=== PATIENT | female | born 1945 | race Caucasian/White ===

== ENCOUNTER 2023-04-04 12:06 | Emergency (ER) | payer MEDICARE, SELFPAY ==
[2023-04-04 12:08] VITALS: BP 160/78
[2023-04-04 13:03] VITALS: BMI 27.2
--- NOTE | 2023-04-04 13:36 | ED.GENMED ---
History of Present Illness
General
Chief Complaint: Musculo-Skeletal Complaint
Time Seen by Provider: 04/04/23 13:06
Travel History
Have you had any contact with someone who has COVID-19?: No
Do you have any symptoms of coronavirus? Fever > 100 degrees, chills, cough, shortness of breath, sore throat, loss of taste or smell, muscle aches, or headache?: No
History of Present Illness
History of Present Illness:
77-year-old female with history of A-fib on Eliquis presents to the emergency department for evaluation of left-sided low back developing earlier today while moving heavy things in her barn. Pain radiates from the upper gluteal region to the
anterior left thigh. Pain is worse when attempting to stand up. Denies any loss of bladder or bowel function. Took 2 Tylenol before coming in without relief. Denies any falls or direct trauma
Past History
Past History
ED Past Medical History: Arrthythmia (Atrial flutter with ablation), CAD, Hypercholesterolemia, [place], Valvular disease and Other (Herniated disc, Diverticulitis, PE)
ED Past Surgical History: Cardiac (Aortic valve replaced,) and Cholecystectomy
Social History
Tobacco: Former smoker
Alcohol: Occasional
Drug: None
Personal: ( in Assisted living due to intracranial bleed after fall)
Living: alone
Employment: Employed
Family History
Family History: Other (Noncontributory)
Review of Systems
Review of Systems
Allergies reviewed?: Yes
All Other Systems: ROS reviewed and negative except as documented in HPI and ROS
Phy Exam
Physical Exam
Physical Exam:
GEN: Well appearing, NAD, WDWN
HEENT: Oral mucosa moist, no scleral icterus
Cardiac: Regular rate
Lung: No respiratory distress, no tachypnea
MSK: No gross deformity or injuries. No midline lumbar spine tenderness. There is reproducible tenderness to the left gluteal region. Significant pain with erect posture. Bilateral lower extremity strength is 5 out of 5 in all [place]
Skin: Good color, no pallor or jaundice, no rashes
Neuro: AO x3, moves all extremities freely
Psych: Calm, cooperative
Course
Orders/Labs/Results
Orders:
Orders
04/04/23 13:35
Lidocaine [Lidocaine 4% Patch] 1 patch TOPICAL NOW STA
Prednisone [Deltasone] 40 mg PO NOW STA
Tizanidine [Zanaflex] 2 mg PO NOW STA
Vital Signs
Initial and Last Documented VS:
Initial Vital Signs
Temp Pulse Resp BP Pulse Ox
97.8 F 66 18 160/78 99
04/04/23 12:08 04/04/23 12:08 04/04/23 12:08 04/04/23 12:08 04/04/23 12:08
Last Documented Vital Signs
Temp Pulse Resp BP Pulse Ox
97.8 F 66 18 160/78 99
04/04/23 12:08 04/04/23 12:08 04/04/23 12:08 04/04/23 12:08 04/04/23 12:08
MDM/Problems Addressed
MDM/Problems Addressed:
Symptoms consistent with lumbar radiculopathy potentially from disc herniation versus muscle spasm. Discussed supportive care and return parameters. Cannot treat with NSAIDs due to her use of anticoagulants. No traumatic injuries to suggest need
for imaging. No red flag symptoms concerning for cauda equina
*Critical Care Note
Total Time (30-74mins, 75-104mins- exclusive of procedures): Not Applicable
ED Attending Note
-
Portions of this chart may have been created with voice recognition software.� Occasional wrong word or��sound alike� substitutions may have occurred due to the inherent limitations of voice recognition software.
Discharge Plan
Departure
Patient Disposition: Home (Routine Discharge)
Date of Disposition: 04/04/23
Time of Disposition: 14:45
Patient with high blood pressure during this ER visit?: No
Discharge Problem:
Acute left lumbar radiculopathy
Instructions: Radiculopathy (DC)
Prescriptions:
New
methylprednisolone [Medrol (Kameron)] 4 mg tablets,dose pack
See Rx Instructions .ROUTE .COMPLEX Qty: 21 0RF
Rx Instructions:
orally per package directions
methocarbamol 750 mg tablet
750 - 1,500 mg PO TID PRN (Reason: pain) Qty: 20 0RF
No Action
nadolol [Corgard] 20 MG tablet
10 mg PO DAILY
Eliquis 5 MG tablet
5 mg PO BID Qty: 60 3RF
[facility]
1 tab PO DAILY
Referrals:
Saba Arndt MD [Family Provider] -
Interventions
Interventions:
*Risk Screen - Suicide Last Done: 04/04/23 12:11
*General Assessment Last Done: 04/04/23 12:11
*Neglect/Abuse Screening Last Done: 04/04/23 12:11
ED- Fall Risk Assessment Last Done: 04/04/23 13:03
*ED COVID-19 Vaccine History Last Done: 04/04/23 13:03
*Nursing Disposition Last Done: 04/04/23 14:48
ED-Musculoskeletal Assessment Last Done: 04/04/23 13:03
Discharge Date and Time
Discharge Date/Time: 04/04/23 14:49
[2023-04-04] MEDS: LIDOCAINE 4% PATCH 1 PATCH TOPICAL (13:42)
[2023-04-04] MEDS: DELTASONE 40 MG PO (13:45)
[2023-04-04] MEDS: ZANAFLEX 2 MG PO (13:45)
== END 2023-04-04 14:49 | disposition home or self-care (01) ==
LOC: EMR 12:06
PROVIDERS: EMERGENCY PHYSICIAN Emergency Medicine; FAMILY PHYSICIAN Internal Medicine
DX: M54.16 Radiculopathy, lumbar region (principal); I48.91 Unspecified atrial fibrillation; Z87.891 Personal history of nicotine dependence
CPT/HCPCS: 99283

== ENCOUNTER → 2023-04-28 10:46 | Outpatient (REF) | payer MEDICARE, SELFPAY | LOC: DHCBS HW 10:46 | PROVIDERS: ATTENDING PHYSICIAN Internal Medicine Cardiovascular Disease; FAMILY PHYSICIAN Internal Medicine | DX: I35.0 Nonrheumatic aortic (valve) stenosis (principal) | CPT/HCPCS: 93306 ==

== ENCOUNTER → 2023-12-26 09:30 | Outpatient (REF) | payer MEDICARE, SELFPAY | LOC: PAVMRI 09:30 | PROVIDERS: ATTENDING PHYSICIAN Hospitalist | DX: K76.89 Other specified diseases of liver (principal) | CPT/HCPCS: 74183; A9575 ==

== ENCOUNTER 2024-02-27 23:48 | Inpatient (IN) | payer MEDICARE, SELFPAY ==
[2024-02-27 19:32] VITALS: BP 134/55
[2024-02-27 22:23] VITALS: BMI 25.8
--- NOTE | 2024-02-27 23:00 | ED.GENMED ---
History of Present Illness
General
Chief Complaint: Abnormal Lab Value
Source: patient
Exam Limitations: none
Time Seen by Provider: 02/27/24 22:50
History of Present Illness
History of Present Illness:
See MDM
Past History
Past History
ED Past Medical History: Arrthythmia (Atrial flutter with ablation), CAD, Hypercholesterolemia, [place], Valvular disease and Other (Herniated disc, Diverticulitis, PE)
ED Past Surgical History: Cardiac (Aortic valve replaced,) and Cholecystectomy
Social History
Tobacco: Former smoker
Alcohol: Occasional
Drug: None
Personal: ( in Assisted living due to intracranial bleed after fall)
Living: alone
Employment: Employed
Family History
Family History: Other (Noncontributory)
Phy Exam
Physical Exam
Physical Exam:
See MDM
Course
Vital Signs
Initial and Last Documented VS:
Initial Vital Signs
Temp Pulse Resp BP Pulse Ox
98 F 55 18 134/55 96
02/27/24 19:32 02/27/24 19:32 02/27/24 19:32 02/27/24 19:32 02/27/24 19:32
Last Documented Vital Signs
Temp Pulse Resp BP Pulse Ox
98 F 55 18 134/55 96
02/27/24 19:32 02/27/24 19:32 02/27/24 19:32 02/27/24 19:32 02/27/24 19:32
MDM/Problems Addressed
Differential Diagnosis Includes:
HPI and MDM Narrative:
78-year-old female presenting with several days of bright red rectal bleeding. Patient had blood work and CT performed earlier today and was told to go to the emergency department. Patient is aware that she has a history of diverticulosis. She
states that she had blood with bowel movements but stopped eating to see if this would resolve the problem. Patient now was passing bright red blood with clots.
On exam, she is well-appearing nontoxic. Her abdomen is soft and nontender. Given the rectal bleeding with clots, discussed likely internal hemorrhoid versus diverticulosis bleed. Will admit overnight for hemoglobin trending
Physical exam
General: Well appearing and non-toxic
HEENT: protecting airway
Neck: appears supple
CV: No evidence of cyanosis. Regular rate and rhythm
Resp: No accessory muscle use
Abd: Non-distended and nontender
Extremities: No deformities
Neuro: alert
Psych: Normal affect
Skin: Intact
Problems Addressed including Acute and Chronic Conditions affecting care:
1. Lower GI bleeding
Acuity: acute
Prognosis: stable
Details: Given bright red blood with clots some internal process such as internal hemorrhoid versus diverticulosis. Outpatient CT confirms diverticulosis without other significant abnormality. Will admit overnight for hemoglobin trending
Differential Diagnosis (but not limited to):
Testing considered:
Drug therapy (if applicable): OTC meds, please see d/c instruction regarding Rx drugs
Amount and/or Complexity of Data Reviewed
Clinical info obtained from: Patient
External data reviewed: N/A
Labs I independently reviewed (but not limited to): hgb stable
Radiology: the CT scan was personally and independently reviewed. In addition, official CT report reviewed.
Pulse Ox: not hypoxic
EKG independently reviewed: N/A
Justice Court Judge: N/A
Critical Care: N/A
Risk of Complication:
Social Determinants of health: Good social support
Discussed with other providers: Hospitalist
Escalation of Care includes Admit/Obs: Given the rectal bleeding while on Eliquis, will admit for hemoglobin trending
Occasional wrong word or 'sound a like' substitutions may have occurred due to the inherent limitations of voice recognition software. Read the chart carefully and recognize, using context, where substitutions have occurred.
*Critical Care Note
Total Time (30-74mins, 75-104mins- exclusive of procedures): Not Applicable
ED Attending Note
-
Portions of this chart may have been created with voice recognition software.� Occasional wrong word or��sound alike� substitutions may have occurred due to the inherent limitations of voice recognition software.
Discharge Plan
Departure
Patient Disposition: Admit
Date of Disposition: 02/27/24
Time of Disposition: 23:12
Admit to: Med/Surg
Presentation/result/management discussed w/ accepting MD/DO: Hospitalist
Discharge Problem:
Acute lower GI bleeding
Prescriptions:
No Action
nadolol [Corgard] 20 MG tablet
10 mg PO DAILY
Eliquis 5 MG tablet
5 mg PO BID Qty: 60 3RF
[facility]
1 tab PO DAILY
methylprednisolone [Medrol (Kameron)] 4 mg tablets,dose pack
See Rx Instructions .ROUTE .COMPLEX Qty: 21 0RF
Rx Instructions:
orally per package directions
methocarbamol 750 mg tablet
750 - 1,500 mg PO TID PRN (Reason: pain) Qty: 20 0RF
Interventions
Interventions:
*Risk Screen - Suicide Last Done: 02/27/24 22:23
*General Assessment Last Done: 02/27/24 22:23
*Neglect/Abuse Screening Last Done: 02/27/24 22:23
ED- Fall Risk Assessment Last Done: 02/27/24 22:23
*ED COVID-19 Vaccine History Last Done: 02/27/24 22:23
Discharge Date and Time
Print Language: ROMANIAN
--- NOTE | 2024-02-27 23:11 | HPS.HSE ---
Family Physician
-
Family Physician:
Chief Complaint
-
Rectal bleeding
History of Present Illness
78-year-old with past medical history for A-fib, coronary artery disease, hyperlipidemia, [place], PE, rectal bleed presented to us with rectal bleeding for past 3 days. Patient complained of lower abdominal pain. Patient stated it was bloody diarrhea
associated with some clots. Denied nausea vomiting. Patient denied any headache, dizziness, syncope. Patient denied any chest pain or short of breath. Patient denied dysuria hematuria. Denied NSAID use
Her last colonoscopy was 6 years ago. She is scheduled for colonoscopy for March 20
Hemoglobin is stable at 14.4 admitting for further management.
Medical History
Past Medical History
Past Medical History: Reports Other
Additional Past Medical History:
Diverticulosis
Chronic A-fib
Hyperlipidemia
Pulmonary nodule
Pancreatic cyst
PE
Chronic heart failure
Guillain-Valenzuela�
Restrictive lung disease
LYMEDisease
Past Surgical History: Reports Other
Additional Past Surgical History:
Tonsillectomy
Cholecystectomy
Left wrist ORIF
Coronary artery bypass graft
Cardiac ablation
Aortic valve replaced replacement
Social History
Tobacco: Former Smoker
Alcohol: Occasional
Drug: None
Family History
Family History: Not pertinent
Allergies / Home Medications
Allergies reflects when Allergies were last updated in [facility].
Home Medications with original date entered in [facility]
Allergy/Medication List:
Allergies
Allergy/AdvReac Type Severity Reaction Status Date / Time
amiodarone [Amiodarone] Allergy Anaphylaxis Verified 04/04/23 12:11
hydrocodone bitartrate Allergy Vomiting Verified 04/04/23 12:11
[From Vicodin]
oxycodone HCl [From Percocet] Allergy Vomiting Verified 04/04/23 12:11
simvastatin [From Zocor] Allergy Hives Verified 04/04/23 12:11
Home Medications
apixaban 5 mg tablet (Eliquis) 5 mg PO BID #60 tabs 04/25/17
acetaminophen 500 mg tablet (Tylenol Extra Strength) 500 mg PO Q6HPRN PRN mild pain/fever 02/27/24
empagliflozin 10 mg tablet (Jardiance) 10 mg PO DAILY 02/27/24
ezetimibe 10 mg tablet 10 mg PO HS 02/27/24
nadolol 20 mg tablet 10 mg PO DAILY 02/27/24
Review of Systems
-
Constitutional: Reports No Symptoms
EENT: Reports No Symptoms
Respiratory: Reports No Symptoms
Cardiac: Reports No Symptoms
Abdomen/GI: Reports Abdominal Pain, Diarrhea and Bloody Stools
: Reports No Symptoms
Musculoskeletal: Reports No Symptoms
Skin: Reports No Symptoms
Neurological: Reports No Symptoms
Endocrine: Reports No Symptoms
Hematologic/Lymphatic: Reports No Symptoms
Psych: Reports No Symptoms
Physical Exam
Vital Signs
Vital Signs
Temp Pulse Resp BP Pulse Ox
98 F 55 18 134/55 96
02/27/24 19:32 02/27/24 19:32 02/27/24 19:32 02/27/24 19:32 02/27/24 19:32
Physical Exam
General: Well Developed, Well Nourished and No Apparent Distress
HEENT: NormoCephalic, Moist mucous membranes and Atraumatic
Respiratory: Clear
Cardiac: S1/S2 and Regular Rhythm; No Murmur or Rub
GI: Soft, Non Tender, Non Distended and Normal Bowel Sounds; No Organomegaly
Rectal: Deferred by Provider
Musculoskeletal: No Clubbing, No Cyanosis and No Edema
Skin: No Rash
Neuro: AO x 3 and Nonfocal/grossly intact
Psych: Calm
Data Reviewed
-
CT Scan: Report Reviewed by me
Lab Data: Labs Reviewed by me
Impression/Plan
-
# Rectal bleeding on anticoagulant
-Hemoglobin stable at 14.4
-CT abdomen pelvis with impression of Descending colon and sigmoid diverticulosis limited without oral contrast opacification, without gross accompanying inflammatory changes. No intestinal obstruction or free air.Numerous hepatic low-attenuation
lesions only the largest of which can be confirmed as cysts.Small fat only containing umbilical hernia.Symmetric renal excretion.Prior cholecystectomy.
-Trend hemoglobin
-Clear liquid diet for now
-IV PPI
-GI consult
# Hyperkalemia
-K5.5
-Trend BMP
# History of A-fib
-Will obtain EKG
-Hold Eliquis
-NADOLOL continued
# History of CHF
-patient not in acute exacerbation
-Jardiance continued
-She is not on diuretics
# Hyperlipidemia
-Zetia continued
# DVT prophylaxis
-SCDs
# CODE STATUS
-Full code
--- NOTE | 2024-02-27 23:28 | W.PN.UPDATE ---
Update Note
Progress Note Update
This note serves as an addendum to the H&P by theater set production designer MARIA
[place] LISSET
HPI
78F HX Atrial flutter with ablation on chr eliquis, AoVR, MD, CAD, Hypercholesterolemia seen at ER
- Acute rectal bleed for last 3 days
- Had s/p OP CT AP with IV & oral contrast POS Descending colon and sigmoid diverticulosis
- Current Hgb 14 and stable
- Hemodynamically stable
- last dose of Eliquis oat 8am 02/27/24
PHX as above
Vital Signs
Temp Pulse Resp BP Pulse Ox
98 F 55 18 134/55 96
02/27/24 19:32 02/27/24 19:32 02/27/24 19:32 02/27/24 19:32 02/27/24 19:32
PE
Gen: not toxic , NAD
HEENT: anicteric
Neck: supple
Lungs: CTA
Cor: RRR S1 S2
Abdomen: soft non tender
RADIO PERFORMER: AAO3 NFND
MS: no edema
Psych: approbative
Laboratory Tests
11/22/22 02/27/24
11:10 12:43
Hgb 14.2 14.4
Potassium 5.5 H
eGFR > 60.00
CT Abd/pel W Iv And Oral Cont
- Descending colon and sigmoid diverticulosis limited without oral contrast opacification, without gross accompanying inflammatory changes. No intestinal obstruction or free air.
- Numerous hepatic low-attenuation lesions only the largest of which can be confirmed as cysts.
- Small fat only containing umbilical hernia.
- Symmetric renal excretion.
- Prior cholecystectomy.
ASSESSMENT & PLAN
Acute painful rectal bleed vs. hematochezia suspect Diverticulosis sv colitis
HX trial flutter with ablation eliquis: last dose was today 8am 02/27/24
Current Hgb 14s and stable
Hemodynamically stable
- NEG CT for any inflammatory changes
- clear
- observe Hgb
- IV PPI daily
- T & S , Blood consented
- if become active GI bleed , suggest CTA AP
- GI consult
Hyperkalemia due to GI reabsortiop ofg K gtomhemilezed bliid in the gut
- f/u K in AM
Chr conditions
HX AoVR
HX MD, CAD
Hypercholesterolemia
- Pending Rx reconciliation
DVT Px: SCD
Full code
IP TLM
[2024-02-27 23:30] VITALS: BP 133/89
[2024-02-28] VITALS (17 sets, daily range): BP systolic 103–133; BP diastolic 46–68; PULSE 54–81; BMI 25.9
--- NOTE | 2024-02-28 02:55 | PTCARENOTE ---
Received pt from ER into 2258 for rectal bleeding x 3 days. Pt is AAOx3 independent in the room. SR on the monitor VSS. Clear liquid diet.Call trinh within reach.
[2024-02-28 03:43] LABS: % Basophils 0.6 % (0-2); % Eosinophils 1.7 % (0-6); % Immature Granulocytes 0.2 % (0-0.5); % Lymphocytes 26.8 % (20.5-51.1); % Monocytes 10.1 % (1.7-9.3); % Neutrophils 60.6 % (42.2-75.2); Absolute Eosinophils 0.1 10^3/uL (0-0.7); Absolute Lymphocytes 1.4 10^3/uL (1.2-3.4); Absolute Monocytes 0.5 10^3/uL (0.1-0.6); Absolute Neutrophils 3.2 10^3/uL (1.4-6.5); Hematocrit 35.5 % (37.0-47.0); Hemoglobin 12.2 g/dL (12.0-16.0); Mean Corp Hgb Conc. 34.4 g/dL (33.0-37.0); Mean Corpuscular Hgb 32.7 pg (27.0-31.0); Mean Corpuscular Volume 95.2 fL (81.0-99.0); Mean Platelet Volume 11.5 fL (7.4-10.4); Nucleated Red Blood Cells % 0 %; Platelet Count 180 10^3/uL (130-400); Red Blood Cell Count 3.73 10^6/uL (4.20-5.40); Red Cell Dist. Width 12.3 % (11.5-14.5); White Blood Cell Count 5.2 10^3/uL (4.8-10.8)
[2024-02-28 04:04] LABS: Blood Urea Nitrogen 18 mg/dl (7-17); Calcium 8.8 mg/dl (8.4-10.2); Carbon Dioxide 25 mmol/L (22-30); Chloride 102 mmol/L (98-107); Estimated Creatinine Clearance 56 ml/min; Glucose 71 mg/dl (70-99); Potassium 4.3 mmol/L (3.5-5.1); Sodium 134 mmol/L (135-145); eGFR > 60.00
[2024-02-28] MEDS: NSS (PRESERVATIVE FREE) 10 ML IV (07:54)
[2024-02-28] MEDS: PROTONIX IV 40 MG IV (07:54)
[2024-02-28] MEDS: FARXIGA 10 MG PO (07:54)
--- NOTE | 2024-02-28 07:56 | CON.GI ---
Addendum entered and electronically signed by Tanesha Connor MD 02/28/24 15:51:
I saw and examined the patient.
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
Comment: 78-year-old female with history of atrial flutter on Eliquis, history of diverticulitis in the past, CAD presented with lower abdominal discomfort and also rectal bleeding on and off in the last week. Reports bright blood in the toilet
bowl with normal looking stool, this morning had multiple loose stool but blood only on the toilet tissue. Rectal exam was heme-negative brown stool.CT scan of the abdomen pelvis with IV and oral contrast showing diverticulosis without any evidence
of diverticulitis and numerous liver cysts noted, oral contrast did not completely opacify the bowel. Last colonoscopy in [address] Young, diverticulosis noted.
History of diverticulitis, last 1 4 years ago. She was scheduled to have colonoscopy with Dr. De Oliveira in the fall but canceled multiple times due to COVID and prep intolerance. Currently has it scheduled for 03/20.
-Lower abdominal cramping, loose stool and also bloody bowel movements
No evidence of diverticulitis on CAT scan
Cannot rule out infectious diarrhea, will check stool for culture, C. difficile, WBC, norovirus.
Okay for full liquid diet.
Bloody bowel movements could be related to hemorrhoids given there was no significant drop in hemoglobin and heme-negative stool.
Agree with Anusol suppository.
If no further bleeding, okay to resume anticoagulation and keep up with the colonoscopy appointment 03/20. Suggested that patient should try either Plenvu or Suflave but slow down if she gets nauseous as she did report intolerance to Sutabs and
MiraLAX in the past.
If bleeding continues, will do Colonoscopy inpatient
-History of pancreatic cysts on MRI in December 2023, repeat in 1 year.
Will follow
Original Note:
Consultation
-
Date/Time Consultation Requested: 02/28/24114
Date/Time Consultation Performed: 02/28/24 0930
Requesting Provider: HENRIK Stout
Performing Provider: HENRIK Peters, Tanesha Connor MD
Reason for Consultation: rectal bleeding
Medical History
Chief Complaint / HPI
Chief Complaint: rectal bleeding.
History of Present Illness:
Pt is a 78yo with hx A flutter with prior ablation on Eliquis, pancreatic tail lesion, CAD, hypercholesterolemia, HI, valvular disease with prior AVR, herniated disc, diverticulitis, PE, prior jennifer with onset rectal bleeding with bloody stool with
clots. CT completed on admission with IV and oral with diverticulosis with milted oral contrast opacification,, hepatic lesions largest noted cyst, fat containing hernia and prior jennifer. Last colonoscopy [address] Young with noted diverticulosis
exam otherwise normal. Pt has been scheduled several time this fall for colonoscopy with lyme then covid and difficulty with prep now due to complete 03/[address] De Oliveira.
In review with patient she began with rectal bleeding with some lower abdominal pain about 4-5 days ago. She admits to some loose stool and red blood in entire bowel with clots and formed stool. hbg 12.2 on admission with no further stool,
blood or pain since admission. She is on chronic Eliquis that she took 02/26. She denies odynophagia, GERD, nausea, vomiting, constipation or black stools. She did vomiting blood with attempted prep in past but no recurrence.
Pt also noted with 1.5 cm pancreatic tail cystic lesion with slight increased on MRI in December with recommended 1 year follow up.
Past Medical History
Past Medical History: Arrhythmias (aflutter with prior ablation), CAD, Hypercholesterolemia, HI, Valvular Disease and Other (herniated disc, diverticulitis, PE, pancreatic tail cyst )
Past Surgical History: Cardiac (AVR ) and Cholecystectomy
Social History
Tobacco: Former Smoker (in teen years only )
Alcohol: Daily (1 glass wine daily )
Drug: None
Living: Alone
Employment: Retired
Family History
Family History: Other (sister wtih colon CA in 80's)
Allergies / Home Medications
Allergy/AdvReac Type Severity Reaction Status Date / Time
amiodarone [Amiodarone] Allergy Anaphylaxis Verified 04/04/23 12:11
hydrocodone bitartrate Allergy Vomiting Verified 04/04/23 12:11
[From Vicodin]
oxycodone HCl [From Percocet] Allergy Vomiting Verified 04/04/23 12:11
simvastatin [From Zocor] Allergy Hives Verified 04/04/23 12:11
�Medication �Instructions �Recorded
apixaban 5 mg tablet (Eliquis) 5 mg PO BID #60 tabs 04/25/17
acetaminophen 500 mg tablet 500 mg PO Q6HPRN PRN mild 02/27/24
(Tylenol Extra Strength) pain/fever
empagliflozin 10 mg tablet 10 mg PO DAILY 02/27/24
(Jardiance)
ezetimibe 10 mg tablet 10 mg PO HS 02/27/24
nadolol 20 mg tablet 10 mg PO DAILY 02/27/24
Review of Systems
-
History Source: Patient
Constitutional: Reports Other (lightheadedness )
EENT: Reports No Symptoms
Respiratory: Reports No Symptoms
Cardiac: Reports No Symptoms
Abdomen/GI: Reports Abdominal Pain and Bloody Stools
: Reports No Symptoms
Musculoskeletal: Reports No Symptoms
Skin: Reports No Symptoms
Neurological: Reports Weakness
Endocrine: Reports No Symptoms
Hematologic/Lymphatic: Reports Bleeding
Vital Signs
Temp Pulse Resp BP Pulse Ox
98.6 F 62 20 105/63 97
02/28/24 01:22 02/28/24 07:00 02/28/24 01:22 02/28/24 05:13 02/28/24 01:22
Physical Exam
Exam
General: Well Developed, Well Nourished and No Apparent Distress
HEENT: Normocephalic and Anicteric
Respiratory: Clear
Cardiac: Regular Rhythm and Murmur
GI: Soft, Non Tender and Non Distended
Rectal: Brown, Hem Negative and Hemorrhoids
Musculoskeletal: No Clubbing and No Cyanosis
Skin: Warm and Dry
Neuro: Awake, Alert and AO x 3
Psych: Calm
Results
WBC 5.2 10^3/uL (4.8-10.8) 02/28/24 03:17
Hgb 12.2 g/dL (12.0-16.0) 02/28/24 03:17
Hct 35.5 % (37.0-47.0) L 02/28/24 03:17
MCV 95.2 fL (81.0-99.0) 02/28/24 03:17
Plt Count 180 10^3/uL (130-400) 02/28/24 03:17
Absolute Neuts (auto) 3.2 10^3/uL (1.4-6.5) 02/28/24 03:17
Sodium 134 mmol/L (135-145) L 02/28/24 03:17
Potassium 4.3 mmol/L (3.5-5.1) 02/28/24 03:17
Chloride 102 mmol/L (98-107) 02/28/24 03:17
Carbon Dioxide 25 mmol/L (22-30) 02/28/24 03:17
BUN 18 mg/dl (7-17) H 02/28/24 03:17
Creatinine 0.7 mg/dL (0.6-1.0) 02/28/24 03:17
Calcium 8.8 mg/dl (8.4-10.2) 02/28/24 03:17
Diagnostic Image Results:
02/27/24 CT A/p with IV and oral
Descending colon and sigmoid diverticulosis limited without oral contrast opacification, without gross accompanying inflammatory changes. No intestinal obstruction or free air.
Numerous hepatic low-attenuation lesions only the largest of which can be confirmed as cysts.
Small fat only containing umbilical hernia.
Symmetric renal excretion.
Prior cholecystectomy.
12/26/23 MR abdomen
Redemonstration of a pancreatic tail cystic lesion without suspicious features measuring up to 1.5 cm, slightly increased from prior exams. Recommend follow-up MRI/MRCP abdomen without and with gadolinium contrast in one year per ACR criteria.
Redemonstration of benign appearing hepatic cysts.
Prior GI Procedures:
EGD: ? in past
Colonoscopy: [address] Young with noted diverticulosis exam otherwise normal.
Assessment / Plan
-
Pt is a 78yo with hx A flutter with prior ablation on Eliquis, pancreatic tail lesion, CAD, hypercholesterolemia, HI, valvular disease with prior AVR, herniated disc, diverticulitis, PE, prior jennifer with onset rectal bleeding with bloody stool with
clots. CT completed on admission with IV and oral with diverticulosis with milted oral contrast opacification,, hepatic lesions largest noted cyst, fat containing hernia and prior jennifer. Last colonoscopy [address] Young with noted diverticulosis
exam otherwise normal. Pt has been scheduled several time this fall for colonoscopy with lyme then covid and difficulty with prep now due to complete 03/[address] De Oliveira. Pt also noted with 1.5 cm pancreatic tail cystic lesion with slight increased
on MRI in December with recommended 1 year follow up.
-rectal bleeding
-lower abdominal pain
-hemorrhoids noted on exam
-family hx colon CA
-hx aflutter/ablation on Eliquis
other med problems:
-pancreatic tail lesion followed by MRI
-CAD
-hypercholesterolemia
-CAD
-prior HI
valuvular disease with prior AVR
-diverticulitis
-hx PE
-prior jennifer
PLAN:
etiology of bleeding related colitis with some lower abdominal pain but Ct with limited oral contrast in colon not seen, hemorrhoids as noted on exam, diverticular bleed but slow bleed over 4-5 day, vs underlying colon lesion vs other
cont clear diet
reviewed with patient options of colonoscopy during admission as currently pain free and abdominal pain resolved vs proceed with OP testing scheduled 03/[address] De Oliveira
she is considering options and will review with Dr. Connor
cont Eliquis hold
add Anusol with some slight irritation of hemorrhoid on exam
trend hbg and stool records-- hbg remains normal at 12.2
I sent message to scheduling if proceeding OP -- pt need to review OP prep as some vomiting with prior prep
OP follow up with MRI for pancreatic cyst noted on MRI 12/2023
will follow
-
-
Thank you for consultation and allowing me to participate in the patient's care. Please call the management consulting GI physician during the after hours with any questions or concerns.
[2024-02-28] MEDS: CORGARD PO (07:57)
--- NOTE | 2024-02-28 09:24 | CM ---
Reviewed chart. Met with Giana to review discharge plans. She states prior to admission she resides alone in a two stor y home with six steps to enter. She states she has a full flight of steps to get to bedroom. She states she has a full bathroom
on each floor. She states prior to admission she was independent with ambulation and adls. She states she does not have any DME in the home. She states she has a prescription plan. Medical work-up in progress. The discharge plan is to return
home when medically stable.
--- NOTE | 2024-02-28 11:04 | PTCARENOTE ---
Rec'd pt at handoff. Tele- SB. Pt has no complaints at this time. Assessment completed as documented. Call gayathri w/in reach.
--- NOTE | 2024-02-28 13:05 | W.PN.HOSP.TC ---
Today's Communication/Plan
-
Await GI input
Assessment / Plan
Assessment / Plan
Gen-AAOx3, NAD
HEENT-NC, AT, anicteric, clear oral mm
Neck-supple
CV-reg, no M, +S1/S2
Lungs-clear B/L
Abd-soft, NT, ND
Ext-no edema
Musculoskeletal-no cyanosis, clubbing
Skin-warm and dry
Neuro-grossly non-focal
Psych-calm, cooperative
Acute lower GI bleed -hemodynamically stable. Differential diagnosis includes hemorrhoids versus diverticular versus other. Awaiting GI input. Clear liquid diet. Hemoglobin 12.2 this morning, will monitor.
Hyponatremia -sodium 134. Monitor for now.
Atrial flutter -Eliquis on hold for GI bleed. History of ablation in the past.
History of AVR
CAD -history of [place].
Hyperlipidemia
Diverticulosis
Pancreatic tail cyst
History of pulmonary embolism
Full code
Anticipated Discharge: 24 - 48 hours
Subjective/Interval History
-
Date of Service: February 28, 2024
Patient seen and examined. Still with blood on toilet paper when she wipes this morning. Mild lower abdominal discomfort.
Objective Data
-
Labs:
Laboratory Results
02/28/24 02/28/24
01:15 03:17
WBC Cancelled 5.2
Hgb Cancelled 12.2
Hct Cancelled 35.5 L
Plt Count Cancelled 180
Sodium 134 L
Potassium 4.3
Chloride 102
Carbon Dioxide 25
BUN 18 H
Creatinine 0.7
Glucose 71
Calcium 8.8
Vital Signs:
Vital Signs
Temp Pulse Resp BP Pulse Ox
98.2 F 62 18 105/63 98
02/28/24 11:08 02/28/24 07:00 02/28/24 11:08 02/28/24 05:13 02/28/24 11:08
Review of Systems
-
History Source: Patient
All other systems: Reviewed and negative
--- NOTE | 2024-02-28 20:29 | PTCARENOTE ---
Pt. received at change of shift. Pt. seen and assessed in room. Pt. AOx3. Tele reading sinus zahira/NSR. No complaints of pain at this time. Ambulating in hallway with ease. This RN explained plan of care, pt. verbalizes understanding to RN. Call
trinh within reach. Continuing to monitor at this time.
[2024-02-28] MEDS: ZETIA 10 MG PO (22:30)
[2024-02-29] VITALS (7 sets, daily range): BP systolic 110–131; BP diastolic 53–70; BMI 25.8
[2024-02-29 05:23] LABS: Hematocrit 37.2 % (37.0-47.0); Hemoglobin 12.9 g/dL (12.0-16.0); Mean Corp Hgb Conc. 34.7 g/dL (33.0-37.0); Mean Corpuscular Hgb 32.3 pg (27.0-31.0); Mean Platelet Volume 11.3 fL (7.4-10.4); Platelet Count 181 10^3/uL (130-400); Red Cell Dist. Width 12.4 % (11.5-14.5)
[2024-02-29] MEDS: NSS (PRESERVATIVE FREE) 10 ML IV (08:28)
[2024-02-29] MEDS: FARXIGA 10 MG PO (08:28)
[2024-02-29] MEDS: PROTONIX IV 40 MG IV (08:28)
[2024-02-29] MEDS: CORGARD 10 MG PO (08:28)
--- NOTE | 2024-02-29 09:53 | W.PN.UPDATE ---
Update Note
Progress Note Update
Comment: 78-year-old female with history of atrial flutter on Eliquis, history of diverticulitis in the past, CAD presented with lower abdominal discomfort and also rectal bleeding on and off in the last week admitted with BRBPR. Imaging showed
diverticulosis without diverticulitis. Rectal exam was heme-negative brown stool.
No episodes of bleeding overnight with stable Hgb. Okay to discharge today from a GI perspective, has colonoscopy scheduled with Dr. De Oliveira on 03/20. Suspect hemorrhoidal bleeding, recommending Anusol suppositories on discharge in addition to bowel
regimen. Okay to resume AC.
Needs repeat MRI 12/2024 for pancreatic cysts seen on MRI.
Discussed with Dr. Joseph
GI will sign off please call with questions.
--- NOTE | 2024-02-29 09:55 | W.PN.HOSP.TC ---
Today's Communication/Plan
-
Discharge
Assessment / Plan
Assessment / Plan
Gen-AAOx3, NAD
HEENT-NC, AT, anicteric, clear oral mm
Neck-supple
CV-reg, no M, +S1/S2
Lungs-clear B/L
Abd-soft, NT, ND
Ext-no edema
Musculoskeletal-no cyanosis, clubbing
Skin-warm and dry
Neuro-grossly non-focal
Psych-calm, cooperative
Acute lower GI bleed -hemodynamically stable. Differential diagnosis includes hemorrhoids versus diverticular versus other. Bleeding resolved. Hemoglobin stable. Discussed with GI service, okay to discharge today. Resume Eliquis. Scheduled for
colonoscopy on March 20.
Hyponatremia -sodium 134. Monitor for now.
Atrial flutter -resume Eliquis on discharge.
History of AVR
CAD -history of [place].
Hyperlipidemia
Diverticulosis
Pancreatic tail cyst
History of pulmonary embolism
Full code
Dispo -medically stable for discharge home today. Outpatient follow-up.
32-minute spent in discharge process.
Anticipated Discharge: Today
Subjective/Interval History
-
Date of Service: February 29, 2024
Patient seen and examined. No complaints. Denies further bleeding.
Objective Data
-
Labs:
Laboratory Results
02/29/24
05:04
WBC 5.0
Hgb 12.9
Hct 37.2
Plt Count 181
Vital Signs:
Vital Signs
Temp Pulse Resp BP Pulse Ox
97.6 F 73 18 131/65 96
02/29/24 06:48 02/29/24 08:45 02/29/24 06:48 02/29/24 06:48 02/29/24 06:48
I&O
02/28/24 02/29/24 03/01/24
06:59 06:59 06:59
Intake Total 580 / 580 400 / 400
Balance 580 / 580 400 / 400
Review of Systems
-
History Source: Patient
All other systems: Reviewed and negative
--- NOTE | 2024-02-29 09:58 | W.DS.TRANS ---
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
-
Discharge Instructions:
Sleep Apnea Risk Low
Discharge Diagnosis/Procedures Lower GI bleed
Diet Regular
Activity As tolerated
Driving Restrictions As prior to admission
Bathing Restrictions None
Instructions:
Stand-Alone Forms:
Changes to Home Medications: No
Discharge Medications:
DC Medications w/original date entered in [facility]
apixaban 5 mg tablet (Eliquis) 5 mg PO BID #60 tabs 04/25/17
acetaminophen 500 mg tablet (Tylenol Extra Strength) 500 mg PO Q6HPRN PRN mild pain/fever 02/27/24
empagliflozin 10 mg tablet (Jardiance) 10 mg PO DAILY 02/27/24
ezetimibe 10 mg tablet 10 mg PO HS 02/27/24
nadolol 20 mg tablet 10 mg PO DAILY 02/27/24
hydrocortisone acetate 25 mg rectal suppository 25 mg VA HS #12 ea 02/29/24
Home Medication Changes
Pending Results: No
== END 2024-02-29 11:00 | disposition home or self-care (01) | DRG 378 ==
LOC: IVU 23:48
PROVIDERS: Nurse Practitioner Adult Health; Registered Nurse; ADMITTING PHYSICIAN Internal Medicine; ATTENDING PHYSICIAN Hospitalist; CONSULT PHYSICIAN Internal Medicine Gastroenterology; EMERGENCY PHYSICIAN Student in an Organized Health Care Education/Training Program; FAMILY PHYSICIAN Internal Medicine
DX: K57.91 Diverticulosis of intestine, part unspecified, without perforation or abscess with bleeding (principal); E87.1 Hypo-osmolality and hyponatremia; I48.92 Unspecified atrial flutter; I48.20 Chronic atrial fibrillation, unspecified; I25.10 Atherosclerotic heart disease of native coronary artery without angina pectoris; E78.00 Pure hypercholesterolemia, unspecified; Z86.711 Personal history of pulmonary embolism; Z90.49 Acquired absence of other specified parts of digestive tract; Z95.1 Presence of aortocoronary bypass graft; Z87.891 Personal history of nicotine dependence; Z88.5 Allergy status to narcotic agent; Z79.01 Long term (current) use of anticoagulants; I50.9 Heart failure, unspecified; E87.5 Hyperkalemia; K64.9 Unspecified hemorrhoids; Z95.2 Presence of prosthetic heart valve; Z80.0 Family history of malignant neoplasm of digestive organs; Z79.84 Long term (current) use of oral hypoglycemic drugs; I25.2 Old myocardial infarction; K42.9 Umbilical hernia without obstruction or gangrene
CPT/HCPCS: 36415; 74177; 80048; 80053; 85025; 85027; 99284; Q9967

== ENCOUNTER → 2024-03-06 14:04 | Outpatient (REF) | payer MEDICARE, SELFPAY | LOC: WDC 14:04 | PROVIDERS: ATTENDING PHYSICIAN Hospitalist | DX: Z12.31 Encounter for screening mammogram for malignant neoplasm of breast (principal) | CPT/HCPCS: 77063; 77067 ==

== ENCOUNTER → 2024-04-03 11:45 | Outpatient (REF) | payer MEDICARE, SELFPAY | LOC: RAD 11:45 | PROVIDERS: ATTENDING PHYSICIAN Internal Medicine | DX: J06.9 Acute upper respiratory infection, unspecified (principal) | CPT/HCPCS: 71046 ==

== ENCOUNTER → 2024-04-10 10:16 | Outpatient (REF) | payer MEDICARE, SELFPAY | LOC: RCS 10:16 | PROVIDERS: ATTENDING PHYSICIAN Internal Medicine Cardiovascular Disease; FAMILY PHYSICIAN Internal Medicine | DX: I35.0 Nonrheumatic aortic (valve) stenosis (principal); I48.0 Paroxysmal atrial fibrillation | CPT/HCPCS: 93306 ==

== ENCOUNTER 2024-05-01 06:21 | Day surgery (SDC) | payer MEDICARE, SELFPAY | END 2024-05-01 09:26 | disposition home or self-care (01) | LOC: GI 06:21 | PROVIDERS: ATTENDING PHYSICIAN Internal Medicine | DX: K64.9 Unspecified hemorrhoids (principal); Z80.0 Family history of malignant neoplasm of digestive organs | CPT/HCPCS: G0105; 93005 ==

== ENCOUNTER 2024-05-14 19:51 | Day surgery (SDC) | payer MEDICARE, SELFPAY ==
[2024-05-14 12:41] VITALS: BP 136/62
[2024-05-14 13:02] LABS: % Eosinophils 1.1 % (0-6); % Immature Granulocytes 0.3 % (0-0.5); % Lymphocytes 22.3 % (20.5-51.1); % Monocytes 9.4 % (1.7-9.3); % Neutrophils 65.9 % (42.2-75.2); Absolute Basophils 0.1 10^3/uL (0-0.2); Absolute Eosinophils 0.1 10^3/uL (0-0.7); Absolute Lymphocytes 1.6 10^3/uL (1.2-3.4); Absolute Monocytes 0.7 10^3/uL (0.1-0.6); Absolute Neutrophils 4.8 10^3/uL (1.4-6.5); Hemoglobin 13.2 g/dL (12.0-16.0); Mean Corpuscular Volume 97.1 fL (81.0-99.0); Mean Platelet Volume 10.8 fL (7.4-10.4); Nucleated Red Blood Cells % 0 %; Platelet Count 243 10^3/uL (130-400); Red Blood Cell Count 4.12 10^6/uL (4.20-5.40); Red Cell Dist. Width 12.6 % (11.5-14.5); White Blood Cell Count 7.3 10^3/uL (4.8-10.8)
[2024-05-14 13:17] LABS: ALT (SGPT) 21 U/L (0-35); AST (SGOT) 27 U/L (14-36); Albumin 4.3 g/dl (3.5-5.0); Alkaline Phosphatase 75 U/L (38-126); Blood Urea Nitrogen 21 mg/dl (7-17); Calcium 10.5 mg/dl (8.4-10.2); Carbon Dioxide 32 mmol/L (22-30); Chloride 101 mmol/L (98-107); Glucose 98 mg/dl (70-99); Potassium 4.6 mmol/L (3.5-5.1); Sodium 139 mmol/L (135-145); Total Bilirubin 1.3 mg/dl (0.2-1.3); eGFR > 60.00
[2024-05-14 13:29] LABS: Troponin I < 0.012 ng/ml
[2024-05-14 15:00] VITALS: BP 98/80
[2024-05-14 15:02] VITALS: BMI 27.8
[2024-05-14 16:00] VITALS: BP 121/83
--- NOTE | 2024-05-14 16:05 | ED.GENMED ---
History of Present Illness
<HENRIK Child - Last Filed: 05/15/24 07:40>
General
Chief Complaint: Chest Pain
Source: patient
Exam Limitations: none
Time Seen by Provider: 05/14/24 14:49
Nursing documentation reviewed up to this point in time: agreed with
History of Present Illness
History of Present Illness:
Patient is a 78-year-old female history of aortic valve replacement (15 years ago), CABG A-fib on Eliquis status post ablation, CHF she presents for chest pain patient reports this is day 3 where she has had chest pain with exertion. She has
noticed a growth gradual worsening of shortness of breath with exercise. She did call Dr. Maxwell office who recommended coming to the ED.
She denies any recent illness fever chills .
She denies any injury.
Past History
<HENRIK Child - Last Filed: 05/15/24 07:40>
Past History
ED Past Medical History: Arrthythmia (Atrial flutter with ablation), CAD, Hypercholesterolemia, [place], Valvular disease and Other (Herniated disc, Diverticulitis, PE)
ED Past Surgical History: Cardiac (Aortic valve replaced,) and Cholecystectomy
Social History
Tobacco: Former smoker
Alcohol: Occasional
Drug: None
Personal: ( in Assisted living due to intracranial bleed after fall)
Living: alone
Employment: Employed
Family History
Family History: Other (Noncontributory)
Review of Systems
<HENRIK Child - Last Filed: 05/15/24 07:40>
Review of Systems
Allergies reviewed?: Yes
All Other Systems: ROS reviewed and negative except as documented in HPI and ROS
Respiratory: Reports trouble breathing
Cardiac: Reports chest pain
ABD/GI: Reports no symptoms
: Reports no symptoms
Musculoskeletal: Reports no symptoms
Skin: Reports no symptoms
Neurological: Reports no symptoms
Psychiatric: Reports no symptoms
Phy Exam
<HENRIK Child - Last Filed: 05/15/24 07:40>
General Physical Exam
General Presentation: no apparent distress
General age: appears stated age
General Skin: warm and dry
General Habitus: normal
General Mental: alert
General Hydration: appears well hydrated
Cardiovascular Exam
Cardiovascular Exam: regular rate/rhythm, no murmur and normal peripheral pulses
Pulmonary Exam
Pulmonary Exam: lungs clear and no respiratory distress
Neurological Exam
Neurological Exam: alert and oriented x3
Musculoskeletal Exam
Musculoskeletal Exam: full ROM
Skin Exam
Skin Exam: normal color and warm/dry
Psychiatric Exam
Psychiatric Exam: normal mood/affect
Scores
<HENRIK Child - Last Filed: 05/15/24 07:40>
Heart Score for Chest Pain Patients
Heart Score for Chest Pain Patients: 3
Heart Score Risk: 2.5% MACE over next 6 weeks
<Pam Ching DO - Last Filed: 05/14/24 17:24>
Heart Score for Chest Pain Patients
STEMI patient?: No
History: Slightly or Non-Suspicious
ECG: Normal
Age: >/= 65 years
Risk Factors: 1 or 2 Risk Factors
Troponin: </= Normal Limit
Heart Score for Chest Pain Patients: 3
Heart Score Risk: 2.5% MACE over next 6 weeks
Course
<HENRIK Child - Last Filed: 05/15/24 07:40>
Orders/Labs/Results
Orders:
Orders
05/14/24 12:39
Electrocardiogram (*1) Urgent
Reason for Study: Chest Pain
EKG- Treatment ONCE
05/14/24 12:51
Complete Blood Count/With Diff Urgent
Comprehensive Metabolic Panel Urgent
Troponin I Urgent
05/14/24 Dinner
Cholesterol Lowering
At Your Request: Full Participation
05/14/24 15:43
Chest [CR Chest - 2 Views ] Urgent
Comment:
Reason For Exam: cp
05/14/24 16:30
Electrocardiogram (*1) Stat
Reason for Study: Other
Other Reason for Exam: chest pain
EKG- Treatment ONCE
05/14/24 16:36
NT-proBNP Urgent
Comment: ADD ON
Troponin I Urgent
05/14/24 17:00
Add On- LAB Urgent
Comments:: add on to ED labs
Tests Added?: probnp
05/14/24 17:35
Aspirin Chewable [Low Strength Aspirin] 324 mg PO NOW STA
Pantoprazole [Protonix] 40 mg PO NOW STA
05/14/24 17:50
Admit/Transfer Patient As Directed
Co-Sign Provider:
Level of Care: Observation services
Assign to:: IVU
Physician / Group: zita diez
Diagnosis: acs
05/14/24 18:17
PRN Pain Medication Management As Directed
May give lesser potent ordered pain med per pt: Yes
preference::
Protocol:: Medication orders for pain may be administered in a
manner that supports deferring to patient preference
when the pt is:
- Requesting an ordered lesser potent pain medication.
Least to most potent pain medications are defined
as: acetaminophen < NSAID < tramadol < opioids
(morphine, oxycodone, hydromorphone).
- Requesting a lesser dose of the same medication IF
ORDERED.
- Requesting a less intrusive route of administration
if both routes are prescribed by the provider (PO <
IV).
05/14/24 20:30
Acetaminophen [Tylenol] 500 mg PO Q6HPRN PRN
05/14/24 20:30
Sequential Compression Device [Pneumatic Compression Sleeves] As Directed
Type: Knee high
DX Deep Vein Thrombosis Video Routine
05/14/24 22:00
Ezetimibe [Zetia] 10 mg PO HS
05/15/24 03:46
Troponin I IN AM
05/15/24 06:00
Echo Follow up Study W Dop IN AM
Reason for Study: look at , AI and EF
Cardiology Consult: Obed Aragon
Electrocardiogram (*1) IN AM
Reason for Study: Chest Pain
Cardiology Consult: Obed Aragon
05/15/24 08:00
Aspirin Chewable [Low Strength Aspirin] 81 mg PO DAILY
Dapagliflozin [Farxiga] 10 mg PO DAILY
Nadolol [Corgard] 10 mg PO DAILY
05/15/24 Lunch
NPO
Allow oral meds: Yes
Allow clear liquids: No
NPO with Ice Chips: No
Abnormal Lab Results
05/14/24
12:51
RBC 4.12 L 10^6/uL
(4.20-5.40)
MCH 32.0 H pg
(27.0-31.0)
MPV 10.8 H fL
(7.4-10.4)
Absolute Monos (auto) 0.7 H 10^3/uL
(0.1-0.6)
Monocytes % 9.4 H %
(1.7-9.3)
Carbon Dioxide 32 H mmol/L
(22-30)
BUN 21 H mg/dl
(7-17)
Calcium 10.5 H mg/dl
(8.4-10.2)
03/10/25 12:51
05/14/24 12:51
Vital Signs
Initial and Last Documented VS:
Initial Vital Signs
Temp Pulse Resp BP Pulse Ox
98.7 F 72 16 136/62 97
05/14/24 12:41 05/14/24 12:41 05/14/24 12:41 05/14/24 12:41 05/14/24 12:41
Last Documented Vital Signs
Temp Pulse Resp BP Pulse Ox
97.7 F 54 20 115/68 98
05/15/24 03:42 05/15/24 06:15 05/15/24 03:42 05/15/24 03:41 05/15/24 03:42
Sprinkler Fitter Apprentice consulted with Physician
Sprinkler Fitter Apprentice consulted with physician?: Yes
Name of Physician Consulted: myles
<Pam Ching, DO - Last Filed: 05/14/24 17:24>
Orders/Labs/Results
Orders:
Orders
05/14/24 12:39
Electrocardiogram (*1) Urgent
Reason for Study: Chest Pain
EKG- Treatment ONCE
05/14/24 12:51
Complete Blood Count/With Diff Urgent
Comprehensive Metabolic Panel Urgent
Troponin I Urgent
05/14/24 Dinner
Cholesterol Lowering
At Your Request: Full Participation
05/14/24 15:43
Chest [CR Chest - 2 Views ] Urgent
Comment:
Reason For Exam: cp
05/14/24 16:30
Electrocardiogram (*1) Stat
Reason for Study: Other
Other Reason for Exam: chest pain
EKG- Treatment ONCE
05/14/24 16:36
NT-proBNP Urgent
Comment: ADD ON
Troponin I Urgent
05/14/24 17:00
Add On- LAB Urgent
Comments:: add on to ED labs
Tests Added?: probnp
05/14/24 17:35
Aspirin Chewable [Low Strength Aspirin] 324 mg PO NOW STA
Pantoprazole [Protonix] 40 mg PO NOW STA
05/14/24 17:50
Admit/Transfer Patient As Directed
Co-Sign Provider:
Level of Care: Observation services
Assign to:: IVU
Physician / Group: zita diez
Diagnosis: acs
05/14/24 18:17
PRN Pain Medication Management As Directed
May give lesser potent ordered pain med per pt: Yes
preference::
Protocol:: Medication orders for pain may be administered in a
manner that supports deferring to patient preference
when the pt is:
- Requesting an ordered lesser potent pain medication.
Least to most potent pain medications are defined
as: acetaminophen < NSAID < tramadol < opioids
(morphine, oxycodone, hydromorphone).
- Requesting a lesser dose of the same medication IF
ORDERED.
- Requesting a less intrusive route of administration
if both routes are prescribed by the provider (PO <
IV).
05/14/24 20:30
Acetaminophen [Tylenol] 500 mg PO Q6HPRN PRN
05/14/24 20:30
Sequential Compression Device [Pneumatic Compression Sleeves] As Directed
Type: Knee high
DX Deep Vein Thrombosis Video Routine
05/14/24 22:00
Ezetimibe [Zetia] 10 mg PO HS
05/15/24 03:46
Troponin I IN AM
05/15/24 06:00
Echo Follow up Study W Dop IN AM
Reason for Study: look at , AI and EF
Cardiology Consult: Obed Aragon
Electrocardiogram (*1) IN AM
Reason for Study: Chest Pain
Cardiology Consult: Obed Aragon
05/15/24 08:00
Aspirin Chewable [Low Strength Aspirin] 81 mg PO DAILY
Dapagliflozin [Farxiga] 10 mg PO DAILY
Nadolol [Corgard] 10 mg PO DAILY
05/15/24 Lunch
NPO
Allow oral meds: Yes
Allow clear liquids: No
NPO with Ice Chips: No
Abnormal Lab Results
05/14/24
12:51
RBC 4.12 L 10^6/uL
(4.20-5.40)
MCH 32.0 H pg
(27.0-31.0)
MPV 10.8 H fL
(7.4-10.4)
Absolute Monos (auto) 0.7 H 10^3/uL
(0.1-0.6)
Monocytes % 9.4 H %
(1.7-9.3)
Carbon Dioxide 32 H mmol/L
(22-30)
BUN 21 H mg/dl
(7-17)
Calcium 10.5 H mg/dl
(8.4-10.2)
05/14/24 12:51
05/14/24 12:51
Vital Signs
Initial and Last Documented VS:
Initial Vital Signs
Temp Pulse Resp BP Pulse Ox
98.7 F 72 16 136/62 97
05/14/24 12:41 05/14/24 12:41 05/14/24 12:41 05/14/24 12:41 05/14/24 12:41
Last Documented Vital Signs
Temp Pulse Resp BP Pulse Ox
97.7 F 54 20 115/68 98
05/15/24 03:42 05/15/24 06:15 05/15/24 03:42 05/15/24 03:41 05/15/24 03:42
<HENRIK Child - Last Filed: 05/15/24 07:40>
MDM/Problems Addressed
Differential Diagnosis Includes:
Not limited to unstable angina, CHF
MDM/Problems Addressed:
Patient is a 78-year-old female who presented with exertional chest pain and some gradually worsening shortness of breath with exertion over the past 3 days. She is followed by Dr. Maxwell and has aortic valve replacement that is 15 years old.
She is on Eliquis for A-fib. She presents awake alert in no acute distress. however had episode mild chest dsicomfort with walking to and from x-ray that has subsided with rest. She has been feeling dyspnea on exertion for the past several
days which has worsened. She was sent in by cardiology.
She is in no acute distress her first troponin is negative however with exertional chest pain we will repeat second troponin.
With patient's concerning symptoms and history case reviewed with cardiology who will evaluate patient.
Echo reviewed from April 2024 does show moderate aortic regurgitation with stage II diastolic dysfunction suggestive of abnormal relaxation and increased filling pressures, normal left ventricular size wall thickness and systolic function no
regional wall abnormalities.
Chronic conditions affecting care:
Previous bovine aortic valve replacement, A-fib, CHF, CABG
<HENRIK Child - Last Filed: 05/15/24 07:40>
*Radiology
Radiology exam reviewed: radiology read reviewed
*Pulse Oximetry
Patient hypoxic: no
*EKG
Interpreted by ED Provider?: Yes
Interpretation: normal
Heart Rate: 61
Rate: normal
Rhythm: sinus
Ischemia: no ischemia
*Critical Care Note
Total Time (30-74mins, 75-104mins- exclusive of procedures): Not Applicable
<HENRIK Child - Last Filed: 05/15/24 07:40>
Patient Management
Discussion with other providers: Merry Go Round Operator (cardiology DR Greco )
ED Attending Note
<HENRIK Child - Last Filed: 05/15/24 07:40>
-
Portions of this chart may have been created with voice recognition software.� Occasional wrong word or��sound alike� substitutions may have occurred due to the inherent limitations of voice recognition software.
<Pam Ching DO - Last Filed: 05/14/24 17:24>
ED Attending Note
Patient seen and examined by attending physician: Yes
I performed the substantive portion of visit, reviewed & personally made and approve the management plan that is documented in note by myself or MARIA.: Yes
I performed a history and physical exam of patient and discussed management with resident, I reviewed resident's note and agree with documented findings and plan of care.: Yes
ED Attending Note:
78-year-old female with history of A-fib on Eliquis, diabetes, valve replacement presenting for exertional chest pain. Patient reports symptoms for the past 3 days. She called cardiology prior to arrival and was advised to come to the hospital.
Denies fever or cough. Does note some dyspnea with exertion as well. Vital signs on arrival are normal.
On exam patient resting comfortably, no acute distress or discomfort. Unremarkable cardiac and pulmonary exam. However, symptoms concerning for unstable angina. CHF is also consideration, dyspnea on exertion EKG obtained on arrival, sinus rhythm
without acute evidence of ischemia. Patient initially seen and evaluated by nurse practitioner. Labs unremarkable with negative troponin. Chest x-ray without pulmonary edema. Discussion with cardiology, plan for second troponin and cardiac
consultation. EKG repeated, no dynamic changes.
17:20 -patient seen by cardiology, recommending admission for cardiac catheterization and concern for CHF. Will discuss with hospitalist
Discharge Plan
Departure
Patient Disposition: Admit
Date of Disposition: 05/14/24
Time of Disposition: 17:34
Presentation/result/management discussed w/ accepting MD/DO: Hospitalist
Patient with high blood pressure during this ER visit?: No
Condition: Fair
Covid-19: Not Applicable
Discharge Problem:
Unstable angina, Exertional dyspnea
Interventions
Interventions:
*Risk Screen - Suicide Last Done: 05/14/24 12:41
*General Assessment Last Done: 05/14/24 12:41
*Neglect/Abuse Screening Last Done: 05/14/24 12:41
*ED- Fall Risk Assessment Last Done: 05/14/24 15:02
*ED COVID-19 Vaccine History Last Done: 05/14/24 15:02
*Nursing Disposition Last Done: 05/14/24 20:10
ED- Cardiac Assessment Last Done: 05/14/24 15:02
Discharge Date and Time
Discharge Date/Time: 05/14/24 20:10
--- NOTE | 2024-05-14 16:47 | CON.CAR ---
Addendum entered and electronically signed by Obed Aragon MD 05/14/24 17:51:
Attending addendum: Patient seen and examined. PA note reviewed and findings independently confirmed by me. Briefly, this is a 78 y/o female with a remote history of AVR at the [facility] for treatment of bicuspid aortic valve stenosis in 2007.
Her post operative course was complicated by RCA occlusion and need for RCA bypass with SVG and temporary RVAD support. She is chronically followed by Dr. Abril Maxwell and she has known structural deterioration of her bioprosthetic aortic
valve with moderate aortic insufficiency and a mean aortic valve gradient of 31 mmHg.
She presents to for evaluation of substernal chest discomfort over the past 3-days. Symptoms are more noticeable with exertion but are also present to some degree at rest. Troponin x 2 less than 0.012 ng/ml.
ECG with nonspecific ST-T changes
PE:
Gen: Awake, alert, oriented. NAD
HEENT: NC/AT, sclera are anicteric. Glasses are worn. Normal nose.
LUNGS: Clear in posterior lung field
CV: RRR with 2/6 crescendo-decrescendo USB / diastolic murmur.
EXT: No edema
NEURO: Gross non-focal
SKIN: No rash
RECOMMENDATION
-Discussed with Dr. Maxwell, Ms Knowles is approaching the point where she may need TAVR consideration Barrett.
-Will likely proceed with left heart catheterization tomorrow afternoon if left radial is usable for vascular access. If not may consider femoral or delay an additional 24-hour
-Check repeat Troponin
-Hold Eliquis
-No heparin for now
-Aspirin 324 mg x 1 then 81 mg daily
-Would repeat limited echocardiogram to assess EF and valve function
Original Note:
Consultation
Consultation Request
Date/Time Consultation Requested: 05/14/2024
Date/Time Consultation Performed: 05/14/2024
Requesting Provider: HENRIK Lofton
Performing Provider: Daniella Collado PA-C for Dr. Grupo Greco
Reason for Consultation: Chest pain, palpitations, shortness of breath
Medical History
-
History of Present Illness:
Patient came to ER today with symptoms of chest pressure for the last 3 days and is being admitted with [place] and cardiology has been consulted. Patient called the cardiology office this morning to report chest pressure over the last 3 days
initially noticed with any type of activity and then progressing to episodes of chest pressure at rest. Chest pressure is described as substernal and will last for hours at a time and then resolve spontaneously without specific intervention and
then recur with any type of activity. It is unlike any discomfort she has had before. Patient has a history of CABG with SVG to RCA but this was an intraoperative complication at the time of her surgical AVR at [place] back in 2007. At that time
patient had RV failure and required temporary RVAD support. By the most recent echo as noted above the patient now has moderate aortic regurgitation. Patient was seen in the past by EP at [facility] and had PVI with them and also started following
with a CT surgeon there, Dr. Gale, for the possibility of eventual redo surgical AVR. Patient denies any orthopnea. Patient denies palpitations.
PMH:
CAD s/p CABG with SVG to RCA
Intraoperative complication requiring temporary RVAD assistance at time of AVR 2007
s/p tissue AVR at [facility] 2007
chronic HFpEF
Paroxysmal atrial fibrillation
s/p PVI at [facility]
Paroxysmal atrial flutter
s/p atrial flutter ablation 04/23/2017
h/o long QT syndrome seen on exercise only during previous stress test, intolerant to AAD, diagnosed elsewhere in the past
h/o PE
Pulmonary nodule
History of Lyme disease
History of Guillain-Valenzuela�
IBS
Past Medical History
Past Medical History: Other (See HPI)
Past Surgical History: Cardiac (Aortic valve replacement and CABG x 1 SVG to RCA 2007, PVI ablation), Gynecological (D and E), Orthopedic (Left wrist surgery with plates and screws) and Tonsilectomy
Social History
Tobacco: Former Smoker
Alcohol: Occasional
Drug: None
Personal:
Living: With Family
Family History
Family History: Cancer (Father had liver cancer mother had breast cancer, sister colon cancer)
Allergies / Home Medications
Allergy/AdvReac Type Severity Reaction Status Date / Time
amiodarone [Amiodarone] Allergy Anaphylaxis Verified 05/14/24 12:43
hydrocodone bitartrate Allergy Vomiting Verified 05/14/24 12:43
[From Vicodin]
oxycodone HCl [From Percocet] Allergy Vomiting Verified 05/14/24 12:43
simvastatin [From Zocor] Allergy Hives Verified 05/14/24 12:43
�Medication �Instructions �Recorded �Confirmed �Type
apixaban 5 mg tablet (Eliquis) 5 mg PO BID #60 tabs 04/25/17 02/27/24 Rx
acetaminophen 500 mg tablet 500 mg PO Q6HPRN PRN mild 02/27/24 02/27/24 History
(Tylenol Extra Strength) pain/fever
empagliflozin 10 mg tablet 10 mg PO DAILY 02/27/24 02/27/24 History
(Jardiance)
ezetimibe 10 mg tablet 10 mg PO HS 02/27/24 02/27/24 History
nadolol 20 mg tablet 10 mg PO DAILY 02/27/24 02/27/24 History
hydrocortisone acetate 25 mg 25 mg IA HS #12 ea 02/29/24 Rx
rectal suppository
Review of Systems
-
History Source: Patient
All other systems: Negative unless noted
Physical Exam
Vital Signs
Temp Pulse Resp BP Pulse Ox
98.7 F 65 31 121/83 98
05/14/24 12:41 05/14/24 16:00 05/14/24 16:00 05/14/24 16:00 05/14/24 16:00
GEN: NAD. AAOx3
HEENT: EOMI, MMM
LUNGS: RA. CTA B/L
CV: SR on tele. Reg, S1/S2, 3/6 BSM
ABD: soft, BS+, NT, ND
EXT: +1 right greater than left LE edema. B/L support stockings in place
NEURO: Gross non-focal
SKIN: No rash
Lab Results
05/14/24 12:51
05/14/24 12:51
Troponin I < 0.012 ng/ml 05/14/24 12:51
Impression / Plan
-
PCP: Dr. Arndt
Card: Dr. Abril Maxwell
CT surgeon: Dr. Gale at [facility]
Impression:
Admitted with [facility] 05/14/24
Chest pressure
CAD s/p CABG with SVG to RCA
Intraoperative complication requiring temporary RVAD assistance at time of AVR 2007
s/p tissue AVR at [facility] 2007
chronic HFpEF
Paroxysmal atrial fibrillation
s/p PVI at [facility]
Paroxysmal atrial flutter
s/p atrial flutter ablation 04/23/2017
h/o long QT syndrome seen on exercise only during previous stress test, intolerant to AAD, diagnosed elsewhere in the past
h/o PE
Pulmonary nodule
History of Lyme disease
History of Guillain-Valenzuela�
IBS
Echo 04/10/2024: EF 72%, stage II diastolic dysfunction, mild MR, #23 bovine bioprosthetic AVR peak/mean 50/31 mmHg, moderate aortic regurgitation pressure half-time 455 ms, mild to moderate TR with PAP 51 mmHg, no pericardial effusion
Plan:
-Patient came to ER today with symptoms of chest pressure for the last 3 days and is being admitted with [facility] and cardiology has been consulted. Patient called the cardiology office this morning to report chest pressure over the last 3 days
initially noticed with any type of activity and then progressing to episodes of chest pressure at rest. Chest pressure is described as substernal and will last for hours at a time and then resolve spontaneously without specific intervention and
then recur with any type of activity. It is unlike any discomfort she has had before. Patient has a history of CABG with SVG to RCA but this was an intraoperative complication at the time of her surgical AVR at [facility] in 2007. At that time
patient had RV failure and required temporary RVAD support. By the most recent echo as noted above the patient now has moderate aortic regurgitation. Patient was seen in the past by EP at [facility] and had PVI with them and also started following
with a CT surgeon there, Dr. Gale, for the possibility of eventual redo surgical AVR. Patient denies any orthopnea. Patient denies palpitations.
-ECG reviewed by me is SR without acute ST changes. Telemetry reviewed by me is SR
-Patient with symptoms of USA and is agreeable to admission for cardiac catheterization. NPO after breakfast tomorrow. Can have a light breakfast in AM
-Hold Eliquis
-Trend troponin, initial troponin is undetectable
-Last echo from 04/10/24 showed moderate aortic regurgitation of her previously placed bovine
-Recheck echo f/u study in AM to look at , AI and EF
-Follow on tele for recurrence of atrial arrhythmia, but no reports of symptomatic palpitations
-
[2024-05-14 17:15] LABS: Troponin I < 0.012 ng/ml
[2024-05-14 17:32] LABS: NT-proBNP 1130 pg/ml
--- NOTE | 2024-05-14 17:38 | HPS.HSE ---
Family Physician
-
Family Physician: Saba Arndt
Chief Complaint
-
Chest pain x 3 days
History of Present Illness
78-year-old female complaining of chest pressure over the last 3 days with activity but then started to have while at rest. She does report it did radiate to her left arm she called his cardiology office this a.m. who advised him to come to ER for
evaluation. 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 She had most recent echo showing moderate aortic
regurgitation. He has been following with an EP doctor at [place] had PVI with them and has plans for eventual redo of surgical AVR by Dr. Gale CT surgeon at [place]. He was seen by cardiology in the ER today with concern for CHF and plan to do
cardiac cath in a.m. he has past medical history of CABG�SVG to RCA with complication requiring RVAD support [facility] 2007, paroxysmal A-fib,/flutter former smoker, PE, known pulmonary nodule, Lyme disease, Phil Valenzuela�, IBS, GI bleed,
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
Medical History
Past Medical History
Past Medical History: Reports Other
Additional Past Medical History:
CAD/CABG SVG to RCA
AVR replacement 2007
Chronic A-fib status post PVI ablation 2016 2017
Hyperlipidemia
Pulmonary nodule
Pancreatic cyst
PE
Chronic heart failure
Guillain-Valenzuela�
Restrictive lung disease
LYMEDisease
Diverticulosis
Past Surgical History: Reports Other
Additional Past Surgical History:
Tonsillectomy
Cholecystectomy
Left wrist ORIF
CABG with SVG to RCA but this was an intraoperative complication at the time of her surgical AVR at [facility] back in 2007. At that time patient had RV failure and required temporary RVAD support
[facility]ortic valve [facility]p atrial flutter ablation 04/23/2017 HX long QT syndrome seen on exercise only during previous stress test, intolerant to AAD, diagnosed elsewhere in the past per cardiology notes
Social History
Tobacco: Former Smoker
Alcohol: Occasional
Drug: None
Personal: Single
Living: Alone
Employment: Retired
Family History
Family History: Other (Mother breast CA, father age 80s from sepsis, son bicuspid aortic valve, daughter multiple myeloma age 44)
Allergies / Home Medications
Allergies reflects when Allergies were last updated in [email or web address].
Home Medications with original date entered in [email or web address]
Allergy/Medication List:
Allergies
Allergy/AdvReac Type Severity Reaction Status Date / Time
amiodarone [Amiodarone] Allergy Anaphylaxis Verified 05/14/24 12:43
hydrocodone bitartrate Allergy Vomiting Verified 05/14/24 12:43
[From Vicodin]
oxycodone HCl [From Percocet] Allergy Vomiting Verified 05/14/24 12:43
simvastatin [From Zocor] Allergy Hives Verified 05/14/24 12:43
Home Medications
apixaban 5 mg tablet (Eliquis) 5 mg PO BID #60 tabs 04/25/17
acetaminophen 500 mg tablet (Tylenol Extra Strength) 500 mg PO Q6HPRN PRN mild pain/fever 02/27/24
empagliflozin 10 mg tablet (Jardiance) 10 mg PO DAILY 02/27/24
ezetimibe 10 mg tablet 10 mg PO HS 02/27/24
nadolol 20 mg tablet 10 mg PO DAILY 02/27/24
hydrocortisone acetate 25 mg rectal suppository 25 mg NJ HS #12 ea 02/29/24
Review of Systems
-
History Source: Patient
A 12 point ROS was completed and negative except as noted: Yes
Constitutional: Denies Fever
EENT: Denies Sore Throat or Runny Nose
Respiratory: Denies Cough or Trouble Breathing
Cardiac: Reports Chest Pain; Denies Diaphoresis, Palpitations or Syncope
Abdomen/GI: Denies Abdominal Pain, Nausea, Vomiting, Diarrhea or Constipated
: Denies Dysuria, Frequency, Flank Pain, Incontinence or Difficulty Voiding
Musculoskeletal: Denies Joint Pain or Edema
Skin: Denies Itching or Rash
Neurological: Denies Dizzy, Headache or Weakness
Endocrine: Reports No Symptoms
Hematologic/Lymphatic: Reports No Symptoms
Psych: Reports Calm
Physical Exam
Vital Signs
Vital Signs
Temp Pulse Resp BP Pulse Ox
98.7 F 65 31 121/83 98
05/14/24 12:41 05/14/24 16:00 05/14/24 16:00 05/14/24 16:00 05/14/24 16:00
Physical Exam
General: Comfortable and Conversant; No Pain, Fever or Chills
HEENT: NormoCephalic, Anicteric, PERRLA, [place] Conjunctivae and No Ptosis
Respiratory: Clear; No Wheezes, Rales or Rhonchi
Cardiac: S1/S2 and Regular Rhythm; No Murmur, Gallop or Peripheral Edema
Breast: Deferred by me
GI: Soft, Non Tender, Non Distended, Normal Bowel Sounds and No Hepatosplenomegaly
Rectal: Deferred by Provider
Genito-urinary: Deferred by me
Musculoskeletal: No Clubbing, No Cyanosis and No Edema
Skin: Warm and Dry; No Rash
Neuro: AO x 3, No Motor Deficits, Nonfocal/grossly intact, Cranial Nerves Intact and No Sensory Deficits; No Slurred Speech, Facial Droop, Tremors or Sedated
Psych: Calm
Laboratory Results
-
05/14/24 12:51
05/14/24 12:51
Laboratory Results
Total Bilirubin 1.3 mg/dl (0.2-1.3) 05/14/24 12:51
AST 27 U/L (14-36) 05/14/24 12:51
ALT 21 U/L (0-35) 05/14/24 12:51
Alkaline Phosphatase 75 U/L (38-126) 05/14/24 12:51
Troponin I < 0.012 ng/ml 05/14/24 16:36
Data Reviewed
-
Lab Data: Labs Reviewed by me
Impression/Plan
-
Impression/plan:
Admit to IVU
Chest pain concern USA
-N.p.o. after midnight
-Cholesterol-lowering diet tonight
-Plan for cardiac cath in a.m.
-Aspirin 324 mg given in ER continue aspirin 81 mg daily
-Start Protonix 40 mg now and daily
-Check 2D echo
-Hold current Eliquis no need for IV heparin per Dr. Abril Maxwell
#CAD s/p CABG with SVG to RCA
#Intraoperative complication requiring temporary RVAD assistance at time of AVR 2007s/p tissue AVR at [place] 2007
-Continue Zetia 10 mg at bedtime, nadolol 10 mg p.o. daily with hold parameters
#Chronic HFpEF
-I/O, daily weights
#Paroxysmal atrial fibrillation
[facility]
-s/p atrial flutter ablation 04/23/2017 HX long QT syndrome seen on exercise only during previous stress test, intolerant to AAD, diagnosed elsewhere in the past per cardiology notes
Hx prolonged QTc
EKG junctional rhythm 64 bpm, QTc 435 MS
#HTN
-BP 121/83
#HLD
-Check lipid profile
Continue Zetia 10 mg at bedtime
#Former smoker
-Smoked as a teen
#Known pulmonary nodule
-Follows with pulmonary outpatient
#PE Hx
-Patient on Eliquis for A-fib
Other PMH:
History of Lyme disease
History of Guillain-Valenzuela�
IBS
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
DVT prophylaxis
Patient took Eliquis at 730 this a.m. 05/14/2024 will hold further dose until after heart catheterization per cardiology recommendations
Full code
[2024-05-14] MEDS: LOW STRENGTH ASPIRIN 324 MG PO (17:59)
[2024-05-14] MEDS: PROTONIX 40 MG PO (17:59)
--- NOTE | 2024-05-14 18:18 | W.PN.UPDATE ---
Update Note
Progress Note Update
78 female history of atrial fibrillation s/p PVI ablation, aortic valve disease s/p bioprosthetic replacement complicated by VT/RCA occlusion and need for RCA bypass with SVG and ECMO 16 years ago, a flutter HLD, history of long QT, congestive heart
failure/HFpEF
Presents with a 3-day history of chest pressure radiating to the left arm exertional dyspnea and some symptoms also occur at rest
Chest pressure
CAD s/p CABG with SVG to RCA
Chronic HFpEF
Paroxysmal atrial fibrillation
Paroxysmal atrial flutter
History of long QT
History of PE
Pulmonary nodule
History of Lyme disease
History of acute bradycardia
IBS
Cardiology recommends admission for cardiac catheterization. N.p.o. after breakfast. Hold Eliquis. No heparin. Trend troponin. Recheck echocardiogram in the a.m.
-Monitor on telemetry as troponin elevation repeat EKG, chest pain repeat EKG
History of A-fib currently in sinus s/p PVI ablation
-Hold Eliquis
Hyperlipidemia
-Continue Zetia
Chronic HFpEF
Continue SGLT2 inhibitor
Not on MRA nor diuretic
[2024-05-14 19:00] VITALS: BP 138/57
[2024-05-14 20:20] VITALS: BP 146/65
[2024-05-14 20:25] VITALS: BMI 26.7
[2024-05-14 21:10] VITALS: BMI 26.7
[2024-05-14] MEDS: ZETIA 10 MG PO (21:12)
[2024-05-14 22:52] VITALS: BP 121/57
--- NOTE | 2024-05-14 23:51 | PTCARENOTE ---
Pt admitted to room 2255 with chest pain. On arrival pt. denies CP or SOB. VSS NSR on monitor. Pt oriented to the room, call trinh in reach. Pt independent in the room
[2024-05-15] VITALS (11 sets, daily range): BP systolic 94–139; BP diastolic 49–69; BMI 26.3
[2024-05-15 04:36] LABS: Troponin I < 0.012 ng/ml
[2024-05-15 05:15] LABS: Hepatitis C Antibody Negative (Negative)
[2024-05-15] MEDS: FARXIGA 10 MG PO (07:26)
[2024-05-15] MEDS: CORGARD 10 MG PO (07:26)
[2024-05-15] MEDS: LOW STRENGTH ASPIRIN 81 MG PO (07:26)
--- NOTE | 2024-05-15 11:21 | CM ---
Chart reviewed. Patient is independent of ADLS, lives alone in a 2 STH, 8 FUAD, 0 DME. Plan is for the patient to return home. CM to follow
--- NOTE | 2024-05-15 13:21 | W.PN.HOSP.TC ---
Today's Communication/Plan
-
LHC
2d echo
Assessment / Plan
Assessment / Plan
NAD
Scleral Anicteric
MMM
No JVD
CTABL
RRR, 2/6 crescendo-decrescendo
Soft, NT, ND, BS+
Warm, Dry
AAOx3
Chest pain
Continue n.p.o.
LHC today
Cardiology following
2D echocardiogram
ASA and Zetia
Hold Eliquis/IV heparin drip per cardiology at this time
CAD s/p CABG with SVG to RCA
Continue Zetia nadolol
Chronic HFpEF, euvolemic
No Lasix
On Jardiance
No MRA
Hyperlipidemia
Continue Zetia
Known pulmonary nodule
Follows with outpatient pulmonary
Afib Parox, S/p PVI Ablation
-Continue Eliquis
PE Hx
Anticipated Discharge: 24 - 48 hours
Subjective/Interval History
-
Date of Service: May 15, 2024
Seen and examined. No new complaints. No acute overnight events
Objective Data
-
Vital Signs:
Vital Signs
Temp Pulse Resp BP Pulse Ox
98.2 F 56 18 127/56 97
05/15/24 07:56 05/15/24 07:39 05/15/24 07:56 05/15/24 07:39 05/15/24 08:00
I&O
05/14/24 05/15/24 05/16/24
06:59 06:59 06:59
Intake Total 350 / 350
Balance 350 / 350
--- NOTE | 2024-05-15 14:22 | ITS.CL.CATH ---
Castings Drafter - Catheterization
Cardiac Catheterization
Procedure Report:
LEFT HEART CATHETERIZATION
Date of Procedure: May 15, 2024
Referring: Dr. Abril Maxwell
PROCEDURES:
1. Left heart catheterization with coronary angiography
2. Hemodynamic assessment of aortic valve gradient
INDICATION: This is a 78-year-old female who underwent surgical aortic valve replacement in 2007. Her postoperative course was complicated by occlusion of the right coronary artery requiring placement of a SVG-distal RCA and RVAD support. She has
developed moderate aortic valve stenosis/insufficiency with a mean aortic valve gradient of 31 mmHg. She presented to [facility] on 05/14/2024 with complaints of substernal chest pressure with physical exertion. She was admitted with
unstable anginal symptoms and serial troponin levels were undetectable. She is now referred for left heart catheterization and coronary angiography
ACCESS: Right radial artery, 6 Cambodian sheath
HEMODYNAMICS : (mmHg)
AO (s/d) : 133/58
LV (s/d) : 160/19
LVEDP : 29
AORTIC VALVE:
Mean Gradient: 33 mmHg
CORONARY FINDINGS
DOMINANCE: Right
LEFT MAIN: Normal
LEFT ANTERIOR DESCENDING: The LAD arises normally from the left main and runs in the anterior interventricular groove.. The LAD tapers to a small caliber vessel distally and terminates prior to wrapping around the apex. The LAD is widely patent
CIRCUMFLEX: The circumflex is a large-caliber nondominant vessel supplying several small to medium caliber obtuse marginal branches and terminating in a large posterolateral branch.
RIGHT CORONARY ARTERY: The origin of the right coronary artery is near the sewing cuff of the bioprosthetic surgical valve. There is a large caliber widely patent saphenous vein graft to the mid-distal RCA which fills antegrade and retrograde back
to the RCA origin.
GRAFT ANGIOGRAPHY:
1. SVG-RCA: The saphenous vein graft to the mid-distal RCA remains widely patent with anterograde and retrograde filling of the RCA. The saphenous vein graft and [place] RCA are widely patent and filled back to the origin of the RCA.
SEDATION: 45 minutes of procedural sedation was utilized. An independent medical care administrator was present to assist with and help manage the patient's level of consciousness and physiologic status.
RADIATION SUMMARY: Fluoro Time (min): 6.7, Dose (mGy): 282.4, DAP (Gy.cm2) : 26.3
Closure Device: TR band
CONCLUSIONS
1. Moderate aortic stenosis of bioprosthetic aortic valve
2. Stable coronary anatomy with patent [id number] RCA
RECOMMENDATIONS
1. Continue medical management
2. Follow-up with Dr. Abril Maxwell
Copy to: Dr. Abril Maxwell
--- NOTE | 2024-05-15 16:00 | PTCARENOTE ---
Pt received this am with no c/o of chest pain or sob. SB - SR, rate in the 50's to 60's. Pt received post cath at 1430. Right rad band intact and WNL.
[2024-05-15] MEDS: LASIX 40 MG IV (17:47)
[2024-05-15] MEDS: ZETIA 10 MG PO (21:00)
[2024-05-16 04:45] LABS: Hematocrit 40.8 % (37.0-47.0); Hemoglobin 13.6 g/dL (12.0-16.0); Mean Corp Hgb Conc. 33.3 g/dL (33.0-37.0); Mean Corpuscular Hgb 31.6 pg (27.0-31.0); Mean Corpuscular Volume 94.9 fL (81.0-99.0); Mean Platelet Volume 11.1 fL (7.4-10.4); Platelet Count 227 10^3/uL (130-400); Red Cell Dist. Width 12.4 % (11.5-14.5); White Blood Cell Count 7.4 10^3/uL (4.8-10.8)
[2024-05-16 05:12] LABS: Blood Urea Nitrogen 25 mg/dl (7-17); Calcium 10.2 mg/dl (8.4-10.2); Carbon Dioxide 29 mmol/L (22-30); Chloride 101 mmol/L (98-107); Estimated Creatinine Clearance 49 ml/min; Glucose 92 mg/dl (70-99); Potassium 4.2 mmol/L (3.5-5.1); Sodium 137 mmol/L (135-145); eGFR > 60.00
--- NOTE | 2024-05-16 08:16 | W.PN.CARDCBS ---
Addendum entered and electronically signed by Abril Maxwell MD 05/16/24 09:57:
I saw and examined the patient.
The Coconut Candy Maker's note was reviewed and I agree with the note.
Comment: She is feeling better today. Only minimal upper chest discomfort this morning. She is my outpatient and we have been closely watching her aortic valve which has been degenerating with both aortic valve stenosis and aortic valve
insufficiency. She is now symptomatic. She was not symptomatic prior. She underwent left heart catheterization without obstructive coronary disease. As noted in 2007 she had a very dominguez postoperative course ([facility] ) with
bioprosthetic aortic valve replacement and need for RVAD support with redo open heart surgery with SVG to mechanically occluded RCA. Plan given family lives in [facility] is likely to have redo surgery in [place]. She has not seen surgeon yet
but has upcoming electrophysiology appointment. She is going to reach out to cardiology in [place]. She however now is also considering given her excellent care at [place] assessment at [place]. She is going to discuss with her family and
let me know if she would like to proceed. She asked about TAVR and we discussed at great length. She would like to be considered for both TAVR or SAVR. TAVR is appealing to her given complex course last hospital stay.
Volume overload noted likely contributing to symptoms. She has diuresed.
- We will discharge her on Lasix 20 mg daily. Follow-up outpatient visit. She has volume overload secondary to progressive aortic valve disease with at least moderate aortic valve stenosis and at least moderate to severe likely severe aortic valve
insufficiency.
-All questions answered. She will call me on Tuesday if she would like to proceed with TAVR assessment/SAVR assessment at [place].
-She may proceed with mild, mild to moderate exercise.
-She will make appointment with dental. She is due.
Exam appears fairly euvolemic with murmur both of aortic stenosis and aortic valve insufficiency. Lungs are clear. No edema noted.
Telemetry reviewed and stable.
Original Note:
Today's Communication / Plan
-
New to Lasix 20 mg daily, e-scribed by me
Will arrange for a 1 week HF appt in the office
52 min in face to face and coordination of care
Impression / Plan
-
PCP: Dr. Arndt
Card: Dr. Abril Maxwell
CT surgeon: Dr. Gale at [place]
Impression:
Admitted with USA 05/14/24
Chest pressure
CAD s/p CABG with SVG to RCA
Intraoperative complication requiring temporary RVAD assistance at time of AVR 2007
s/p tissue AVR at [place] 2007
chronic HFpEF
Paroxysmal atrial fibrillation
s/p PVI at [facility]
Paroxysmal atrial flutter
s/p atrial flutter ablation 04/23/2017
h/o long QT syndrome seen on exercise only during previous stress test, intolerant to AAD, diagnosed elsewhere in the past
h/o PE
Pulmonary nodule
History of Lyme disease
History of Guillain-Valenzuela�
IBS
Acute HFpEF
Echo 04/10/2024: EF 72%, stage II diastolic dysfunction, mild MR, #23 bovine bioprosthetic AVR peak/mean 50/31 mmHg, moderate aortic regurgitation pressure half-time 455 ms, mild to moderate TR with PAP 51 mmHg, no pericardial effusion
Echo 05/15/2024: Limited follow-up study, EF 55%, #23 bioprosthetic AVR with mean gradient 24 mmHg, there is moderate to moderate to severe aortic insufficiency and the pressure half-time across the valve 641 ms may underestimate the severity of
aortic insufficiency
Plan:
-Troponin serial undetectable. Cardiac cath 05/15/24 showed widely patent SVG to RCA and otherwise stable nonobstructive CAD.
-AVR by echo with evidence of at least moderate if not moderate to severe aortic insufficiency and the pressure half-time of 641 ms may be underestimating the severity of aortic insufficiency. Mean gradient across the aortic valve at time of cath
05/15/2024 was 33 mmHg
-Patient had initial tissue AVR at [place] in 2007 complicated by urgent CABG for SVG to RCA requiring temporary RVAD assistance at that time. Subsequently patient had procedures at [place] in [place] including a PVI and had previously stated that she
would have eventual redo AVR at [place] as well, but is now contemplating surgery locally following this hospitalization
-Eliquis held for cath and has now been resumed
-LVEDP was 29 and patient was given Lasix 40 mg IV x1 on 05/15/24 afternoon. Weight is down at least 2 lbs overnight. Starting Lasix 20 mg PO daily on 05/16/24.
-Patient with h/o pAfib/flutter and has been SR this admission. Tele reviewed by me 05/16/24 shows SR
-Likely d/c to home 05/16/24
HPI: Patient came to ER today with symptoms of chest pressure for the last 3 days and is being admitted with [facility] and cardiology has been consulted. Patient called the cardiology office this morning to report chest pressure over the last 3 days
initially noticed with any type of activity and then progressing to episodes of chest pressure at rest. Chest pressure is described as substernal and will last for hours at a time and then resolve spontaneously without specific intervention and
then recur with any type of activity. It is unlike any discomfort she has had before. Patient has a history of CABG with SVG to RCA but this was an intraoperative complication at the time of her surgical AVR at [place] back in 2007. At that time
patient had RV failure and required temporary RVAD support. By the most recent echo as noted above the patient now has moderate aortic regurgitation. Patient was seen in the past by EP at [place] and had PVI with them and also started following
with a CT surgeon there, Dr. Gale, for the possibility of eventual redo surgical AVR. Patient denies any orthopnea. Patient denies palpitations.
Progress Note - Forensic Identification Specialist
Subjective
Date of Service: May 16, 2024
Feels well, no CP
Objective
Labs:
05/16/24 04:28
05/16/24 04:28
Labs
Hgb 13.6 g/dL (12.0-16.0) 05/16/24 04:28
Hct 40.8 % (37.0-47.0) 05/16/24 04:28
Plt Count 227 10^3/uL (130-400) 05/16/24 04:28
Sodium 137 mmol/L (135-145) 05/16/24 04:28
Potassium 4.2 mmol/L (3.5-5.1) 05/16/24 04:28
BUN 25 mg/dl (7-17) H 05/16/24 04:28
Creatinine 0.8 mg/dL (0.6-1.0) 05/16/24 04:28
Glucose 92 mg/dl (70-99) 05/16/24 04:28
Troponins
05/14/24 05/14/24 05/15/24
12:51 16:36 03:46
Troponin I < 0.012 < 0.012 < 0.012
Vital Signs and I&O:
Vital Signs
Temp Pulse Resp BP Pulse Ox
98.0 F 61 18 100/55 97
05/16/24 04:19 05/15/24 23:45 05/16/24 04:19 05/15/24 22:21 05/16/24 04:19
Vital Signs
Temp Pulse Resp BP Pulse Ox
98.0 F 61 18 100/55 97
05/16/24 04:19 05/15/24 23:45 05/16/24 04:19 05/15/24 22:21 05/16/24 04:19
Intake & Output
05/14/24 05/15/24 05/16/24 05/17/24
06:59 06:59 06:59 06:59
Intake Total 350 / 350 300 / 300
Balance 350 / 350 300 / 300
Physical Exam
Physical Exam
GEN: NAD. AAOx3
HEENT: EOMI, MMM
LUNGS: RA. CTA B/L
CV: SR on tele. Reg, S1/S2, 3/6 BSM
ABD: soft, BS+, NT, ND
EXT: No edema
NEURO: Gross non-focal
SKIN: No rash
[2024-05-16] MEDS: ELIQUIS 5 MG PO (08:20)
[2024-05-16] MEDS: FARXIGA 10 MG PO (08:20)
[2024-05-16] MEDS: LASIX 40 MG PO (08:21)
[2024-05-16] MEDS: CORGARD 10 MG PO (08:21)
[2024-05-16 08:49] VITALS: BMI 25.8
--- NOTE | 2024-05-16 11:15 | W.PN.HOSP.TC ---
Today's Communication/Plan
-
possible d/c
Assessment / Plan
Assessment / Plan
78yo F with PMHX of bioprosthetic AV, CAD s/p CABG, HFpEF, paroxysmal Afib/a.flutter, Hx of PE, long QT, Hx of pulm nodule, IBS, Hx of Guillain-[place], IBS came with chest pressure started 3 days before admisison. Had cardiac cath on 05/15/24 with
patent SVG to RCA and non-obstructive CAD. Echo with progressive AI due to degenerativw AV. Cardiology recommended to start process for valve replacement. Patient is willing to reach to cardiothoracic Sx in [facility] vs continue tcare in , since also
will need need for RVAD support with redo open heart surgery with SVG to mechanically occluded RCA. Patient to discuss with family. Also started on Lasix 2/2 acute CHF. Cardiology will follow as outpatient: patient to call them on 05/21/24.
A/P:
#Chest pain with concern for UA
#CAD s/p CABG
#Acute on chronic HFpEF
Trop WNL
s/p cath
PO FUrosemide 20mg daily started
#Bioprosthetic AV with degeneration
outpatient f/u with card
#IBS
#HLD
#PAroxysmal Afib/flutter
#Hx of PE
cont home meds
#Known pulmonary nodule
already follows with pulm for monitoring
DVT ppx Eliquis
Full code
I have spent at least 59min reviewing chart, test results, communication with consultants and direct patient care
Anticipated Discharge: Within 24 hours
Subjective/Interval History
-
Date of Service: May 16, 2024
Objective Data
-
Labs:
Laboratory Results
05/16/24
04:28
WBC 7.4
Hgb 13.6
Hct 40.8
Plt Count 227
Sodium 137
Potassium 4.2
Chloride 101
Carbon Dioxide 29
BUN 25 H
Creatinine 0.8
Glucose 92
Calcium 10.2
Vital Signs:
Vital Signs
Temp Pulse Resp BP Pulse Ox
98.0 F 61 18 100/55 97
05/16/24 04:19 05/15/24 23:45 05/16/24 04:19 05/15/24 22:21 05/16/24 08:00
I&O
05/15/24 05/16/24 05/17/24
06:59 06:59 06:59
Intake Total 350 / 350 300 / 300
Balance 350 / 350 300 / 300
Review of Systems
-
History Source: Patient
All other systems: Reviewed and negative
Physical Exam
-
General: No Apparent Distress
HEENT: Normocephalic
Cardiac: Regular Rhythm
GI: Soft
Musculoskeletal: No Clubbing, No Cyanosis and No Edema
Neuro: Awake, Alert, Oriented and AO x 3
Psych: Calm
--- NOTE | 2024-05-16 11:20 | W.DCSUMMARY ---
Discharge Summary
Discharge Data
Date of Admission: 05/14/24
Date of Discharge: 05/16/24
-
Pending Results: No
Hospital Course
78yo F with PMHX of bioprosthetic AV, CAD s/p CABG, HFpEF, paroxysmal Afib/a.flutter, Hx of PE, long QT, Hx of pulm nodule, IBS, Hx of Guillain-Canton, IBS came with chest pressure started 3 days before admisison. Had cardiac cath on 05/15/24 with
patent SVG to RCA and non-obstructive CAD. Echo with progressive AI due to degenerativw AV. Cardiology recommended to start process for valve replacement. Patient is willing to reach to cardiothoracic Sx in [facility] vs continue tcare in , since also
will need need for RVAD support with redo open heart surgery with SVG to mechanically occluded RCA. Patient to discuss with family. Also started on Lasix 2/2 acute CHF. Cardiology will follow as outpatient: patient to call them on 05/21/24.
I have spent at least 59min reviewing chart, test results, communication with consultants and direct patient care
Patient was managed for:
#Chest pain with concern for UA
#CAD s/p CABG
#Acute on chronic HFpEF
#Bioprosthetic AV with degeneration
#IBS
#HLD
#PAroxysmal Afib/flutter
#Hx of PE
#Known pulmonary nodule
Discharge Plan
-
Patient Disposition: Home (Routine Discharge)
Discharge Diagnosis/Procedures: Cardiac cath
Diet: 2 Gram Sodium and Restrict fluids to 64 oz
Activity: Other activity
Driving Restrictions: No driving for 24 hours
Bathing Restrictions: OK to Shower
Specialty Instructions: Weigh Daily- Call MD for wt gain/loss 3 lbs overnight/5 lbs in 1 week
Stand Alone Forms: DC Instructions- Cath/EP Lab
Referrals:
Susie Guillen PA-C [Specified Professional Personl] - 06/05/24 12:40 pm (The cardiology office is working on an appointment for you to be seen in the next week, which will be sooner than the appointment that is currently scheduled for 06/05/2024, and
we will call you with this updated appointment. We also gave you a disc with your cardiac catheterization films that you can take with you to see the heart surgeon in [place].)
Saba Arndt MD [Family Provider] -
Additional Discharge Medication Instructions: -Start taking Lasix (furosemide) 20 mg once a day to help maintain fluid balance leading up to valve intervention
Prescriptions:
New
furosemide [Lasix] 20 mg tablet
20 mg PO DAILY Qty: 30 11RF
Continued
Eliquis 5 MG tablet
5 mg PO BID Qty: 60 3RF
nadolol 20 mg Tablet
10 mg PO DAILY
ezetimibe 10 mg Tablet
10 mg PO HS
Jardiance 10 mg Tablet
10 mg PO DAILY
Discharge Orders:
Discharge Patient (As Directed); Ordered 05/16/24
Ordered By: Erlin Kaur
Care Plan Goals
Care Plan Goals:
Problem: Readiness for enhanced knowledge related to diagnosis and treatment plan
Goal: Understand your diagnosis and treatment plan needs, including medications if applicable.
Instructions: Know your diagnosis, underlying causes and treatment plan options, including medications if applicable. Consult with your health care team to learn about your diagnosis and treatment plan, including medications if applicable.
Discharge Date and Time
Print Language: IRANIAN
--- NOTE | 2024-05-16 14:37 | CM ---
CM following for DC planning needs.
Met w/ patient at bedside. Pt. is planning for DC today.
Reviewed DC needs; patient has no needs at this time.
DC plan is for home, no needs.
== END 2024-05-16 14:38 | disposition home or self-care (01) ==
LOC: SDS 19:51
PROVIDERS: Emergency Medicine; Hospitalist; Nurse Practitioner; Nurse Practitioner Adult Health; CONSULT PHYSICIAN Internal Medicine Interventional Cardiology; EMERGENCY PHYSICIAN Student in an Organized Health Care Education/Training Program; FAMILY PHYSICIAN Internal Medicine
DX: I35.2 Nonrheumatic aortic (valve) stenosis with insufficiency (principal); I25.110 Atherosclerotic heart disease of native coronary artery with unstable angina pectoris; I48.0 Paroxysmal atrial fibrillation; Z98.890 Other specified postprocedural states; Z95.1 Presence of aortocoronary bypass graft; Z95.3 Presence of xenogenic heart valve; Z90.49 Acquired absence of other specified parts of digestive tract; Z87.891 Personal history of nicotine dependence; E11.9 Type 2 diabetes mellitus without complications; I11.0 Hypertensive heart disease with heart failure; I50.33 Acute on chronic diastolic (congestive) heart failure; R91.1 Solitary pulmonary nodule; I48.20 Chronic atrial fibrillation, unspecified; K86.2 Cyst of pancreas; I45.81 Long QT syndrome; Z79.899 Other long term (current) drug therapy; I48.92 Unspecified atrial flutter; E78.00 Pure hypercholesterolemia, unspecified; K58.9 Irritable bowel syndrome, unspecified; K57.32 Diverticulitis of large intestine without perforation or abscess without bleeding; Z86.19 Personal history of other infectious and parasitic diseases; Z86.711 Personal history of pulmonary embolism; Z88.5 Allergy status to narcotic agent; Z79.84 Long term (current) use of oral hypoglycemic drugs; Z80.3 Family history of malignant neoplasm of breast; Z80.0 Family history of malignant neoplasm of digestive organs; Z79.01 Long term (current) use of anticoagulants
CPT/HCPCS: 99152; 99153; 93308; 93321; 93325; 71046; 76937; 80048; 80053; 83880; 84484; 85025; 85027; 86803; 93005; 93459; 99285; C1894; G0378; Q9967

== ENCOUNTER 2024-08-05 01:34 | Inpatient (IN) | payer MEDICARE, SELFPAY ==
[2024-08-04 20:13] VITALS: BP 129/83
[2024-08-04 20:46] VITALS: BP 124/66
--- NOTE | 2024-08-04 21:17 | ED.GENMED ---
History of Present Illness
General
Chief Complaint: Breathing Problem
Source: patient
Exam Limitations: none
Time Seen by Provider: 08/04/24 20:22
Nursing documentation reviewed up to this point in time: agreed with
History of Present Illness
History of Present Illness:
Patient is a pleasant 78-year-old female the past medical history of coronary artery disease, CABG, and recent aortic valve replacement surgery and ' tightening of the tricuspid valve' 11 days ago in [place]. Patient reports that over the last few
days she has been increasingly short of breath. Patient reports it is nearly impossible for her to lie flat. She feels as though she cannot breathe. She denies increased cough and fever. She has also noticed increased swelling of her legs and
weight gain. Patient is followed by Dr. Abril Guajardo. Additionally her daughter reports that her heart rate has been dipping down into the 50s, however, she does have a pacemaker so this is concerning to her daughter
Past History
Past History
ED Past Medical History: Arrthythmia (Atrial flutter with ablation), CAD, Hypercholesterolemia, MT, Valvular disease and Other (Herniated disc, Diverticulitis, PE)
ED Past Surgical History: Cardiac (Aortic valve replaced,) and Cholecystectomy
Social History
Tobacco: Former smoker
Alcohol: Occasional
Drug: None
Personal: ( in Assisted living due to intracranial bleed after fall)
Living: other
Employment: Employed
Family History
Family History: Other (Noncontributory)
Review of Systems
Review of Systems
Allergies reviewed?: Yes
All Other Systems: ROS reviewed and negative except as documented in HPI and ROS
Constitutional: Reports fatigue
EENT: Reports no symptoms
Respiratory: Reports trouble breathing
Cardiac: Reports no symptoms
ABD/GI: Reports constipated
: Reports no symptoms
Musculoskeletal: Reports no symptoms
Skin: Reports no symptoms
Neurological: Reports no symptoms
Endocrine: Reports no symptoms
Hematologic/Lymphatic: Reports no symptoms
Psychiatric: Reports no symptoms
Phy Exam
Physical Exam
Physical Exam:
Physical Exam
General: Patient appears tachypneic but is speaking full sentences nontoxic-appearing
Neck: supple. no meningeal signs. normal psoterior pharynx
Heart: s1/s2 regular rate and rhythm. Well-healing vertical chest wall incision in sternal area
Lungs: Tachypnea, decreased breath sounds bilaterally with crackles bilaterally
Abdomen: normal bowel sounds. not tender. no CVAT
Neuro: alert and oriented. no focal neurological deficits
Skin: no rash
Psychiatric: well kept. interactive and cooperative
Extremities: 1+ pitting edema bilateral lower extremities. Negative Homans' sign.
Scores
Heart Failure Risk
Heart Failure Risk Score: Not Applicable
Course
Orders/Labs/Results
Orders:
Orders
08/04/24 20:19
ECG [Electrocardiogram (*1)] Urgent
Reason for Study: Shortness of Breath
Other Reason for Exam: post op valve
EKG- Treatment ONCE
08/04/24 20:54
CR Chest Portable - 1 View Urgent
Comment:
Reason For Exam: SOB
Reason Study Needs to be Portable: Patient Unstable
08/04/24 21:17
Complete Blood Count/With Diff Urgent
Comprehensive Metabolic Panel Urgent
NT-proBNP Urgent
Prothrombin Time Urgent
Troponin I Urgent
08/04/24 21:20
Urinalysis Reflex To Culture Urgent
Date Specimen was Collected: 08/04/24
Time Specimen was Collected: 21:18
Urine Microscopic Reflex Cult Urgent
Urine Culture Urgent
DWIGHT Source: U
Specimen Description:
Date Specimen was Collected: 08/04/24
Time Specimen was Collected: 21:18
08/04/24 21:24
CT Chest PE Study Urgent
Comment:
Reason For Exam: SOB
08/04/24 22:04
Tramadol HCl [Ultram] 50 mg PO NOW STA
08/04/24 22:05
Ondansetron Injectable [Zofran] 4 mg IV NOW STA
08/04/24 22:52
Furosemide [Lasix] 40 mg IV NOW STA
08/04/24 23:00
Flush (0.9% Sodium Chloride) [Flush (Nss)] See Dose Instructions IV PER PROTOCOL
08/05/24 00:16
Admit/Transfer Patient As Directed
Co-Sign Provider:
Level of Care: Inpatient admission
Assign to:: IVU
Physician / Group: Paulie
Diagnosis: CHF
Reason for Hospitalization: CHF
Expected length of stay greater than two midnights?: Yes
ELOS- Estimated Length of Stay in days: 3
I certify the patient meets the requirements for IP care: Yes
08/05/24 00:17
PRN Pain Medication Management As Directed
May give lesser potent ordered pain med per pt: Yes
preference::
Protocol:: Medication orders for pain may be administered in a
manner that supports deferring to patient preference
when the pt is:
- Requesting an ordered lesser potent pain medication.
Least to most potent pain medications are defined
as: acetaminophen < NSAID < tramadol < opioids
(morphine, oxycodone, hydromorphone).
- Requesting a lesser dose of the same medication IF
ORDERED.
- Requesting a less intrusive route of administration
if both routes are prescribed by the provider (PO <
IV).
08/05/24 00:19
Code Status As Directed
Resuscitation Status: Full Code
Abnormal Lab Results
08/04/24 08/04/24
21:17 21:20
WBC 12.8 H 10^3/uL
(4.8-10.8)
RBC 2.92 L 10^6/uL
(4.20-5.40)
Hgb 9.3 L g/dL
(12.0-16.0)
Hct 28.0 L %
(37.0-47.0)
MCH 31.8 H pg
(27.0-31.0)
Plt Count 497 H 10^3/uL
(130-400)
Abs Immat Gran (auto) 0.1 H 10^3/uL
(0-0.05)
Absolute Neuts (auto) 10.1 H 10^3/uL
(1.4-6.5)
Absolute Monos (auto) 0.9 H 10^3/uL
(0.1-0.6)
Neutrophils % 78.8 H %
(42.2-75.2)
Lymphocytes % 9.3 L %
(20.5-51.1)
PT 20.5 H Sec
(11.4-14.6)
Carbon Dioxide 31 H mmol/L
(22-30)
Glucose 111 H mg/dl
(70-99)
Troponin I 0.065 H* ng/ml
Total Protein 6.2 L g/dl
(6.3-8.2)
Leukocyte Esterase Rfl 1+ A
(Negative)
Urine Glucose 3+ A
(Negative)
08/04/24 21:17
08/04/24 21:17
Vital Signs
Initial and Last Documented VS:
Initial Vital Signs
Temp Pulse Resp BP Pulse Ox
97.6 F 82 24 129/83 100
08/04/24 20:13 08/04/24 20:13 08/04/24 20:13 08/04/24 20:13 08/04/24 20:13
Last Documented Vital Signs
Temp Pulse Resp BP Pulse Ox
98.1 F 83 23 99/53 94
08/04/24 20:46 08/05/24 00:00 08/05/24 00:00 08/05/24 00:00 08/05/24 00:00
MDM/Problems Addressed
Differential Diagnosis Includes:
Pleural effusions, acute on chronic CHF, PE, pneumonia, pericardial effusion
MDM/Problems Addressed:
Patient comes in with acute shortness of breath
Chronic conditions affecting care: Cardiomyopathy
Acute Exacerbation and/or Progression of Chronic Illness:
Patient may have acute exacerbation of CHF
Acute Exacerbation and/or Progression of Chronic Illness: Cardiomyopathy
*Radiology
Radiology exam reviewed: preliminary read by ED provider (Chest x-ray read by me. Bilateral pleural effusions worse on the right) and radiology read reviewed
*Pulse Oximetry
Patient hypoxic: no
*EKG
Interpreted by ED Provider?: Yes
Interpretation: abnormal
Comparison EKG: changes noted (Ventricular pacemaker has replaced sinus rhythm)
Rate: tachycardiac
Rhythm: ventricular paced
[place]: left axis deviation
Interval: normal interval
QRS Pattern: wide non-specific
Ischemia: non-specific ST changes
*W[place] Farmer Interpretation
Rate: normal
Interpretation: normal
Rhythm: ventricular paced
*Critical Care Note
Total Time (30-74mins, 75-104mins- exclusive of procedures): Not Applicable (40 min)
comment:
40 minutes of critical care given to the patient including frequent reassessments of her respiratory effort, reviewing her lab work from [place], reviewing her lab work from today, reviewing her chest x-ray, CT and counseling the patient and her
daughter
Data Reviewed
Review of Other/Old Records Reveals: Testing (May 2024 echo showed EF of 55 to 60%)
Source: patient and family (Daughter who is at the bedside)
ED Attending Note
-
Portions of this chart may have been created with voice recognition software.� Occasional wrong word or��sound alike� substitutions may have occurred due to the inherent limitations of voice recognition software.
Discharge Plan
Departure
Patient Disposition: Admit
Date of Disposition: 08/04/24
Time of Disposition: 22:52
Admit to: Telemetry
Admit to doctor: Dr. Apodaca
Presentation/result/management discussed w/ accepting MD/DO: Hospitalist
Patient with high blood pressure during this ER visit?: No
Condition: Good
Covid-19: Not Applicable
Discharge Problem:
Acute respiratory distress, Bilateral pleural effusion
Prescriptions:
No Action
nadolol 20 mg Tablet
10 mg PO DAILY
ezetimibe 10 mg Tablet
10 mg PO HS
Jardiance 10 mg Tablet
10 mg PO DAILY
furosemide [Lasix] 20 mg tablet
20 mg PO DAILY Qty: 30 11RF
acetaminophen [Tylenol] 325 mg Tablet
650 mg PO Q6H
polyethylene glycol 3350 [Miralax] 17 gram Powder In Packet
17 g PO DAILY
tramadol 50 mg Tablet
25 mg PO Q6H
famotidine 20 mg Tablet
20 mg PO DAILY
aspirin 81 mg Capsule
81 mg PO DAILY
tramadol 25 mg Tablet
25 mg PO Q6H PRN (Reason: pain)
Coumadin
5 mg PO DAILY
Senna Lax
8.6 mg PO DAILY
Referrals:
Saba Arndt MD [Family Provider, Internal Medicine]
Interventions
Interventions:
*General Assessment Last Done: 08/04/24 20:53
*ED- Fall Risk Assessment Last Done: 08/04/24 20:53
*ED COVID-19 Vaccine History Last Done: 08/04/24 20:53
ED- Cardiac Assessment Last Done: 08/04/24 20:47
ED- Pulmonary Assessment Last Done: 08/04/24 20:47
Discharge Date and Time
Print Language: MONGOLIAN
[2024-08-04 21:27] LABS: % Basophils 0.9 % (0-2); % Eosinophils 3.4 % (0-6); % Immature Granulocytes 0.5 % (0-0.5); % Lymphocytes 9.3 % (20.5-51.1); % Monocytes 7.1 % (1.7-9.3); % Neutrophils 78.8 % (42.2-75.2); Absolute Basophils 0.1 10^3/uL (0-0.2); Absolute Eosinophils 0.4 10^3/uL (0-0.7); Absolute Immature Granulocytes 0.1 10^3/uL (0-0.05); Absolute Lymphocytes 1.2 10^3/uL (1.2-3.4); Absolute Monocytes 0.9 10^3/uL (0.1-0.6); Absolute Neutrophils 10.1 10^3/uL (1.4-6.5); Hemoglobin 9.3 g/dL (12.0-16.0); Mean Corp Hgb Conc. 33.2 g/dL (33.0-37.0); Mean Corpuscular Hgb 31.8 pg (27.0-31.0); Mean Corpuscular Volume 95.9 fL (81.0-99.0); Mean Platelet Volume 9.9 fL (7.4-10.4); Nucleated Red Blood Cells % 0 %; Platelet Count 497 10^3/uL (130-400); Red Blood Cell Count 2.92 10^6/uL (4.20-5.40); Red Cell Dist. Width 13.9 % (11.5-14.5); White Blood Cell Count 12.8 10^3/uL (4.8-10.8)
[2024-08-04 21:28] LABS: Urine Albumin Negative (Neg - Trace); Urine Bilirubin Negative (Negative); Urine Character Clear (Clear); Urine Color Yellow; Urine Glucose 3+ (Negative); Urine Ketone Negative (Negative); Urine Leukocyte 1+ (Negative); Urine Nitrite Negative (Negative); Urine Occult Blood Negative (Negative); Urine Specific Gravity 1.005 (<1.030); Urine Urobilinogen Negative (Neg - 1+)
[2024-08-04 21:36] LABS: INR 1.74; PT 20.5 Sec (11.4-14.6)
[2024-08-04 21:37] LABS: Urine Squamous Cell 0-2 /LPF (Few)
[2024-08-04 21:38] LABS: Urine Red Blood Cell None Seen /HPF (0-2); Urine White Cell 0-2 /HPF (0-5)
[2024-08-04 21:44] VITALS: BMI 27.0
[2024-08-04 21:47] VITALS: BP 120/58
[2024-08-04 21:47] LABS: ALT (SGPT) 21 U/L (0-35); AST (SGOT) 31 U/L (14-36); Alkaline Phosphatase 94 U/L (38-126); Blood Urea Nitrogen 13 mg/dl (7-17); Calcium 9.2 mg/dl (8.4-10.2); Carbon Dioxide 31 mmol/L (22-30); Chloride 107 mmol/L (98-107); Estimated Creatinine Clearance 55 ml/min; Glucose 111 mg/dl (70-99); Potassium 3.9 mmol/L (3.5-5.1); Sodium 142 mmol/L (135-145); Total Bilirubin 0.6 mg/dl (0.2-1.3); eGFR > 60.00
[2024-08-04 21:57] LABS: Albumin 3.9 g/dl (3.5-5.0); Total Protein 6.2 g/dl (6.3-8.2)
[2024-08-04 22:03] LABS: NT-proBNP 5520 pg/ml; Troponin I 0.065 ng/ml
[2024-08-04] MEDS: ULTRAM 50 MG PO (22:08)
[2024-08-04] MEDS: ZOFRAN 4 MG IV (22:09)
[2024-08-04] MEDS: LASIX 40 MG IV (23:08)
[2024-08-04 23:36] VITALS: BP 120/58
[2024-08-05] VITALS (18 sets, daily range): BP systolic 83–120; BP diastolic 50–68; PULSE 82; BMI 26.2
--- NOTE | 2024-08-05 00:23 | HPS.HSE ---
Family Physician
-
Family Physician: Saba Arndt
Chief Complaint
-
SOB
History of Present Illness
Patient is a 78y F with PMH significant for ASCVD, HFpEF, paroxysmal A-Fib and s/p AVR x 2 who presents to ED complaining of SOB. Patient was last hospitalized here in May 2024 for CHF felt to be secondary to worsening prosthetic valve
aortic insufficiency. 11 days ago she underwent revision AVR at [place] in [facility] (Dr. Gale). This was complicated by the development of complete heart block. Patient initially underwent transcutaneous and transvenous pacing before a permanent,
leadless pacemaker was placed. Daughter states that patient received Lasix / Bumex during her time in the hospital. She was discharged to home on no diuretics.
Patient states that she has experienced gradually worsening SOB, weakness and fatigue since her discharge. She has worse symptoms when lying flat and has been sleeping poorly.
She has a dry, hacking cough that is worse with deep breathing or lying flat. No fevers / chills. She has chest discomfort - likely expected following recent surgery / sternotomy.
Patient has noted increased LE edema. She has not been weighing herself at home.
On , patient went to local Cardiology office for INR check and was noted to be in volume overload. She was re-started on Lasix 20mg daily at that time.
Unfortunately her dyspnea has continued to progress, prompting her to present to the ED this evening for evaluation.
Medical History
Past Medical History
Past Medical History: Reports Other
Additional Past Medical History:
ASCVD
Aortic Stenosis / Aortic Insufficiency
Chronic A-fib status post PVI ablation 2016 2017
Hyperlipidemia
Pulmonary nodule
Pancreatic cyst
Pulmonary Embolism
HFpEF
Guillain-Valenzuela�
Restrictive lung disease
Lyme Disease
Diverticulosis
Past Surgical History: Reports Other
Additional Past Surgical History:
Revision AVR / Tricuspid Valve Repair (07/24/2024)
Right-sided Leadless Pacemaker Placement (07/2024)
Tonsillectomy
Cholecystectomy
Left wrist ORIF
CABG with SVG to RCA but this was an intraoperative complication at the time of her surgical AVR at [facility] back in 2007. At that time patient had RV failure and required temporary RVAD support
Aortic valve replaced (2007)
s/p PVI at [facility]
s/p atrial flutter ablation 04/23/2017
Social History
Tobacco: Former Smoker
Alcohol: Occasional
Drug: None
Personal: Single
Living: Alone
Employment: Retired
Family History
Family History: Other (Mother breast CA, father age 80s from sepsis, son bicuspid aortic valve, daughter multiple myeloma age 44)
Allergies / Home Medications
Allergies reflects when Allergies were last updated in [facility] Left.
Home Medications with original date entered in [facility]
Allergy/Medication List:
Allergies
Allergy/AdvReac Type Severity Reaction Status Date / Time
amiodarone (Amiodarone) Allergy Anaphylaxis Verified 08/04/24 20:18
hydrocodone bitartrate (From Allergy Vomiting Verified 08/04/24 20:18
Vicodin)
oxycodone HCl (From Percocet) Allergy Vomiting Verified 08/04/24 20:18
simvastatin (From Zocor) Allergy Hives Verified 08/04/24 20:18
Home Medications
empagliflozin 10 mg tablet (Jardiance) 10 mg PO DAILY Diabetes 02/27/24
ezetimibe 10 mg tablet 10 mg PO HS High Cholesterol 02/27/24
nadolol 20 mg tablet 10 mg PO DAILY Blood Pressure 02/27/24
furosemide 20 mg tablet (Lasix) 20 mg PO DAILY Heart Failure #30 tabs 05/16/24
Coumadin 5 mg PO DAILY 08/04/24
Senna Lax 8.6 mg PO DAILY 08/04/24
acetaminophen 325 mg tablet (Tylenol) 650 mg PO Q6H 08/04/24
aspirin 81 mg capsule 81 mg PO DAILY 08/04/24
famotidine 20 mg tablet 20 mg PO DAILY 08/04/24
polyethylene glycol 3350 17 gram oral powder packet (Miralax) 17 g PO DAILY 08/04/24
tramadol 25 mg tablet 25 mg PO Q6H PRN pain 08/04/24
tramadol 50 mg tablet 25 mg PO Q6H 08/04/24
Review of Systems
-
History Source: Patient
A 12 point ROS was completed and negative except as noted: Yes
Constitutional: Reports Fatigue; Denies Fever or Chills
EENT: Denies Sore Throat
Respiratory: Reports Cough and Trouble Breathing
Cardiac: Reports Chest Pain; Denies Diaphoresis, Palpitations or Syncope
Abdomen/GI: Reports Nausea and Bloody Stools; Denies Abdominal Pain, Vomiting, Diarrhea or Black Stools
: Reports Frequency; Denies Dysuria or Flank Pain
Musculoskeletal: Reports Edema; Denies Joint Pain
Neurological: Denies Dizzy or Headache
Psych: Denies Depression or Anxiety
Physical Exam
Vital Signs
Vital Signs
Temp Pulse Resp BP Pulse Ox
98.1 F 83 23 99/53 94
08/04/24 20:46 08/05/24 00:00 08/05/24 00:00 08/05/24 00:00 08/05/24 00:00
Physical Exam
General: Other (78y F in no acute distress.)
HEENT: Moist mucous membranes and PERRLA
Respiratory: Other (BS decreased at bases with few bibasilar rales.)
Cardiac: S1/S2 and Irregular Rhythm; No Murmur
GI: Soft, Non Tender, Non Distended and Normal Bowel Sounds
Musculoskeletal: No Clubbing, No Cyanosis and Other (1+ pitting edema at ankles bilaterally.)
Neuro: AO x 3
Laboratory Results
-
08/04/24 21:17
08/04/24 21:17
Laboratory Results
PT 20.5 Sec (11.4-14.6) H 08/04/24 21:17
INR 1.74 08/04/24 21:17
Total Bilirubin 0.6 mg/dl (0.2-1.3) 08/04/24 21:17
AST 31 U/L (14-36) 08/04/24 21:17
ALT 21 U/L (0-35) 08/04/24 21:17
Alkaline Phosphatase 94 U/L (38-126) 08/04/24 21:17
Troponin I 0.065 ng/ml H* 08/04/24 21:17
Impression/Plan
-
A/P: Patient is a 78y F with PMH significant for ASCVD, A-Fib and s/p recent revision aortic valve replacement who presents to ED complaining of worsening SOB x 11 days.
Acute on Chronic HFpEF
Aortic Insufficiency s/p Revision AVR (07/24/24)
s/p Tricuspid Valve Repair
- Admit for further evaluation and treatment.
- LE edema, bilateral pleural effusions, increased BNP, etc c/w volume overload.
- Continue IV Lasix 20mg BID for now.
- Follow I/Os, daily weights, etc.
- Continue Jardiance.
- Cardiology evaluation for additional recommendations.
Complete Heart Block
s/p PPM Placement
- Developed heart block post-op ultimately requiring permanent pacemaker placement.
- EKG shows paced rhythm.
- Daughter reports pulse (on pulse oximeter) registered in the 50s at home.
- Monitor on telemetry for any bradyarrhythmia / PPM issues.
Blood Loss Anemia
- Improving per patient / daughter.
- Received PRBC infusion during hospitalization at [place].
- Discharge Hgb was 8.1g / dL. Now 9.3 showing continued improvement.
- Mild leukocytosis and thrombocytosis likely represent demargination / marrow response.
- Follow for continued increase / improvement.
ASCVD
- Chest discomfort likely expected s/p recent sternotomy / surgery.
- Initial troponin mildly elevated - also likely expected.
- Follow for any significant increase in symptoms, troponin, etc.
- Continue usual CV med regimen including ASA, Zetia, etc.
- Continue post-op pain control with tramadol.
Paroxysmal Atrial Fibrillation / Flutter
- s/p multiple prior ablation procedures.
- Continue Coumadin for stroke risk reduction.
- Follow daily INR and adjust as needed.
DVT Prophylaxis
History of PE
- On Coumadin.
Code Status: Full
[2024-08-05 04:26] LABS: Hematocrit 27.2 % (37.0-47.0); Hemoglobin 8.7 g/dL (12.0-16.0); Mean Corpuscular Hgb 31.6 pg (27.0-31.0); Mean Corpuscular Volume 98.9 fL (81.0-99.0); Mean Platelet Volume 10.1 fL (7.4-10.4); Platelet Count 467 10^3/uL (130-400); Red Blood Cell Count 2.75 10^6/uL (4.20-5.40); White Blood Cell Count 10.8 10^3/uL (4.8-10.8)
[2024-08-05 04:41] LABS: INR 1.79
[2024-08-05 04:55] LABS: Blood Urea Nitrogen 12 mg/dl (7-17); Calcium 8.8 mg/dl (8.4-10.2); Carbon Dioxide 34 mmol/L (22-30); Chloride 103 mmol/L (98-107); Estimated Creatinine Clearance 49 ml/min; Glucose 97 mg/dl (70-99); Potassium 3.8 mmol/L (3.5-5.1); Sodium 141 mmol/L (135-145); eGFR > 60.00
[2024-08-05 05:07] LABS: Troponin I 0.064 ng/ml
--- NOTE | 2024-08-05 05:21 | PTCARENOTE ---
Pt. rec'd into room 2250 from ED AAOx3, VSS, V-paced on the monitor. Able to ambulate independently with steady gait, some FUCHS assessed. B/L lungs coarse with scattered crackles, RA pulse ox 97%. Voiding clear yellow urine without difficulty.
Sternal wound from previous AVR BEKA and approximated without drainage, sternal precautions maintained. AM labs and EKG completed, pt. oriented to plan of care and room, understanding verbalized. Pt. currently sleeping.
--- NOTE | 2024-08-05 08:08 | CON.CAR ---
Consultation
Consultation Request
Date/Time Consultation Requested: 08/05/2024 7 AM
Date/Time Consultation Performed: 08/05/2024 at 8 AM
Requesting Provider: Dr. Brizuela
Performing Provider: Dr. Abril Maxwell
Reason for Consultation: Shortness of breath
Medical History
-
Chief Complaint: Shortness of breath
History of Present Illness:
She is well-known to me. She is accompanied by her daughter at the bedside. She recently 07/2024 underwent bioprosthetic aortic valve replacement at [place]. At that time she also underwent tricuspid valve repair, Dr. Mai. She was discharged
07/31/2024. She was high risk given prior aortic valve placement (BAV) at [facility] (2007) with resultant n right ventricular failure, emergent RVAD support and RCA bypass with saphenous vein graft. 07/24/2024 reoperative median
sternotomy. Aortic valve replacement with 23 mm bovine pericardial magna valve. Tricuspid valve repair with 32 mm Abbi ring. She is currently on Coumadin preprocedure she was on Eliquis.
She called the answering service last night and was on her way to the emergency department for shortness of breath. Initial EKG with sinus tachycardia/atrial tachycardia, probable atrial tachycardia currently today in sinus rhythm. She is anemic
with hemoglobin this morning of 8.7. Chest x-ray last night consistent with heart failure with mild acute interstitial cardiogenic pulmonary edema and small to moderate size bilateral pleural effusions. Chronic granulomatous disease in the left
lung. CT scan is pending. BUN/creatinine 12/0.8. proBNP 5520 troponins are flat at 0.065 and 0.064.
She has dyspnea on exertion but is feeling better with diuresis. She denies chest pain. She does feel that she has been going out atrial fibrillation.
During most recent hospitalization she needed postop pacemaker and dual-chamber leadless Samayoa Aveir pacemaker was implanted 07/27/2024 for heart block.
She has history of atrial fibrillation and atrial flutter. There is a history initially years ago of long QT syndrome for which she previously has been on nadolol but historically long QT has not been observed. Arrhythmia history otherwise she is
status post ablation 04/2017 of atrial flutter without recurrence at last office visit. Atrial myopathy was noted by electrophysiology study. More recently she underwent a pulmonary vein isolation for atrial fibrillation (2022) at [place]. This
was complicated by pericarditis and pleuritis and she was transiently on Lasix and colchicine.
Prior to admission 07/[address] surgery she was admitted for acute HFpEF 05/16/2024 given worsening bioprosthetic aortic valve dysfunction. At that time echocardiogram 05/15/2024 revealed moderate to severe aortic valve insufficiency. She was
symptomatic at that time.
-
Past Medical History
Past Medical History: Arrhythmias (Atrial flutter ablation 2017, atrial fibrillation PVI 2022), CAD (CABG given mechanical obstruction of RCA in 2007), CHF (HFpEF postop and when aortic valve was tightening) and Other (Bicuspid aortic valve surgery
2008 surgery 07/2024)
Past Surgical History: Cardiac (2007 bioprosthetic aortic valve replacement complicated postop requiring urgent RVAD and RCA bypass with SVG; [place] 07/2024 aortic valve replacement with 23 mm bovine pericardial magna valve. Tricuspid valve repair
with 32 mm Abbi ring)
Social History
Tobacco: Non-Smoker
Personal:
Living: Alone
Family History
Family History: Reviewed & Not Pertinent
Allergies / Home Medications
Allergy/AdvReac Type Severity Reaction Status Date / Time
amiodarone (Amiodarone) Allergy Anaphylaxis Verified 08/04/24 20:18
hydrocodone bitartrate (From Allergy Vomiting Verified 08/04/24 20:18
Vicodin)
oxycodone HCl (From Percocet) Allergy Vomiting Verified 08/04/24 20:18
simvastatin (From Zocor) Allergy Hives Verified 08/04/24 20:18
�Medication �Instructions �Recorded �Confirmed �Type
empagliflozin 10 mg tablet 10 mg PO DAILY Diabetes 02/27/24 08/04/24 History
(Jardiance)
ezetimibe 10 mg tablet 10 mg PO HS High Cholesterol 02/27/24 08/04/24 History
nadolol 20 mg tablet 10 mg PO DAILY Blood Pressure 02/27/24 08/04/24 History
furosemide 20 mg tablet (Lasix) 20 mg PO DAILY Heart Failure #30 05/16/24 08/04/24 Rx
tabs
Coumadin 5 mg PO DAILY 08/04/24 08/04/24 History
Senna Lax 8.6 mg PO DAILY 08/04/24 08/04/24 History
acetaminophen 325 mg tablet 650 mg PO Q6H 08/04/24 08/04/24 History
(Tylenol)
aspirin 81 mg capsule 81 mg PO DAILY 08/04/24 08/04/24 History
famotidine 20 mg tablet 20 mg PO DAILY 08/04/24 08/04/24 History
polyethylene glycol 3350 17 gram 17 g PO DAILY 08/04/24 08/04/24 History
oral powder packet (Miralax)
tramadol 25 mg tablet 25 mg PO Q6H PRN pain 08/04/24 08/04/24 History
tramadol 50 mg tablet 25 mg PO Q6H 08/04/24 08/04/24 History
Review of Systems
-
History Source: Patient and Family
Constitutional: Fatigue
Respiratory: Trouble Breathing
Cardiac: Other (thrasher)
Abdomen/GI: Nausea
Physical Exam
Vital Signs
Temp Pulse Resp BP Pulse Ox
97.9 F 80 20 120/65 98
08/05/24 07:34 08/05/24 05:00 08/05/24 07:34 08/05/24 03:35 08/05/24 07:34
Lab Results
08/05/24 03:50
08/05/24 03:50
Troponin I 0.064 ng/ml H* 08/05/24 03:50
Ysh-A-Fgeczvbzovq Pept 5520 pg/ml 08/04/24 21:17
General: Fatigued appearing woman
Heart: Regular rate and rhythm 3/6 murmur at apex
Lungs: Coarse breath sounds with bilateral crackles
Extremities: No clubbing, cyanosis and trace edema bilaterally.
Neuro: Grossly nonfocal, awake, alert and oriented x3.
Impression / Plan
-
Impression/Plan :
PCP: Dr. Arndt
Card: Dr. Abril Maxwell
CT surgeon: Dr. Mai at [place]
Impression:
Acute on chronic heart failure with preserved ejection fraction postop recent redo CT surgery. Small to moderate pleural effusions.
Possible atrial tachycardia on presentation
Recent heart block postop 07/27/2024 status post Samayoa Aveir dual-chamber leadless pacemaker.
History of bicuspid aortic valve AVR 2007 [facility]. Recent bioprosthetic aortic valve degeneration. 07/24/2024 status post bioprosthetic redo aortic valve ([place]) tricuspid valve ring.
s/p CABG with SVG to RCA
Intraoperative complication requiring temporary RVAD assistance at time of AVR 2007s/p tissue AVR at [place] 2007
Chronic HFpEF
Paroxysmal atrial [facility]
s/p atrial flutter ablation 04/23/2017 h/o long QT syndrome seen on exercise only during previous stress test, intolerant to AAD in particular amiodarone, diagnosed elsewhere in the past
History of long QT especially with exercise and with amiodarone.
h/o PE
Pulmonary nodule
History of Lyme disease
History of Guillain-Valenzuela�
IBS
Nausea and usual postop pain
Echo 04/10/2024: EF 72%, stage II diastolic dysfunction, mild MR, #23 bovine bioprosthetic AVR peak/mean 50/31 mmHg, moderate aortic regurgitation pressure half-time 455 ms, mild to moderate TR with PAP 51 mmHg, no pericardial effusion
Echo 05/15/2024: Limited follow-up study, EF 55%, #23 bioprosthetic AVR with mean gradient 24 mmHg, there is moderate to moderate to severe aortic insufficiency and the pressure half-time across the valve 641 ms may underestimate the severity of
aortic insufficiency
Cardiac catheterization 05/15/2024: Moderate aortic valve stenosis of bioprosthetic aortic valve. LVEDP 29. Stable coronary anatomy with patent SVG to mid/distal RCA. No coronary disease otherwise.
CT of the chest 08/04/2024: MODERATE-SIZED RIGHT and SMALL LEFT PLEURAL EFFUSIONS. Mild acute interstitial and alveolar cardiogenic pulmonary edema. MODERATE CARDIOMEGALY. Chronic granulomatous disease infection in the left upper lobe.
Plan:
Patient is status post high risk redo bioprosthetic aortic valve replacement and tricuspid valve ring at [place]. Discharged 07/31/2024. She feels that she was volume overloaded on discharge and has had continued progressive shortness of breath.
Of note patient had heart block noted postop and underwent implant of dual-chamber leadless pacemaker system Samayoa Bennettr Danisha. Patient with history of atrial arrhythmias as noted with sinus tachycardia/atrial tachycardia on admission. Acute on
chronic heart failure with elevated proBNP, pleural effusions and interstitial edema noted. Feeling better with diuresis. She however continues with postsurgical pain and nausea.
Of note patient has history of long QT noted with exercise previously and cannot take antiarrhythmic drug therapy including significant reaction to amiodarone.
-Given heart failure with previously preserved ejection fraction with volume overload postop which may be in part iatrogenic related to recent CT surgery, 07/24/2024 plan for diuresis.
- Continue IV Lasix 20 mg IV twice daily May need to increase in the a.m. if diuresis not effective
- Aggressive repletion of electrolytes and will check chemistry and magnesium in the morning
- Incentive spirometry ordered. Increase activity as tolerates.
- Follow input/output and daily weights.
- Check echocardiogram in the a.m. She is status post Aortic valve replacement with 23 mm bovine pericardial magna valve. Tricuspid valve repair with 32 mm Abbi ring
- Per CT surgery at [place] anticoagulation with Coumadin with goal INR 2-3 (atrial arrhythmia history). Previously on Eliquis.
- Continue usual postop care.
-Minimally elevated troponins which are downtrending which is not unexpected given open heart surgery. No indication to continue following troponins and I have discontinued.
-She does not have coronary artery disease. RCA bypass was secondary to mechanical complication
- Not getting relief of nausea. Will try sparingly Zofran while inpatient however must keep a close eye on QT interval given history of intermittent long QT. Would not discharge patient on QT prolonging medication.
- EKG in a.m.
- Patient with atrial flutter ablation in 2017
- Patient with atrial fibrillation in 2022
- Suspect intermittent atrial tachycardia noted now with dual-chamber leadless pacemaker. Continue anticoagulation.
- Needs pacemaker check in a.m.
- Telemetry independently reviewed by me
Reviewed with patient and her daughter.
Reviewed with nursing
Data Reviewed
-
EKG: Tracing Personally Visualized and interpreted
Radiology: Image Personally Visualized and interpreted and Report Reviewed by me
CT Scan: Report Reviewed by me
Ultrasound: Report Reviewed by me
Medical Tests (Nuc Med, Echo etc): Image Personally Visualized and interpreted
Labs: Labs Reviewed by me
Old Records: Reviewed
Total Time Spent with Patient (in minutes): 76 minutes treating patient and reviewing records
[2024-08-05] MEDS: COMPAZINE 5 MG IV (09:14)
[2024-08-05] MEDS: ULTRAM 25 MG PO ×2 (09:28→16:53)
[2024-08-05] MEDS: LASIX 20 MG IV ×2 (09:30→16:42)
[2024-08-05] MEDS: COLACE 100 MG PO ×2 (09:42→22:03)
[2024-08-05] MEDS: MIRALAX 17 GRAMS PO (09:42)
[2024-08-05] MEDS: KLOR-CON 20 MEQ PO (10:38)
[2024-08-05] MEDS: PEPCID 20 MG PO (10:39)
[2024-08-05] MEDS: FARXIGA 10 MG PO (10:39)
[2024-08-05] MEDS: CORGARD 10 MG PO (10:39)
[2024-08-05] MEDS: ASPIR LOW (ENTERIC COATED) 81 MG PO (10:40)
[2024-08-05 11:01] LABS: Troponin I 0.058 ng/ml
--- NOTE | 2024-08-05 15:17 | PTCARENOTE ---
Discussed all nursing measures prior to implementation. VSS Discussed plan of care w/ pt and pt's daughter. Will monitor.
--- NOTE | 2024-08-05 16:57 | W.PN.HOSP.TC ---
Today's Communication/Plan
-
extra 2 mg coumadin tonight
follow INR
CBC in AM
Dulcolax for constipation (discussed with pt)
Assessment / Plan
Assessment / Plan
A/P: Patient is a 78y F with PMH significant for ASCVD, A-Fib and s/p recent revision aortic valve replacement who presents to ED complaining of worsening SOB x 11 days.
Acute on Chronic HFpEF
Aortic Insufficiency s/p Revision AVR (07/24/24)
s/p Tricuspid Valve Repair
- Admit for further evaluation and treatment.
- LE edema, bilateral pleural effusions, increased BNP, etc c/w volume overload.
- Continue IV Lasix 20mg BID for now.
- Follow I/Os, daily weights, etc.
- Continue Jardiance.
- Cardiology evaluation appreciated.
Complete Heart Block
s/p PPM Placement
- Developed heart block post-op ultimately requiring permanent pacemaker placement.
- EKG shows paced rhythm.
- Daughter reports pulse (on pulse oximeter) registered in the 50s at home.
- Monitor on telemetry for any bradyarrhythmia / PPM issues.
Blood Loss Anemia
- Improving per patient / daughter.
- Received PRBC infusion during hospitalization at [place].
- Discharge Hgb was 8.1g / dL. Now 9.3-->8.7
- Mild leukocytosis and thrombocytosis likely represent demargination / marrow response.
- Follow for continued increase / improvement.
Constipation
laxatives have not been effective, will try 1 dose of Dulcolax supp
ASCVD
- Chest discomfort likely expected s/p recent sternotomy / surgery.
- Initial troponin mildly elevated - also likely expected.
- Follow for any significant increase in symptoms, troponin, etc.
- Continue usual CV med regimen including ASA, Zetia, etc.
- Continue post-op pain control with tramadol.
Paroxysmal Atrial Fibrillation / Flutter
- s/p multiple prior ablation procedures.
- Continue Coumadin for stroke risk reduction. INR 1.79
- Follow daily INR and adjust as needed, will cautiously give extra 2 mg tonight (total 7mg).
DVT Prophylaxis
History of PE
- On Coumadin.
Code Status: Full
Anticipated Discharge: > 48 hours
Subjective/Interval History
-
Date of Service: August 05, 2024
Had nausea earlier, now resolved. Current issue is constipation
Objective Data
-
Vital Signs:
Vital Signs
Temp Pulse Resp BP Pulse Ox
98.3 F 69 20 108/50 93
08/05/24 16:37 08/05/24 16:42 08/05/24 16:37 08/05/24 16:42 08/05/24 16:37
I&O
08/04/24 08/05/24 08/06/24
06:59 06:59 06:59
Intake Total 640 / 640
Output Total 1900 / 1900 700 / 700
Balance -1260 / -1260 -700 / -700
Review of Systems
-
History Source: Patient and Coordinated Provider
Constitutional: Denies Fever
EENT: Reports No Symptoms Reported
Respiratory: Reports No Symptoms
Cardiac: Reports Chest Pain (post op chest wall)
Abdomen/GI: Reports Nausea (better) and Constipated
Genitourinary: Reports No Symptoms
Physical Exam
-
General: Well Developed, Well Nourished, No Apparent Distress and Conversant (very well spoken)
HEENT: Normocephalic, Atraumatic and Moist Mucous Membranes
Respiratory: Clear to Auscultation; Negative Wheezes, Rales or Rhonchi
Cardiac: Regular Rhythm, S1/S2 and Murmur (3/6 at apex)
Musculoskeletal: No Clubbing, No Cyanosis and No Edema
[2024-08-05] MEDS: COUMADIN 2 MG PO (18:25)
[2024-08-05] MEDS: COUMADIN 5 MG PO (18:26)
[2024-08-05] MEDS: CORGARD PO (20:25)
[2024-08-05] MEDS: SENOKOT 17.2 MG PO (22:03)
[2024-08-05] MEDS: ZETIA 10 MG PO (22:03)
[2024-08-06] VITALS (13 sets, daily range): BP systolic 85–117; BP diastolic 48–95; PULSE 73; BMI 25.9
--- NOTE | 2024-08-06 01:06 | PTCARENOTE ---
Pt.'s BP running low at beginning of shift - 83/51, 94/55 on recheck. Pt. denied any dizziness/lightheadedness but complained of fatigue and feeling 'washed out'. 1999 nadolol held per parameters. Otherwise pt. V & AV paced on the monitor,
ambulates independently. Currently sleeping.
[2024-08-06] MEDS: ULTRAM 25 MG PO ×2 (03:26→19:01)
[2024-08-06] MEDS: ZOFRAN 4 MG PO (03:27)
[2024-08-06 03:56] LABS: % Basophils 1.2 % (0-2); % Immature Granulocytes 0.5 % (0-0.5); % Lymphocytes 18.1 % (20.5-51.1); % Monocytes 9.2 % (1.7-9.3); Absolute Basophils 0.1 10^3/uL (0-0.2); Absolute Eosinophils 0.5 10^3/uL (0-0.7); Absolute Lymphocytes 1.6 10^3/uL (1.2-3.4); Absolute Monocytes 0.8 10^3/uL (0.1-0.6); Absolute Neutrophils 5.6 10^3/uL (1.4-6.5); Hematocrit 26.8 % (37.0-47.0); Hemoglobin 8.6 g/dL (12.0-16.0); Mean Corp Hgb Conc. 32.1 g/dL (33.0-37.0); Mean Corpuscular Hgb 31.6 pg (27.0-31.0); Mean Corpuscular Volume 98.5 fL (81.0-99.0); Nucleated Red Blood Cells % 0 %; Platelet Count 439 10^3/uL (130-400); Red Blood Cell Count 2.72 10^6/uL (4.20-5.40); Red Cell Dist. Width 14.1 % (11.5-14.5); White Blood Cell Count 8.6 10^3/uL (4.8-10.8)
[2024-08-06 04:08] LABS: INR 1.75; PT 20.6 Sec (11.4-14.6)
[2024-08-06 04:22] LABS: Blood Urea Nitrogen 13 mg/dl (7-17); Carbon Dioxide 33 mmol/L (22-30); Chloride 102 mmol/L (98-107); Estimated Creatinine Clearance 49 ml/min; Glucose 95 mg/dl (70-99); Magnesium 2.1 mg/dl (1.6-2.3); Potassium 4.3 mmol/L (3.5-5.1); Sodium 137 mmol/L (135-145); eGFR > 60.00
[2024-08-06] MEDS: ASPIR LOW (ENTERIC COATED) 81 MG PO (08:01)
[2024-08-06] MEDS: MIRALAX 17 GRAMS PO (08:01)
[2024-08-06] MEDS: KLOR-CON 20 MEQ PO (08:01)
[2024-08-06] MEDS: CORGARD 10 MG PO (08:02)
[2024-08-06] MEDS: COLACE 100 MG PO ×2 (08:02→20:38)
[2024-08-06] MEDS: FARXIGA 10 MG PO (08:02)
[2024-08-06] MEDS: PEPCID 20 MG PO (08:02)
[2024-08-06] MEDS: LASIX 20 MG IV (08:03)
[2024-08-06] MEDS: COUMADIN 6 MG PO (08:06)
--- NOTE | 2024-08-06 09:17 | W.PN.CARDCBS ---
Today's Communication / Plan
-
Continue diuretic
Echocardiogram ordered
Pacemaker check today.
PT consult
Coumadin 5 mg his baseline dose. Was given 7 yesterday we will give 6 today.
Tried Zofran for her nausea which has helped however QT has prolonged this morning. Discontinue Zofran.
EKG in a.m.
Impression / Plan
-
Impression/Plan :
PCP: Dr. Arndt
Card: Dr. Abril Maxwell
CT surgeon: Dr. Mai at [place]
Impression:
Acute on chronic heart failure with preserved ejection fraction postop recent redo CT surgery. Small to moderate pleural effusions.
Possible atrial tachycardia on presentation
Recent heart block postop 07/27/2024 status post Samayoa Aveir dual-chamber leadless pacemaker.
History of bicuspid aortic valve AVR 2007 [facility]. Recent bioprosthetic aortic valve degeneration. 07/24/2024 status post bioprosthetic redo aortic valve ([place]) tricuspid valve ring.
s/p CABG with SVG to RCA
Intraoperative complication requiring temporary RVAD assistance at time of AVR 2007s/p tissue AVR at [place] 2007
Chronic HFpEF
[facility]oxysmal [facility]
s/p atrial flutter ablation 04/23/2017 h/o long QT syndrome seen on exercise only during previous stress test, intolerant to AAD in particular amiodarone, diagnosed elsewhere in the past
History of long QT especially with exercise and with amiodarone.
h/o PE
Pulmonary nodule
History of Lyme disease
History of Guillain-Valenzuela�
IBS
Nausea and usual postop pain
Echo 04/10/2024: EF 72%, stage II diastolic dysfunction, mild MR, #23 bovine bioprosthetic AVR peak/mean 50/31 mmHg, moderate aortic regurgitation pressure half-time 455 ms, mild to moderate TR with PAP 51 mmHg, no pericardial effusion
Echo 05/15/2024: Limited follow-up study, EF 55%, #23 bioprosthetic AVR with mean gradient 24 mmHg, there is moderate to moderate to severe aortic insufficiency and the pressure half-time across the valve 641 ms may underestimate the severity of
aortic insufficiency
Cardiac catheterization 05/15/2024: Moderate aortic valve stenosis of bioprosthetic aortic valve. LVEDP 29. Stable coronary anatomy with patent SVG to mid/distal RCA. No coronary disease otherwise.
CT of the chest 08/04/2024: MODERATE-SIZED RIGHT and SMALL LEFT PLEURAL EFFUSIONS. Mild acute interstitial and alveolar cardiogenic pulmonary edema. MODERATE CARDIOMEGALY. Chronic granulomatous disease infection in the left upper lobe.
Plan:
-Given heart failure with previously preserved ejection fraction with volume overload postop which may be in part iatrogenic related to recent CT surgery, 07/24/2024 plan for diuresis.
- Continue IV Lasix 20 mg IV twice daily May need to increase in the a.m. if diuresis not effective
- Aggressive repletion of electrolytes which remains stable. Magnesium is also normal.
- Follow input/output and daily weights.
- Check echocardiogram in the a.m. She is status post Aortic valve replacement with 23 mm bovine pericardial magna valve. Tricuspid valve repair with 32 mm Abbi ring
- Per CT surgery at [facility] anticoagulation with Coumadin with goal INR 2-3 (atrial arrhythmia history). Previously on Eliquis. Appears she may have received 7 mg of Coumadin yesterday was on 5 mg. Will give 6 mg of Coumadin today.
- Continue usual postop care.
-Minimally elevated troponins which are downtrending which is not unexpected given open heart surgery. No indication to continue following troponins and I have discontinued.
-She does not have coronary artery disease. RCA bypass was secondary to mechanical complication
- Not getting relief of nausea. Tried Zofran for her nausea which has helped however QT has prolonged this morning. Discontinue Zofran.
- EKG in a.m.
- Patient with atrial flutter ablation in 2017
- Patient with atrial fibrillation in 2023
- Suspect intermittent atrial tachycardia noted now with dual-chamber leadless pacemaker. Continue anticoagulation.
- Needs pacemaker check in a.m. we have contacted direct customer service representative
- Telemetry independently reviewed by me
Reviewed with patient
Patient is status post high risk redo bioprosthetic aortic valve replacement and tricuspid valve ring at [place]. Discharged 07/31/2024. She feels that she was volume overloaded on discharge and has had continued progressive shortness of breath.
Of note patient had heart block noted postop and underwent implant of dual-chamber leadless pacemaker system Vigiglober D. Patient with history of atrial arrhythmias as noted with sinus tachycardia/atrial tachycardia on admission. Acute on
chronic heart failure with elevated proBNP, pleural effusions and interstitial edema noted. Feeling better with diuresis. She however continues with postsurgical pain and nausea.
Of note patient has history of long QT noted with exercise previously and cannot take antiarrhythmic drug therapy including significant reaction to amiodarone.
Progress Note - People Manager
Subjective
Date of Service: August 06, 2024
She has shortness of breath. She feels fatigued.
Objective
Labs:
08/06/24 03:27
08/06/24 03:27
Labs
Hgb 8.6 g/dL (12.0-16.0) L 08/06/24 03:27
Hct 26.8 % (37.0-47.0) L 08/06/24 03:27
Plt Count 439 10^3/uL (130-400) H 08/06/24 03:27
PT 20.6 Sec (11.4-14.6) H 08/06/24 03:27
INR 1.75 08/06/24 03:27
Sodium 137 mmol/L (135-145) 08/06/24 03:27
Potassium 4.3 mmol/L (3.5-5.1) 08/06/24 03:27
BUN 13 mg/dl (7-17) 08/06/24 03:27
Creatinine 0.8 mg/dL (0.6-1.0) 08/06/24 03:27
Glucose 95 mg/dl (70-99) 08/06/24 03:27
Troponins
08/04/24 08/05/24 08/05/24
21:17 03:50 10:22
Troponin I 0.065 H* 0.064 H* 0.058 H*
08/05/24
15:26
Troponin I Cancelled
Vital Signs and I&O:
Vital Signs
Temp Pulse Resp BP Pulse Ox
98.5 F 109 20 115/52 95
08/06/24 07:49 08/06/24 08:03 08/06/24 07:49 08/06/24 08:03 08/06/24 07:49
Vital Signs
Temp Pulse Resp BP Pulse Ox
98.5 F 109 20 115/52 95
08/06/24 07:49 08/06/24 08:03 08/06/24 07:49 08/06/24 08:03 08/06/24 07:49
Intake & Output
08/04/24 08/05/24 08/06/24 08/07/24
06:59 06:59 06:59 06:59
Intake Total 640 / 640 490 / 490
Output Total 1900 / 1900 1700 / 1700
Balance -1260 / -1260 -1210 / -1210
Physical Exam
Physical Exam
General: Well developed, well nourished in NAD.
Neck: Supple, no JVD, HJR, carotids +2 B/L, no bruits bilaterally.
Heart: Non displaced PMI, RRR, 2/6 left sternal border/apical murmur, No S3, S4, no rubs.
Lungs: Crackles at the bases with decreased breath sounds
Extremities: No clubbing, cyanosis and +1 edema bilaterally.
Neuro: Grossly nonfocal, awake, alert and oriented x3.
--- NOTE | 2024-08-06 11:13 | W.CARD.DEVCH ---
Cardiac Device Check
-
Device: Pacemaker
Assistant Professor Of Biology: [employer]
The patient's device was interrogated with assistance of the device product support sales representative followed by a complete physician review.
Patient had an Samayoa Aveir dual-chamber leadless pacemaker placed after her most recent AVR at [place] 07/2024.
Device check today showed no evidence of PMT and it was likely A. 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
Additional device follow-up planned for the office
--- NOTE | 2024-08-06 15:12 | CM ---
spoke to pt and daughter in room, she is prev indep, lives alone in a 2 story home with no steps to enter. she denies any dme's. pt states she would like to go to rehab. PT/OT ordered. discussed with pt/daughter the process of getting PT/OT
recommendation for level of care needed at dc and that she would need to qualify for rehab. cm to follow.
--- NOTE | 2024-08-06 16:29 | W.PN.HOSP.TC ---
Today's Communication/Plan
-
follow labs
input of cardio and pulm appreciated
extra 1 mg Coumadin today
Jevity feeds started at 30 cc/hr, cautiously increase
Assessment / Plan
Assessment / Plan
A/P: Patient is a 78y F with PMH significant for ASCVD, A-Fib and s/p recent revision aortic valve replacement who presents to ED complaining of worsening SOB x 11 days.
Acute on Chronic HFpEF
Aortic Insufficiency s/p Revision AVR (07/24/24)
s/p Tricuspid Valve Repair
- Admit for further evaluation and treatment.
- LE edema, bilateral pleural effusions, increased BNP, etc c/w volume overload.
- Continue IV Lasix 20mg BID for now.
- Follow I/Os, daily weights, etc.
- Continue Jardiance.
- Cardiology evaluation appreciated.
08/06 Echo: Normal left ventricular chamber size. Abnormal (paradoxical) septal motion
consistent with postoperative status. Normal left ventricular systolic
function. Left ventricular ejection fraction is 55% by visual assessment.
Normal regional wall motion. Normal left ventricular wall thickness.
Pacer wire seen in right ventricle.
Moderate- Severe mitral regurgitation. Systolic flow reversal in the pulmonary
veins with mitral regurgitation present. Peak gradient 10mmHg/Mean gradient
3mmHg.
S/P 23mm Bovine Pericardial Magna bioprosthetic aortic valve - Peak gradient
29mmHg/Mean gradient 16mmHg. No aortic regurgitation is seen.
S/P 32mm Abbi ring - mild tricuspid regurgitation. Estimated pulmonary
artery pressure of 35-40 mmHg
Compared to prior echo from 2D May 2024, mean grad AVR was 24 mmHg
previously, TV and MV not assessed and there is now mod to severe MR and s/p TV
ring.
Complete Heart Block
s/p PPM Placement
- Developed heart block post-op ultimately requiring permanent pacemaker placement.
- EKG shows paced rhythm.
- Daughter reports pulse (on pulse oximeter) registered in the 50s at home.
- Monitor on telemetry for any bradyarrhythmia / PPM issues.
Blood Loss Anemia
- Improving per patient / daughter.
- Received PRBC infusion during hospitalization at [place].
- Discharge Hgb was 8.1g / dL. Now 9.3-->8.7
- Mild leukocytosis and thrombocytosis likely represent demargination / marrow response.
- Follow for continued increase / improvement.
Constipation
laxatives have not been effective, including 1 dose of Dulcolax supp, will order Fleets enema.
ASCVD
- Chest discomfort likely expected s/p recent sternotomy / surgery.
- Initial troponin mildly elevated - also likely expected.
- Follow for any significant increase in symptoms, troponin, etc.
- Continue usual CV med regimen including ASA, Zetia, etc.
- Continue post-op pain control with tramadol.
Paroxysmal Atrial Fibrillation / Flutter
- s/p multiple prior ablation procedures.
- Continue Coumadin for stroke risk reduction. INR 1.79
- Follow daily INR and adjust as needed, gave extra 2 mg 6/1 (total 7mg).INR remains subtherapeutic and will get extra 1 mg today (total 6mg)
DVT Prophylaxis
History of PE
- On Coumadin.
Code Status: Full
Evaluated with amarilis Bush in room and then full review with her ouside of room
Anticipated Discharge: > 48 hours
Subjective/Interval History
-
Date of Service: August 06, 2024
Generally feeling better, but still has not moved bowels
Objective Data
-
Vital Signs:
Vital Signs
Temp Pulse Resp BP Pulse Ox
98.3 F 61 20 117/95 97
08/06/24 16:04 08/06/24 12:11 08/06/24 16:04 08/06/24 12:11 08/06/24 16:04
I&O
08/05/24 08/06/24 08/07/24
06:59 06:59 06:59
Intake Total 640 / 640 490 / 490
Output Total 1900 / 1900 1700 / 1700 800 / 800
Balance -1260 / -1260 -1210 / -1210 -800 / -800
Review of Systems
-
History Source: Patient and Coordinated Provider
Constitutional: Denies Fever
EENT: Reports No Symptoms Reported
Respiratory: Reports No Symptoms
Cardiac: Reports Chest Pain (post op chest wall)
Abdomen/GI: Reports Nausea (better) and Constipated
Genitourinary: Reports No Symptoms
Physical Exam
-
General: Well Developed, Well Nourished, No Apparent Distress and Conversant (very well spoken)
HEENT: Normocephalic, Atraumatic and Moist Mucous Membranes
Respiratory: Clear to Auscultation; Negative Wheezes, Rales or Rhonchi
Cardiac: Regular Rhythm, S1/S2 and Murmur (3/6 at apex)
Musculoskeletal: No Clubbing, No Cyanosis and No Edema
--- NOTE | 2024-08-06 16:32 | W.PN.UPDATE ---
Update Note
Progress Note Update
Talked with patient and daughter in the room and we reviewed her echo from 08/06/24 that showed EF 55% and moderate to severe MR with systolic flow reversal in the pulmonary veins with mitral regurgitation present and peak/mean 10/3 mmHg, the tissue
AVR has a peak/mean 29/16 mmHg and no aortic regurgitation, the tricuspid valve ring has mild TR with a PAP of 35 to 40 mmHg. The patient's daughter was able to pull up the patient's portal and I was able to compare this with the available GABRIEL
report that we had in our system from 07/05/2024, they report that the patient's daughter was able to pull up from the portal has more detail including that there was mild to moderate MR. While in the room with the patient the nurse practitioner from
her CT surgeon at [facility] called and we reviewed the echo and GABRIEL reports. I reviewed with the ANALYTICS INTERN that our plan is to check an outpatient echo in the next 2 to 4 weeks to reassess MR and she was in agreement with this plan. All questions answered
of patient and daughter. Additionally patient was orthostatic working with PT this afternoon and so we will hold the evening dose of Lasix 20 mg IV BID and reassess volume status in the morning. 31 minutes of critical care time in discussing
updated echo report and management plans, entering updated orders, communicating with nurse and also with talking to outpatient CT surgery ANALYTICS INTERN.
--- NOTE | 2024-08-06 16:42 | PTCARENOTE ---
Pt became lightheaded/dizzy when standing to work w/ PT - pt found to be hypotensive. Pt now sitting in chair and feels better - BP improved. Cards aware and will hold evening lasix dose.
[2024-08-06] MEDS: LASIX IV (16:43)
[2024-08-06] MEDS: ZETIA 10 MG PO (22:41)
[2024-08-06] MEDS: SENOKOT 17.2 MG PO (22:41)
[2024-08-07] VITALS (14 sets, daily range): BP systolic 98–124; BP diastolic 37–84; BMI 25.9
[2024-08-07] MEDS: CORGARD PO ×3 (00:43→21:00)
[2024-08-07] MEDS: ULTRAM 25 MG PO ×3 (03:26→22:55)
[2024-08-07 04:27] LABS: INR 1.79
[2024-08-07 04:42] LABS: ALT (SGPT) 21 U/L (0-35); AST (SGOT) 27 U/L (14-36); Albumin 3.8 g/dl (3.5-5.0); Alkaline Phosphatase 76 U/L (38-126); Blood Urea Nitrogen 19 mg/dl (7-17); Calcium 9.4 mg/dl (8.4-10.2); Carbon Dioxide 30 mmol/L (22-30); Chloride 102 mmol/L (98-107); Direct Bilirubin 0.1 mg/dl (0.0-0.4); Estimated Creatinine Clearance 49 ml/min; Glucose 93 mg/dl (70-99); Magnesium 2.2 mg/dl (1.6-2.3); Potassium 4.7 mmol/L (3.5-5.1); Sodium 138 mmol/L (135-145); Total Bilirubin 0.6 mg/dl (0.2-1.3); eGFR > 60.00
--- NOTE | 2024-08-07 04:54 | PTCARENOTE ---
Pt V paced on monitor. denies dizziness or lightheadedness. SBP in low 100s. Pt refused to take Nadolol pm dose. Stated that it will 'significantly lower my BP'. C/O mid chest post surgical pain, PRN meds given with positive effect. Pt ambulates
with assist x1. Call trinh in reach
[2024-08-07] MEDS: COLACE 100 MG PO ×2 (08:46→20:53)
[2024-08-07] MEDS: FARXIGA 10 MG PO (08:48)
[2024-08-07] MEDS: PEPCID 20 MG PO (08:48)
[2024-08-07] MEDS: ASPIR LOW (ENTERIC COATED) 81 MG PO (08:48)
[2024-08-07] MEDS: CORGARD 10 MG PO (08:48)
[2024-08-07] MEDS: MIRALAX PO ×2 (08:49→18:11)
[2024-08-07] MEDS: KLOR-CON PO (13:04)
--- NOTE | 2024-08-07 13:30 | W.PN.CARDCBS ---
Addendum entered and electronically signed by Taiwo Lee MD 08/07/24 17:32:
I saw and examined the patient.
The Director Of Partnerships's note was reviewed and I agree with the note.
Comment: GEN: No distress, awake, Ox3
HEENT: supple, anicteric, mmm
LUNGS: CTA, no wheezes/rales
CV: Reg, S1/S2, 2/6 syst apex, no gallop
ABD: soft, BS+, NT/ND
EXT: No edema
NEURO: Gross non-focal
SKIN: No rash
Plan:
She still has some positional orthostasis. Will continue to hold Lasix for another 24 hours likely restart in a.m. 20 mg daily.
We reviewed her echo. She does have significant mitral regurgitation. The hope is that this improves with diuresis and unloading her ventricle. She should have a repeat transthoracic echo in 1 month to reevaluate her mitral valve.
Continue nadolol, Farxiga, aspirin, and Coumadin.
She remains in sinus rhythm today.
Original Note:
Today's Communication / Plan
-
Likely restart Lasix 20 mg PO daily in AM
Impression / Plan
-
PCP: Dr. Arndt
Card: Dr. Abril Maxwell
CT surgeon: Dr. Mai at [facility]
Impression:
Admitted with SOB and acute HF 08/04/24
Acute on chronic hHFpEF
s/p Redo AVR and TV ring repair with small to moderate pleural effusions.
Possible atrial tachycardia on presentation
Recent heart block postop s/p [place] Aveir dual-chamber leadless pacemaker 07/27/2024
h/o bicuspid aortic valve AVR 2007 [facility]
recent bioprosthetic aortic valve degeneration, s/p bioprosthetic redo aortic valve ([facility]) tricuspid valve ring 07/24/2024
s/p CABG with SVG to RCA 2007
Intraoperative complication requiring temporary RVAD assistance at time of AVR 2007
Chronic HFpEF
Paroxysmal atrial fibrillation
s/p PVI at [facility]
Paroxysmal atrial flutter
s/p atrial flutter ablation 04/23/2017
h/o long QT syndrome seen on exercise only during previous stress test, intolerant to AAD in particular amiodarone, diagnosed elsewhere in the past
History of long QT especially with exercise and with amiodarone.
h/o PE
Pulmonary nodule
History of Lyme disease
History of Guillain-Valenzuela�
IBS
Nausea and usual postop pain
Echo 04/10/2024: EF 72%, stage II diastolic dysfunction, mild MR, #23 bovine bioprosthetic AVR peak/mean 50/31 mmHg, moderate aortic regurgitation pressure half-time 455 ms, mild to moderate TR with PAP 51 mmHg, no pericardial effusion
Echo 05/15/2024: Limited follow-up study, EF 55%, #23 bioprosthetic AVR with mean gradient 24 mmHg, there is moderate to moderate to severe aortic insufficiency and the pressure half-time across the valve 641 ms may underestimate the severity of
aortic insufficiency
GABRIEL 07/05/24: Well-seated bioprosthetic AVR with thickened leaflets and reduced excursion and evidence of moderate prosthetic stenosis, mild to moderate MR
Echo 08/06/2024: PM DH study, EF 55%, normal regional wall motion, moderate to severe MR with systolic flow reversal in the pulmonary veins with MR and peak/mean 10/3 mmHg, status post #23 bioprosthetic AVR with peak/mean 29/16 mmHg and no evidence of
aortic regurgitation, status was #32 tricuspid valve ring repair with PAP 35 to 40 mmHg
Cardiac catheterization 05/15/2024: Moderate aortic valve stenosis of bioprosthetic aortic valve. LVEDP 29. Stable coronary anatomy with patent SVG to mid/distal RCA. No coronary disease otherwise.
CT of the chest 08/04/2024: MODERATE-SIZED RIGHT and SMALL LEFT PLEURAL EFFUSIONS. Mild acute interstitial and alveolar cardiogenic pulmonary edema. MODERATE CARDIOMEGALY. Chronic granulomatous disease infection in the left upper lobe.
Plan:
-Patient previously had a complicated tissue AVR at [place] in 2007 and suffered an intraoperative complication requiring temporary RVAD assistance and then CABG with an SVG to the RCA. Patient then had progressive tissue AVR dysfunction and she
contemplated having surgery locally, but opted to be closer to family, her son, and had surgery at [facility] on 07/24/2024. Postop patient then had Samay[place] DC leadless PPM on 07/27/2024. Patient was discharged to home prior to postop echo and was home
for a few days before presenting to [facility] ER for admission for acute HF.
-Weight is down 1 lb overnight and as much as 7 lbs this admission depending on the accuracy of the admission weight from the ER. Patient reports some symptomatic improvement, but still feels she has FUCHS with walking beyond the limits of her room.
-Patient diuresing with Lasix 20 mg IV BID, but dose held starting on 08/06/2024 PM due to symptomatic orthostasis while working with PT that persists into the morning of 08/07/2024. Pending symptoms, labs and daily weights we will start Lasix 20 mg PO
daily in the morning. Of note patient was not taking a standing dose of Lasix just prior to this admission, but leading up to her recent surgery she was taking Lasix 20 mg daily..
-EF preserved by echo this admission.
-Outpatient dose of nadolol increased to 10 mg BID this admission
-Outpatient dose of Jardiance 10 mg daily was changed to Farxiga 10 mg daily due to formulary concerns, the patient should resume Jardiance 10 mg daily at time of discharge
-Patient was not taking MK/ARB/ARNI/aldosterone antagonist prior to admission and cannot start due to symptomatic orthostasis
-As noted on TTE report that was reviewed and summarized by me above from 08/06/2024, the tissue AVR and tricuspid valve ring repair appear to have normal and appropriate function, but there is evidence now of moderate to severe MR with systolic flow
reversal in the pulmonary veins. I was able to obtain the GABRIEL report from [facility] dated 07/05/2024 that described only mild to moderate MR. I talked with the AUTOMATION QA TESTER for the CT surgery service at [facility] in 08/06/2024 and she reports that patient was
discharged prior to planned post op TTE as she wanted to go home. Updated patient and her daughter in the room on 08/06/2024 and we made a plan to repeat TTE as an outpatient over the next month to reassess MR which may be improved in the setting of
euvolemia.
-Patient with h/o pAfib/flutter and has been SR this admission. Tele reviewed by me 08/07/24 shows SR
-Patient was previously on Eliquis, but this was changed to warfarin with a goal INR of 2-3 and this is presumably for a few months following valve surgery. Labs reviewed by me 08/07/2024 and the INR is 1.79. Patient was given warfarin 7 mg on
08/05/2024, patient was given 6 mg of warfarin on 08/06/2024 and will give additional dose of 6 mg 08/07/2024, ordered by me
-Troponin on admission was 0.065 and trending down thereafter, this was managed as a nonischemic myocardial injury troponin elevation given recent open heart surgery. She does not have coronary artery disease. RCA bypass was secondary to mechanical
complication
-ECG from 08/07/2024 reviewed by me and the QTc is 522 ms.
-Patient had device check of her Samayoa/[place] DC leadless PPM on 08/06/2024 and it seems she may have had atrial tachycardia on admission, repeat device check planned for upcoming office visit
-Patient would like to go to rehab before returning to her independent living situation and CM is working with her on options
Patient is status post high risk redo bioprosthetic aortic valve replacement and tricuspid valve ring at [facility]. Discharged 07/31/2024. She feels that she was volume overloaded on discharge and has had continued progressive shortness of breath.
Of note patient had heart block noted postop and underwent implant of dual-chamber leadless pacemaker system Sam[place] Aveir D. Patient with history of atrial arrhythmias as noted with sinus tachycardia/atrial tachycardia on admission. Acute on
chronic heart failure with elevated proBNP, pleural effusions and interstitial edema noted. Feeling better with diuresis. She however continues with postsurgical pain and nausea.
Of note patient has history of long QT noted with exercise previously and cannot take antiarrhythmic drug therapy including significant reaction to amiodarone.
Progress Note - Rn Wound
Subjective
Date of Service: August 07, 2024
She is tired, she has FUCHS walking any distance greater than within her room
Objective
Labs:
08/06/24 03:27
08/07/24 03:43
Labs
Hgb 8.6 g/dL (12.0-16.0) L 08/06/24 03:27
Hct 26.8 % (37.0-47.0) L 08/06/24 03:27
Plt Count 439 10^3/uL (130-400) H 08/06/24 03:27
PT 21.0 Sec (11.4-14.6) H 08/07/24 03:43
INR 1.79 08/07/24 03:43
Sodium 138 mmol/L (135-145) 08/07/24 03:43
Potassium 4.7 mmol/L (3.5-5.1) 08/07/24 03:43
BUN 19 mg/dl (7-17) H 08/07/24 03:43
Creatinine 0.8 mg/dL (0.6-1.0) 08/07/24 03:43
Glucose 93 mg/dl (70-99) 08/07/24 03:43
Troponins
08/04/24 08/05/24 08/05/24
21:17 03:50 10:22
Troponin I 0.065 H* 0.064 H* 0.058 H*
08/05/24
15:26
Troponin I Cancelled
Vital Signs and I&O:
Vital Signs
Temp Pulse Resp BP Pulse Ox
98.4 F 64 18 105/62 98
08/07/24 12:22 08/07/24 12:22 08/07/24 12:22 08/07/24 11:50 08/07/24 12:22
Vital Signs
Temp Pulse Resp BP Pulse Ox
98.4 F 64 18 105/62 98
08/07/24 12:22 08/07/24 12:22 08/07/24 12:22 08/07/24 11:50 08/07/24 12:22
Intake & Output
08/05/24 08/06/24 08/07/24 08/08/24
06:59 06:59 06:59 06:59
Intake Total 640 / 640 490 / 490 250 / 250
Output Total 1900 / 1900 1700 / 1700 1300 / 1300 300 / 300
Balance -1260 / -1260 -1210 / -1210 -1050 / -1050 -300 / -300
Physical Exam
Physical Exam
GEN: NAD. AAOx3
LUNGS: RA. No audible wheeze
CV: V paced on tele
EXT: Trace B/L LE edema
NEURO: Gross non-focal
SKIN: No rash
--- NOTE | 2024-08-07 15:24 | W.PN.HOSP.TC ---
Today's Communication/Plan
-
Repeat echocardiogram on 08/06 noted with progressed and now severe mitral regurgitation.
Lasix had been on hold due to marginal BP with plan to resume oral Lasix on 08/07.
Patient had not been on diuretics prior to this presentation.
Plan is to follow-up with echocardiogram as outpatient while on diuresis.
Redose Coumadin and follow INR (patient with bioprosthetic aortic valve on short-term postoperative anticoagulation)
Physical therapy assessment
Discharge planning likely to snf facility
Assessment / Plan
Assessment / Plan
A/P: Patient is a 78y F with PMH significant for ASCVD, A-Fib and s/p recent revision aortic valve replacement who presents to ED complaining of worsening SOB x 11 days.
Acute on Chronic HFpEF
Aortic Insufficiency s/p Revision AVR (07/24/24)
s/p Tricuspid Valve Repair
- Admit for further evaluation and treatment.
- LE edema, bilateral pleural effusions, increased BNP, etc c/w volume overload.
- Continue IV Lasix 20mg BID for now.
- Follow I/Os, daily weights, etc.
- Continue Jardiance.
- Cardiology evaluation appreciated.
08/06 Echo: Normal left ventricular chamber size. Abnormal (paradoxical) septal motion
consistent with postoperative status. Normal left ventricular systolic
function. Left ventricular ejection fraction is 55% by visual assessment.
Normal regional wall motion. Normal left ventricular wall thickness.
Pacer wire seen in right ventricle.
Moderate- Severe mitral regurgitation. Systolic flow reversal in the pulmonary
veins with mitral regurgitation present. Peak gradient 10mmHg/Mean gradient
3mmHg.
S/P 23mm Bovine Pericardial Magna bioprosthetic aortic valve - Peak gradient
29mmHg/Mean gradient 16mmHg. No aortic regurgitation is seen.
S/P 32mm Abbi ring - mild tricuspid regurgitation. Estimated pulmonary
artery pressure of 35-40 mmHg
Compared to prior echo from 2D May 2024, mean grad AVR was 24 mmHg
previously, TV and MV not assessed and there is now mod to severe MR and s/p TV
ring.
Probably transition to oral Lasix tomorrow 08/07
Respiratory status stable.
Has been off oxygen supplementation.
CT scan noted with right greater than left mild to moderate pleural effusion. Will continue to monitor
Complete Heart Block
s/p PPM Placement
- Developed heart block post-op ultimately requiring permanent pacemaker placement.
- EKG shows paced rhythm.
- Daughter reports pulse (on pulse oximeter) registered in the 50s at home.
- Monitor on telemetry for any bradyarrhythmia / PPM issues.
Blood Loss Anemia
- Improving per patient / daughter.
- Received PRBC infusion during hospitalization at [place].
- Discharge Hgb was 8.1g / dL. Now 9.3-->8.7
- Mild leukocytosis and thrombocytosis likely represent demargination / marrow response.
- Follow for continued increase / improvement.
Constipation
laxatives have not been effective, including 1 dose of Dulcolax supp, will order Fleets enema.
ASCVD
- Chest discomfort likely expected s/p recent sternotomy / surgery.
- Initial troponin mildly elevated - also likely expected.
- Follow for any significant increase in symptoms, troponin, etc.
- Continue usual CV med regimen including ASA, Zetia, etc.
- Continue post-op pain control with tramadol.
Paroxysmal Atrial Fibrillation / Flutter
- s/p multiple prior ablation procedures.
- Continue Coumadin for stroke risk reduction. INR 1.79
- Follow daily INR and adjust as needed, gave extra 2 mg 08/05 (total 7mg).INR remains subtherapeutic and will get extra 1 mg today (total 6mg)
DVT Prophylaxis
History of PE
- On Coumadin.
Code Status: Full
Evaluated with amarilis Bush in room and then full review with her ouside of room
Anticipated Discharge: 24 - 48 hours
Subjective/Interval History
-
Date of Service: August 07, 2024
Objective Data
-
Labs:
Laboratory Results
08/07/24
03:43
PT 21.0 H
INR 1.79
Sodium 138
Potassium 4.7
Chloride 102
Carbon Dioxide 30
BUN 19 H
Creatinine 0.8
Glucose 93
Calcium 9.4
Total Bilirubin 0.6
AST 27
ALT 21
Alkaline Phosphatase 76
Vital Signs:
Vital Signs
Temp Pulse Resp BP Pulse Ox
98.1 F 64 18 105/62 96
08/07/24 15:10 08/07/24 12:22 08/07/24 15:10 08/07/24 11:50 08/07/24 15:10
I&O
08/06/24 08/07/24 08/08/24
06:59 06:59 06:59
Intake Total 490 / 490 250 / 250
Output Total 1700 / 1700 1300 / 1300 900 / 900
Balance -1210 / -1210 -1050 / -1050 -900 / -900
Physical Exam
-
General: Well Developed, Well Nourished, No Apparent Distress and Conversant (very well spoken)
HEENT: Normocephalic, Atraumatic and Moist Mucous Membranes
Respiratory: Clear to Auscultation; Negative Wheezes, Rales or Rhonchi
Cardiac: Regular Rhythm, S1/S2 and Murmur (3/6 at apex)
Musculoskeletal: No Clubbing, No Cyanosis and No Edema
[2024-08-07] MEDS: TYLENOL 650 MG PO (16:31)
[2024-08-07] MEDS: COUMADIN 6 MG PO (18:08)
[2024-08-07] MEDS: ZETIA 10 MG PO (20:53)
[2024-08-07] MEDS: SENOKOT 17.2 MG PO (20:53)
[2024-08-08] VITALS (14 sets, daily range): BP systolic 94–115; BP diastolic 37–65; PULSE 63–85; O2SAT 98; BMI 25.8
[2024-08-08 03:43] LABS: INR 1.75; PT 20.6 Sec (11.4-14.6)
--- NOTE | 2024-08-08 03:48 | PTCARENOTE ---
Assumed care of the pt @ 1900 Pt is AAOx3 A paced- A/V paced on the monitor BP stable + FUCHS ambulates independently in the room call trinh within reach.
[2024-08-08 03:54] LABS: Blood Urea Nitrogen 16 mg/dl (7-17); Calcium 9.3 mg/dl (8.4-10.2); Carbon Dioxide 29 mmol/L (22-30); Chloride 104 mmol/L (98-107); Estimated Creatinine Clearance 56 ml/min; Glucose 92 mg/dl (70-99); Potassium 4.6 mmol/L (3.5-5.1); Sodium 140 mmol/L (135-145); eGFR > 60.00
[2024-08-08] MEDS: FARXIGA 10 MG PO (08:55)
[2024-08-08] MEDS: COLACE 100 MG PO ×2 (08:55→21:19)
[2024-08-08] MEDS: PEPCID 20 MG PO (08:56)
[2024-08-08] MEDS: CORGARD 10 MG PO (08:56)
[2024-08-08] MEDS: MIRALAX 17 GRAMS PO (08:56)
[2024-08-08] MEDS: KLOR-CON 20 MEQ PO (08:56)
[2024-08-08] MEDS: ASPIR LOW (ENTERIC COATED) 81 MG PO (08:56)
--- NOTE | 2024-08-08 10:07 | W.PN.CARDCBS ---
Addendum entered and electronically signed by Hung Garnett MD 08/08/24 15:06:
I saw and examined the patient.
The WAX CUTTER or PA's note was reviewed and I agree with the note.
Comment: General: Well developed, well nourished in NAD.
Neck: Supple, no JVD, HJR, carotids +2 B/L, no bruits bilaterally.
Heart: Non displaced PMI, RRR, no murmurs, No S3, S4, no rubs.
Lungs: Scattered rhonchi
Extremities: No clubbing, cyanosis or edema bilaterally.
Neuro: Grossly nonfocal, awake, alert and oriented x3.
She still complains of shortness of breath but is off of oxygen. Will give another dose of IV Lasix today and consider change to oral Lasix in a.m. Discussed with primary service. Likely needs rehab
Original Note:
Today's Communication / Plan
-
PT recommending rehab
Lasix 40 mg IV x1 now and then need to decide on dosing moving forward given orthostasis earlier this stay
Impression / Plan
-
PCP: Dr. rAndt
Card: Dr. Abril Maxwell
CT surgeon: Dr. Mai at [facility]
Impression:
Admitted with SOB and acute HF 08/04/24
Acute on chronic hHFpEF
s/p Redo AVR and TV ring repair with small to moderate pleural effusions.
Possible atrial tachycardia on presentation
Recent heart block postop s/p Samay[place] Aveir dual-chamber leadless pacemaker 07/27/2024
h/o bicuspid aortic valve AVR 2007 [facility]
recent bioprosthetic aortic valve degeneration, s/p bioprosthetic redo aortic valve ([facility]) tricuspid valve ring 07/24/2024
s/p CABG with SVG to RCA 2007
Intraoperative complication requiring temporary RVAD assistance at time of AVR 2007
Chronic HFpEF
Paroxysmal atrial fibrillation
s/p PVI at [facility]
Paroxysmal atrial flutter
s/p atrial flutter ablation 04/23/2017
h/o long QT syndrome seen on exercise only during previous stress test, intolerant to AAD in particular amiodarone, diagnosed elsewhere in the past
History of long QT especially with exercise and with amiodarone.
h/o PE
Pulmonary nodule
History of Lyme disease
History of Guillain-Valenzuela�
IBS
Nausea and usual postop pain
Echo 04/10/2024: EF 72%, stage II diastolic dysfunction, mild MR, #23 bovine bioprosthetic AVR peak/mean 50/31 mmHg, moderate aortic regurgitation pressure half-time 455 ms, mild to moderate TR with PAP 51 mmHg, no pericardial effusion
Echo 05/15/2024: Limited follow-up study, EF 55%, #23 bioprosthetic AVR with mean gradient 24 mmHg, there is moderate to moderate to severe aortic insufficiency and the pressure half-time across the valve 641 ms may underestimate the severity of
aortic insufficiency
GABRIEL 07/05/24: Well-seated bioprosthetic AVR with thickened leaflets and reduced excursion and evidence of moderate prosthetic stenosis, mild to moderate MR
Echo 08/06/2024: PM DH study, EF 55%, normal regional wall motion, moderate to severe MR with systolic flow reversal in the pulmonary veins with MR and peak/mean 10/3 mmHg, status post #23 bioprosthetic AVR with peak/mean 29/16 mmHg and no evidence of
aortic regurgitation, status was #32 tricuspid valve ring repair with PAP 35 to 40 mmHg
Cardiac catheterization 05/15/2024: Moderate aortic valve stenosis of bioprosthetic aortic valve. LVEDP 29. Stable coronary anatomy with patent SVG to mid/distal RCA. No coronary disease otherwise.
CT of the chest 08/04/2024: MODERATE-SIZED RIGHT and SMALL LEFT PLEURAL EFFUSIONS. Mild acute interstitial and alveolar cardiogenic pulmonary edema. MODERATE CARDIOMEGALY. Chronic granulomatous disease infection in the left upper lobe.
Plan:
-Patient previously had a complicated tissue AVR at [facility] in 2007 and suffered an intraoperative complication requiring temporary RVAD assistance and then CABG with an SVG to the RCA. Patient then had progressive tissue AVR dysfunction and she
contemplated having surgery locally, but opted to be closer to family, her son, and had surgery at [facility] on 07/24/2024. Postop patient then had Samayoa DC leadless PPM on 07/27/2024. Patient was discharged to home prior to postop echo and was home
for a few days before presenting to [facility] ER for admission for acute HF.
-More SOB overnight and less orthostatic so will try a dose of Lasix 40 mg IV x1 now, ordered by me. Patient diuresing with Lasix 20 mg IV BID, but then symptomatic orthostasis and doses held starting 08/06/24 PM. Of note patient was not taking a
standing dose of Lasix just prior to this admission, but leading up to her recent surgery she was taking Lasix 20 mg daily.
-EF preserved by echo this admission.
-Weight is stable overnight and down as much as 7 lbs this admission depending on the accuracy of the admission weight from the ER.
-Outpatient dose of nadolol increased to 10 mg BID this admission
-Outpatient dose of Jardiance 10 mg daily was changed to Farxiga 10 mg daily due to formulary concerns, the patient should resume Jardiance 10 mg daily at time of discharge
-Patient was not taking MK/ARB/ARNI/aldosterone antagonist prior to admission and will not start due to symptomatic orthostasis
-As noted on TTE report that was reviewed and summarized by me above from 08/06/2024, the tissue AVR and tricuspid valve ring repair appear to have normal and appropriate function, but there is evidence now of moderate to severe MR with systolic flow
reversal in the pulmonary veins. I was able to obtain the GABRIEL report from [facility] dated 07/05/2024 that described only mild to moderate MR. I talked with the WAX CUTTER for the CT surgery service at [facility] in 08/06/2024 and she reports that patient was
discharged prior to planned post op TTE as she wanted to go home. Updated patient and her daughter in the room on 08/06/2024 and we made a plan to repeat TTE as an outpatient over the next month to reassess MR which may be improved in the setting of
euvolemia.
-Patient with h/o pAfib/flutter and has been SR this admission. Tele reviewed by me 08/07/24 shows SR
-Patient was previously on Eliquis, but this was changed to warfarin with a goal INR of 2-3 and this is presumably for a few months following valve surgery. Labs reviewed by me 08/07/2024 and the INR is 1.79. Patient was given warfarin 7 mg on
08/05/2024, patient was given 6 mg of warfarin on 08/06/2024 and will give additional dose of 6 mg 08/07/2024, ordered by me
-Troponin on admission was 0.065 and trending down thereafter, this was managed as a nonischemic myocardial injury troponin elevation given recent open heart surgery. She does not have coronary artery disease. RCA bypass was secondary to mechanical
complication
-ECG from 08/07/2024 reviewed by me and the QTc is 522 ms.
-Patient had device check of her Samayoa/[place] DC leadless PPM on 08/06/2024 and it seems she may have had atrial tachycardia on admission, repeat device check planned for upcoming office visit
-Patient would like to go to rehab before returning to her independent living situation and CM is working with her on options. PT notes from 08/08/24 recommend rehab.
Patient is status post high risk redo bioprosthetic aortic valve replacement and tricuspid valve ring at [facility]. Discharged 07/31/2024. She feels that she was volume overloaded on discharge and has had continued progressive shortness of breath.
Of note patient had heart block noted postop and underwent implant of dual-chamber leadless pacemaker system Samayoa Aveir D. Patient with history of atrial arrhythmias as noted with sinus tachycardia/atrial tachycardia on admission. Acute on
chronic heart failure with elevated proBNP, pleural effusions and interstitial edema noted. Feeling better with diuresis. She however continues with postsurgical pain and nausea.
Of note patient has history of long QT noted with exercise previously and cannot take antiarrhythmic drug therapy including significant reaction to amiodarone.
Progress Note - [employer]
Subjective
Date of Service: August 08, 2024
She is tired and SOB
Objective
Labs:
08/06/24 03:27
08/08/24 03:00
Labs
Hgb 8.6 g/dL (12.0-16.0) L 08/06/24 03:27
Hct 26.8 % (37.0-47.0) L 08/06/24 03:27
Plt Count 439 10^3/uL (130-400) H 08/06/24 03:27
PT 20.6 Sec (11.4-14.6) H 08/08/24 03:00
INR 1.75 08/08/24 03:00
Sodium 140 mmol/L (135-145) 08/08/24 03:00
Potassium 4.6 mmol/L (3.5-5.1) 08/08/24 03:00
BUN 16 mg/dl (7-17) 08/08/24 03:00
Creatinine 0.7 mg/dL (0.6-1.0) 08/08/24 03:00
Glucose 92 mg/dl (70-99) 08/08/24 03:00
Troponins
08/05/24 08/05/24
10:22 15:26
Troponin I 0.058 H* Cancelled
Vital Signs and I&O:
Vital Signs
Temp Pulse Resp BP Pulse Ox
97.6 F 69 20 112/46 100
08/08/24 07:51 08/08/24 08:00 08/08/24 07:51 08/08/24 07:50 08/08/24 07:51
Vital Signs
Temp Pulse Resp BP Pulse Ox
97.6 F 69 20 112/46 100
08/08/24 07:51 08/08/24 08:00 08/08/24 07:51 08/08/24 07:50 08/08/24 07:51
Intake & Output
08/06/24 08/07/24 08/08/24 08/09/24
06:59 06:59 06:59 06:59
Intake Total 490 / 490 250 / 250
Output Total 1700 / 1700 1300 / 1300 1400 / 1400 550 / 550
Balance -1210 / -1210 -1050 / -1050 -1400 / -1400 -550 / -550
Physical Exam
Physical Exam
GEN: NAD. AAOx3
LUNGS: RA. No audible wheeze
CV: V paced on tele
EXT: Trace B/L LE edema
NEURO: Gross non-focal
SKIN: No rash
[2024-08-08] MEDS: LASIX 40 MG IV (11:42)
--- NOTE | 2024-08-08 12:34 | CM ---
CM following for DC planning needs.
Met w/ patient at bedside. We discussed DC plans. Preference is to go to [facility] Acute Rehab unit @ [place].
Referral was made for consideration. margarita Null ([phone]) requesting updated documentation from today.
PT-OT evaluated pt. today and I sent updated clinical info.
Pt. would like her son to transport her to rehab.
Goal is for acute rehab placement.
Awaiting acceptance + medical update.
No insurance auth required for transfer.
--- NOTE | 2024-08-08 15:01 | W.PN.HOSP.TC ---
Today's Communication/Plan
-
IV Lasix today.
PT assessment
Ambulatory pulse ox
Redose Coumadin
Assessment / Plan
Assessment / Plan
A/P: Patient is a 78y F with PMH significant for ASCVD, A-Fib and s/p recent revision aortic valve replacement who presents to ED complaining of worsening SOB x 11 days.
Acute on Chronic HFpEF
Aortic Insufficiency s/p Revision AVR (07/24/24)
s/p Tricuspid Valve Repair
- Admit for further evaluation and treatment.
- LE edema, bilateral pleural effusions, increased BNP, etc c/w volume overload.
- Has been on IV Lasix through 08/07 then held due to hypotension. Resume IV Lasix on 08/08. Monitor hemodynamics.
- Follow I/Os, daily weights, etc.
- Continue Jardiance.
- Cardiology evaluation appreciated.
08/06 Echo: Normal left ventricular chamber size. Abnormal (paradoxical) septal motion
consistent with postoperative status. Normal left ventricular systolic
function. Left ventricular ejection fraction is 55% by visual assessment.
Normal regional wall motion. Normal left ventricular wall thickness.
Pacer wire seen in right ventricle.
Moderate- Severe mitral regurgitation. Systolic flow reversal in the pulmonary
veins with mitral regurgitation present. Peak gradient 10mmHg/Mean gradient
3mmHg.
S/P 23mm Bovine Pericardial Magna bioprosthetic aortic valve - Peak gradient
29mmHg/Mean gradient 16mmHg. No aortic regurgitation is seen.
S/P 32mm Abbi ring - mild tricuspid regurgitation. Estimated pulmonary
artery pressure of 35-40 mmHg
Compared to prior echo from May 2024, mean grad AVR was 24 mmHg
previously, TV and MV not assessed and there is now mod to severe MR and s/p TV
ring.
Probably transition to oral Lasix tomorrow 08/07
Respiratory status stable.
Has been off oxygen supplementation.
CT scan noted with right greater than left mild to moderate pleural effusion. Will continue to monitor
Complete Heart Block
s/p PPM Placement
- Developed heart block post-op ultimately requiring permanent pacemaker placement.
- EKG shows paced rhythm.
- Daughter reports pulse (on pulse oximeter) registered in the 50s at home.
- Monitor on telemetry for any bradyarrhythmia / PPM issues.
Blood Loss Anemia
- Improving per patient / daughter.
- Received PRBC infusion during hospitalization at [facility].
- Discharge Hgb was 8.1g / dL. Now 9.3-->8.7
- Mild leukocytosis and thrombocytosis likely represent demargination / marrow response.
- Follow for continued increase / improvement.
Constipation
laxatives have not been effective, including 1 dose of Dulcolax supp, will order Fleets enema.
ASCVD
- Chest discomfort likely expected s/p recent sternotomy / surgery.
- Initial troponin mildly elevated - also likely expected.
- Follow for any significant increase in symptoms, troponin, etc.
- Continue usual CV med regimen including ASA, Zetia, etc.
- Continue post-op pain control with tramadol.
Paroxysmal Atrial Fibrillation / Flutter
- s/p multiple prior ablation procedures.
- Continue Coumadin for stroke risk reduction. INR 1.79
- Follow daily INR and adjust as needed, gave extra 2 mg 6 (total 7mg).INR remains subtherapeutic and will get extra 1 mg today (total 6mg)
DVT Prophylaxis
History of PE
- On Coumadin.
Code Status: Full
Evaluated with amarilis Bush in room and then full review with her ouside of room
Anticipated Discharge: 24 - 48 hours
Subjective/Interval History
-
Date of Service: August 08, 2024
Objective Data
-
Labs:
Laboratory Results
08/08/24
03:00
PT 20.6 H
INR 1.75
Sodium 140
Potassium 4.6
Chloride 104
Carbon Dioxide 29
BUN 16
Creatinine 0.7
Glucose 92
Calcium 9.3
Vital Signs:
Vital Signs
Temp Pulse Resp BP Pulse Ox
98.6 F 71 20 102/60 99
08/08/24 14:53 08/08/24 14:52 08/08/24 14:53 08/08/24 14:52 08/08/24 14:53
I&O
08/07/24 08/08/24 08/09/24
06:59 06:59 06:59
Intake Total 250 / 250
Output Total 1300 / 1300 1400 / 1400 1150 / 1150
Balance -1050 / -1050 -1400 / -1400 -1150 / -1150
Physical Exam
-
General: Well Developed, Well Nourished, No Apparent Distress and Conversant (very well spoken)
HEENT: Normocephalic, Atraumatic and Moist Mucous Membranes
Respiratory: Clear to Auscultation; Negative Wheezes, Rales or Rhonchi
Cardiac: Regular Rhythm, S1/S2 and Murmur (3/6 at apex)
Musculoskeletal: No Clubbing, No Cyanosis and No Edema
--- NOTE | 2024-08-08 16:56 | PTCARENOTE ---
Pt is AOx3, no complaints of pain or discomfort. Independent OOB. SR on tele monitor, VSS. worked with PT/OT today. Call trinh within reach.
[2024-08-08] MEDS: COUMADIN 5 MG PO (17:49)
[2024-08-08] MEDS: SENOKOT PO (21:19)
[2024-08-08] MEDS: ZETIA 10 MG PO (21:19)
[2024-08-08] MEDS: CORGARD PO (21:21)
[2024-08-08] MEDS: ULTRAM 25 MG PO (22:05)
[2024-08-09] VITALS (7 sets, daily range): BP systolic 93–106; BP diastolic 48–63; PULSE 89; BMI 25.0
[2024-08-09] MEDS: ULTRAM 25 MG PO (01:09)
--- NOTE | 2024-08-09 02:45 | PTCARENOTE ---
Received pt at shift change; AAOx, Vpaced on the monitor, tolerating RA with SpO2 95%. Steady gait witnessed into the bathroom,. denies dizziness or lightheadedness. Pt c/o 6/10 pain throughout her chest, mainly on the R side, pt states this is not
new for her, residual from recent procedures. PRN 25mg Tramadol administered, see MAR. Pt states PRN pain medication was unsuccessful, continues to rate pain 6/10. D/w covering CAN FEEDER, one time additional dose of 25mg Tramadol ordered and given with
positive effect, see MAR for details. Pt resting comfortably in bed at this time, safe environment maintained.
[2024-08-09 05:06] LABS: INR 1.61; PT 19.7 Sec (11.4-14.6)
[2024-08-09 05:29] LABS: Blood Urea Nitrogen 20 mg/dl (7-17); Carbon Dioxide 26 mmol/L (22-30); Chloride 107 mmol/L (98-107); Estimated Creatinine Clearance 56 ml/min; Glucose 89 mg/dl (70-99); Potassium 4.3 mmol/L (3.5-5.1); Sodium 138 mmol/L (135-145); eGFR > 60.00
[2024-08-09] MEDS: PEPCID 20 MG PO (08:31)
[2024-08-09] MEDS: CORGARD 10 MG PO (08:31)
[2024-08-09] MEDS: FARXIGA 10 MG PO (08:31)
[2024-08-09] MEDS: KLOR-CON 20 MEQ PO (08:31)
[2024-08-09] MEDS: COLACE 100 MG PO ×2 (08:31→22:13)
[2024-08-09] MEDS: ASPIR LOW (ENTERIC COATED) 81 MG PO (08:31)
[2024-08-09] MEDS: MIRALAX PO (08:32)
--- NOTE | 2024-08-09 09:22 | W.PN.CARDCBS ---
Addendum entered and electronically signed by Taiwo Lee MD 08/09/24 12:14:
I saw and examined the patient.
The Information Security Analyst's note was reviewed and I agree with the note.
Comment:
GEN: No distress, awake, Ox3
HEENT: supple, anicteric, mmm
LUNGS: CTA, no wheezes/rales
CV: Reg, S1/S2, 1/6 syst LSB, no gallop
ABD: soft, BS+, NT/ND
EXT: No edema
NEURO: Gross non-focal
SKIN: No rash
Plan:
She is overall improving. Orthostasis seems better. Will use Lasix 20 mg daily and decrease nadolol to 10 mg daily.
Continue Coumadin. Goal INR 2-3.
Stable for discharge from cardiology standpoint. Will arrange follow-up.
Will need to reassess mitral valve as outpatient in 1 month. Hopefully with diuresis the mitral valve improves.
Original Note:
Today's Communication / Plan
-
Continue to follow BP closely
Continue nadolol 10mg daily as she has not been getting PM doses.
Will transition to PO lasix 20mg daily.
Continue Coumadin
Follow up arranged.
Impression / Plan
-
PCP: Dr. Arndt
Card: Dr. Abril Maxwell
CT surgeon: Dr. Mai at [facility]
Impression:
Admitted with SOB and acute HF 08/04/24
Acute on chronic HFpEF
s/p redo AVR and TV ring repair with small to moderate pleural effusions.
Possible atrial tachycardia on presentation
Recent heart block postop s/p [place] Aveir dual-chamber leadless pacemaker 07/27/2024
h/o bicuspid aortic valve AVR 2007 [facility]
recent bioprosthetic aortic valve degeneration, s/p bioprosthetic redo aortic valve ([facility]) tricuspid valve ring 07/24/2024
s/p CABG with SVG to RCA 2007
Intraoperative complication requiring temporary RVAD assistance at time of AVR 2007
Chronic HFpEF
Paroxysmal atrial fibrillation
s/p PVI at [facility]
Paroxysmal atrial flutter
s/p atrial flutter ablation 04/23/2017
h/o long QT syndrome seen on exercise only during previous stress test, intolerant to AAD in particular amiodarone, diagnosed elsewhere in the past
History of long QT especially with exercise and with amiodarone.
h/o PE
Pulmonary nodule
History of Lyme disease
History of Guillain-Valenzuela�
IBS
Nausea and usual postop pain
Echo 04/10/2024: EF 72%, stage II diastolic dysfunction, mild MR, #23 bovine bioprosthetic AVR peak/mean 50/31 mmHg, moderate aortic regurgitation pressure half-time 455 ms, mild to moderate TR with PAP 51 mmHg, no pericardial effusion
Echo 05/15/2024: Limited follow-up study, EF 55%, #23 bioprosthetic AVR with mean gradient 24 mmHg, there is moderate to moderate to severe aortic insufficiency and the pressure half-time across the valve 641 ms may underestimate the severity of
aortic insufficiency
GABRIEL 07/05/24: Well-seated bioprosthetic AVR with thickened leaflets and reduced excursion and evidence of moderate prosthetic stenosis, mild to moderate MR
Echo 08/06/2024: PM DH study, EF 55%, normal regional wall motion, moderate to severe MR with systolic flow reversal in the pulmonary veins with MR and peak/mean 10/3 mmHg, status post #23 bioprosthetic AVR with peak/mean 29/16 mmHg and no evidence of
aortic regurgitation, status was #32 tricuspid valve ring repair with PAP 35 to 40 mmHg
Cardiac catheterization 05/15/2024: Moderate aortic valve stenosis of bioprosthetic aortic valve. LVEDP 29. Stable coronary anatomy with patent SVG to mid/distal RCA. No coronary disease otherwise.
CT of the chest 08/04/2024: MODERATE-SIZED RIGHT and SMALL LEFT PLEURAL EFFUSIONS. Mild acute interstitial and alveolar cardiogenic pulmonary edema. MODERATE CARDIOMEGALY. Chronic granulomatous disease infection in the left upper lobe.
Plan:
-Admitted with SOB and acute heart failure exacerbation.
-She has h/o complicated tissue AVR at [facility] in 2007 and suffered intraoperative complication requiring temporary RVAD assistance and then CABG with an SVG to the RCA. Patient then had progressive tissue AVR dysfunction and had surgery at [facility] on
07/24/2024. Postop patient then had Samayoa DC leadless PPM on 07/27/2024.
-Echo 08/06/2024 noted EF 55% with moderate to severe MR.
-Unable to obtain GABRIEL report from [facility] dated 07/05 that reportedly showed only mild-mod MR, but our team spoke w/ MACHINE SET UP OPERATOR PAPER GOODS for CT surgery at [facility] and she reported that the patient was discharged prior to planned post-op TTE as she wanted to go home.
Will plan to repeat TTE as OP in the next month to reassess MR which may be improved in the setting of euvolemia.
-Was diuresed with IV lasix earlier in admission, but then developed orthostasis and diuretics were held. Given another dose of IV lasix 40mg x1 on 08/08.
-Weight down 5lbs overnight, down to 145 lbs 08/09.
-Creat stable at 0.7. Continue daily weights, I&Os.
-Still has some slight SOB, but much improved. Will transition to PO lasix 20mg daily. Was not taking lasix prior to arrival.
-Check BMP in 1 week.
-Continue OP nadalol. Has been ordered 10mg BID, however has only been taking once daily. With orthostasis and starting PO lasix, will continue at 10mg daily for now.
-Jardiance changed to Farxiga due to formulary while hospitalized. Will restart Jardiance 10mg daily at discharge.
-No MK/ARB/ARNI/Aldosterone antagonist due to orthostasis.
-Known h/o paroxysmal atrial fibrillation/flutter. Remains in SR this admission.
-Previously on Eliquis, however is now on warfarin post-op w/ goal INR 2-3. INR 6/4 is 1.61.
-Follow up arranged.
Patient is status post high risk redo bioprosthetic aortic valve replacement and tricuspid valve ring at [facility]. Discharged 07/31/2024. She feels that she was volume overloaded on discharge and has had continued progressive shortness of breath.
Of note patient had heart block noted postop and underwent implant of dual-chamber leadless pacemaker system Samayoa Talita Raman. Patient with history of atrial arrhythmias as noted with sinus tachycardia/atrial tachycardia on admission. Acute on
chronic heart failure with elevated proBNP, pleural effusions and interstitial edema noted. Feeling better with diuresis. She however continues with postsurgical pain and nausea.
Of note patient has history of long QT noted with exercise previously and cannot take antiarrhythmic drug therapy including significant reaction to amiodarone.
Progress Note - [employer]
Subjective
Date of Service: August 09, 2024
Still some SOB, but improving. No longer on O2
Objective
Labs:
08/06/24 03:27
08/09/24 04:38
Labs
Hgb 8.6 g/dL (12.0-16.0) L 08/06/24 03:27
Hct 26.8 % (37.0-47.0) L 08/06/24 03:27
Plt Count 439 10^3/uL (130-400) H 08/06/24 03:27
PT 19.7 Sec (11.4-14.6) H 08/09/24 04:38
INR 1.61 08/09/24 04:38
Sodium 138 mmol/L (135-145) 08/09/24 04:38
Potassium 4.3 mmol/L (3.5-5.1) 08/09/24 04:38
BUN 20 mg/dl (7-17) H 08/09/24 04:38
Creatinine 0.7 mg/dL (0.6-1.0) 08/09/24 04:38
Glucose 89 mg/dl (70-99) 08/09/24 04:38
Vital Signs and I&O:
Vital Signs
Temp Pulse Resp BP Pulse Ox
97.9 F 70 14 102/63 96
08/09/24 07:00 08/09/24 09:00 08/09/24 07:00 08/09/24 07:00 08/09/24 07:00
Vital Signs
Temp Pulse Resp BP Pulse Ox
97.9 F 70 14 102/63 96
08/09/24 07:00 08/09/24 09:00 08/09/24 07:00 08/09/24 07:00 08/09/24 07:00
Intake & Output
08/07/24 08/08/24 08/09/24 08/10/24
06:59 06:59 06:59 06:59
Intake Total 250 / 250
Output Total 1300 / 1300 1400 / 1400 2125 / 2125
Balance -1050 / -1050 -1400 / -1400 -2125 / -2125
Physical Exam
Physical Exam
GEN: No distress, awake, alert, oriented x3
HEENT: supple, anicteric, mmm
LUNGS: CTA b/l, no wheezes/rales
CV: Reg, S1/S2, no murmur
EXT: No clubbing or cyanosis. Trace LE edema b/l
NEURO: Gross non-focal
SKIN: Warm, dry, no rash
--- NOTE | 2024-08-09 11:48 | CM ---
CM following for DC planning needs.
Met w/ patient at bedside. Reviewed DC plan for rehab @ [facility].
I have called [facility], [place] @ [phone]. She has received all clinical information and is awaiting input from her Attg. .
Awaiting call back from her.
Hope to coordinate transfer to [facility] once stable.
--- NOTE | 2024-08-09 15:37 | W.PN.HOSP.TC ---
Today's Communication/Plan
-
Oral lasix
BB to once daily
compression hose
ok to transfer to tele if bed needed
plan d/c to facility tomorrow
Assessment / Plan
Assessment / Plan
A/P: Patient is a 78y F with PMH significant for ASCVD, A-Fib and s/p recent revision aortic valve replacement who presents to ED complaining of worsening SOB x 11 days.
Acute on Chronic HFpEF
Aortic Insufficiency s/p Revision AVR (07/24/24)
s/p Tricuspid Valve Repair
- LE edema, bilateral pleural effusions, increased BNP, etc c/w volume overload.
- Has been on IV Lasix through 08/07 then held due to hypotension. s/p one time dose IV Lasix on 08/08. Monitor hemodynamics.
- Cardiology evaluation appreciated.
08/06 Echo reviewed
on RA
Reached out to cardiology MARIA
- transition to oral lasix
- Follow I/Os, daily weights, etc.
- Continue Jardiance.
On nadolol but refused at night (low BP) - changed to once daily per cards
compression hose
Complete Heart Block
s/p PPM Placement
- Developed heart block post-op ultimately requiring permanent pacemaker placement.
- EKG shows paced rhythm.
- Daughter reports pulse (on pulse oximeter) registered in the 50s at home.
- Monitor on telemetry for any bradyarrhythmia / PPM issues.
Blood Loss Anemia
- Improving per patient / daughter.
- Received PRBC infusion during hospitalization at [place].
- Discharge Hgb was 8.1g / dL. Now 9.3-->8.7
- Mild leukocytosis and thrombocytosis likely represent demargination / marrow response.
- Follow for continued increase / improvement.
Constipation
bowel regimen
ASCVD
- Chest discomfort likely expected s/p recent sternotomy / surgery.
- Initial troponin mildly elevated - also likely expected.
- Follow for any significant increase in symptoms, troponin, etc.
- Continue usual CV med regimen including ASA, Zetia, etc.
- Continue post-op pain control with tramadol.
Paroxysmal Atrial Fibrillation / Flutter
- s/p multiple prior ablation procedures.
- Continue Coumadin for stroke risk reduction.
- Follow daily INR and adjust as needed, gave extra 2 mg 6/ (total 7mg) and 6/.
INR 1.6 continue to monitor, goal 2-3
DVT Prophylaxis
History of PE
- On Coumadin.
Code Status: Full
Anticipated Discharge: Within 24 hours
Subjective/Interval History
-
Date of Service: August 09, 2024
Feeling well denies acute issues overnight
Objective Data
-
Labs:
Laboratory Results
08/09/24
04:38
PT 19.7 H
INR 1.61
Sodium 138
Potassium 4.3
Chloride 107
Carbon Dioxide 26
BUN 20 H
Creatinine 0.7
Glucose 89
Calcium 9.0
Vital Signs:
Vital Signs
Temp Pulse Resp BP Pulse Ox
97.4 F 66 16 100/62 99
08/09/24 15:17 08/09/24 12:00 08/09/24 15:17 08/09/24 10:58 08/09/24 15:17
I&O
08/08/24 08/09/24 08/10/24
06:59 06:59 06:59
Intake Total 360 / 360
Output Total 1400 / 1400 2124 100 / 100
Balance -1400 / -1400 -2124 260 / 260
Review of Systems
-
History Source: Patient
All other systems: Reviewed and negative
Physical Exam
-
General: Well Developed, Well Nourished, No Apparent Distress and Comfortable
HEENT: Moist Mucous Membranes, Anicteric and PERRLA
Respiratory: Rales; Negative Wheezes or Rhonchi
Cardiac: Regular Rhythm and Murmur
GI: Soft, Nontender, Nondistended and Normal Bowel Sounds
Musculoskeletal: No Clubbing, No Cyanosis, Edema, Right Lower Extrem and Edema, Left Lower Extrem
Skin: Warm and Dry; Negative Rash, Ulcers or Lesions
Neuro: AO x 3
Hematologic / Lymphatic: No Lymphadenopathy
Psych: Calm
Data Reviewed
-
Labs: Labs Reviewed by me and Discussed with Patient
[2024-08-09] MEDS: COUMADIN 2 MG PO (17:27)
[2024-08-09] MEDS: COUMADIN 5 MG PO (17:28)
[2024-08-09] MEDS: ULTRAM 50 MG PO (22:13)
[2024-08-09] MEDS: SENOKOT 17.2 MG PO (22:13)
[2024-08-09] MEDS: ZETIA 10 MG PO (22:13)
[2024-08-10] VITALS (8 sets, daily range): BP systolic 94–117; BP diastolic 54–67; PULSE 61; O2SAT 99; BMI 25.1
--- NOTE | 2024-08-10 01:25 | PTCARENOTE ---
Pt AV paced on monitor.Tramadol PRN given for surgical chest pain. Pt independent in the room. Call trinh in reach
[2024-08-10] MEDS: ULTRAM 25 MG PO ×2 (04:22→21:13)
[2024-08-10 04:41] LABS: INR 1.53; PT 18.9 Sec (11.4-14.6)
[2024-08-10] MEDS: KLOR-CON 20 MEQ PO (08:41)
[2024-08-10] MEDS: FARXIGA 10 MG PO (08:42)
[2024-08-10] MEDS: ASPIR LOW (ENTERIC COATED) 81 MG PO (08:42)
[2024-08-10] MEDS: PEPCID 20 MG PO (08:42)
[2024-08-10] MEDS: LASIX 20 MG PO (08:43)
[2024-08-10] MEDS: COLACE 100 MG PO ×2 (08:43→21:13)
[2024-08-10] MEDS: MIRALAX PO (08:43)
[2024-08-10] MEDS: CORGARD 10 MG PO (08:45)
--- NOTE | 2024-08-10 09:32 | PTCARENOTE ---
Rec'd Pt A,A+OX3 s/p card cath. Denies pain. R femoral dsg D+I. R groin soft on palpation. + DP pulse.
--- NOTE | 2024-08-10 09:48 | W.PN.CARDCBS ---
Addendum entered and electronically signed by Taiwo Lee MD 08/10/24 10:56:
I saw and examined the patient.
The Shearing Shed Hand's note was reviewed and I agree with the note.
Comment:
GEN: No distress, awake, Ox3
HEENT: supple, anicteric, mmm
LUNGS: scatt rhonchi
CV: Reg, S1/S2, 1/6 syst apex, S3+
ABD: soft, BS+, NT/ND
EXT: No edema
NEURO: Gross non-focal
SKIN: No rash
She had more shortness of breath this morning. Will give IV Lasix today and hold on transfer to rehab.
She may need Lasix 40 mg daily as outpatient.
Check repeat proBNP. Pending these results would consider repeat chest x-ray.
Continue Coumadin. Continue nadolol and Farxiga.
Original Note:
Today's Communication / Plan
-
IV lasix again today
repeat proBNP. consider repeat CXR
ambulate
7.5mg coumadin tonight as INR subtherapeutic
Impression / Plan
-
PCP: Dr. Arndt
Card: Dr. Abril Maxwell
CT surgeon: Dr. Mai at [facility]
Impression:
Admitted with SOB and acute HF 08/04/24
Acute on chronic HFpEF
s/p redo AVR and TV ring repair with small to moderate pleural effusions.
Possible atrial tachycardia on presentation
Recent heart block postop s/p [place]ay[place] Aveir dual-chamber leadless pacemaker 07/27/2024
h/[facility]
recent bioprosthetic aortic valve degeneration, s/p bioprosthetic redo aortic valve ([facility]) tricuspid valve ring 07/24/2024
s/p CABG with SVG to RCA 2007
Intraoperative complication requiring temporary RVAD assistance at time of AVR 2007
Chronic HFpEF
Paroxysmal atrial fibrillation
s/p PVI at [facility]
Paroxysmal atrial flutter
s/p atrial flutter ablation 04/23/2017
h/o long QT syndrome seen on exercise only during previous stress test, intolerant to AAD in particular amiodarone, diagnosed elsewhere in the past
History of long QT especially with exercise and with amiodarone.
h/o PE
Pulmonary nodule
History of Lyme disease
History of Guillain-Valenzuela�
IBS
Nausea and usual postop pain
Echo 04/10/2024: EF 72%, stage II diastolic dysfunction, mild MR, #23 bovine bioprosthetic AVR peak/mean 50/31 mmHg, moderate aortic regurgitation pressure half-time 455 ms, mild to moderate TR with PAP 51 mmHg, no pericardial effusion
Echo 05/15/2024: Limited follow-up study, EF 55%, #23 bioprosthetic AVR with mean gradient 24 mmHg, there is moderate to moderate to severe aortic insufficiency and the pressure half-time across the valve 641 ms may underestimate the severity of
aortic insufficiency
GABRIEL 07/05/24: Well-seated bioprosthetic AVR with thickened leaflets and reduced excursion and evidence of moderate prosthetic stenosis, mild to moderate MR
Echo 08/06/2024: PM DH study, EF 55%, normal regional wall motion, moderate to severe MR with systolic flow reversal in the pulmonary veins with MR and peak/mean 10/3 mmHg, status post #23 bioprosthetic AVR with peak/mean 29/16 mmHg and no evidence of
aortic regurgitation, status was #32 tricuspid valve ring repair with PAP 35 to 40 mmHg
Cardiac catheterization 05/15/2024: Moderate aortic valve stenosis of bioprosthetic aortic valve. LVEDP 29. Stable coronary anatomy with patent SVG to mid/distal RCA. No coronary disease otherwise.
CT of the chest 08/04/2024: MODERATE-SIZED RIGHT and SMALL LEFT PLEURAL EFFUSIONS. Mild acute interstitial and alveolar cardiogenic pulmonary edema. MODERATE CARDIOMEGALY. Chronic granulomatous disease infection in the left upper lobe.
Plan:
-She has h/o complicated tissue AVR at [place] in 2007 and suffered intraoperative complication requiring temporary RVAD assistance and then CABG with an SVG to the RCA. Patient then had progressive tissue AVR dysfunction and had surgery at [facility] on
07/24/2024. Postop patient then had Samayoa DC leadless PPM on 07/27/2024. She presented with acute heart failure exacerbation.
-She was diuresed with improvement. Yesterday Lasix was held due to orthostasis/balance issues, and if accurate weight up 1 pound overnight. She reports she is more short of breath today. received 20mg po lasix without improvement. ordered IV
lasix 20mg now. Cr stable. would likely plan to DC on po lasix 40mg daily, was not discharged on lasix post op.
-check repeat proBNP. CXR from admission with B/L pleural effusions, consider repeat
-Echo 08/06/2024 noted EF 55% with moderate to severe MR.
-Unable to obtain GABRIEL report from [facility] dated 07/05 that reportedly showed only mild-mod MR, but our team spoke w/ TELEPHONE SUPERVISOR for CT surgery at [facility] and she reported that the patient was discharged prior to planned post-op TTE as she wanted to go home.
Will plan to repeat TTE as OP in the next month to reassess MR which may be improved in the setting of euvolemia.
-Check BMP in 1 week.
-Continue OP nadalol. Has been ordered 10mg BID, however has only been taking once daily. With orthostasis and starting PO lasix, will continue at 10mg daily for now.
-Jardiance changed to Farxiga due to formulary while hospitalized. Will restart Jardiance 10mg daily at discharge.
-No MK/ARB/ARNI/Aldosterone antagonist due to orthostasis.
-Known h/o paroxysmal atrial fibrillation/flutter. in av paced rhythm on tele
-Previously on Eliquis, however is now on warfarin post-op w/ goal INR 2-3. INR 6/6 1.53. was on 5mg coumadin prior to admission. will give 7.5mg tonight and follow INR.
-Cardiac follow up arranged.
-d/w nursing, CM
Patient is status post high risk redo bioprosthetic aortic valve replacement and tricuspid valve ring at [facility]. Discharged 07/31/2024. She feels that she was volume overloaded on discharge and has had continued progressive shortness of breath.
Of note patient had heart block noted postop and underwent implant of dual-chamber leadless pacemaker system [place] Aveir D. Patient with history of atrial arrhythmias as noted with sinus tachycardia/atrial tachycardia on admission. Acute on
chronic heart failure with elevated proBNP, pleural effusions and interstitial edema noted. Feeling better with diuresis. She however continues with postsurgical pain and nausea.
Of note patient has history of long QT noted with exercise previously and cannot take antiarrhythmic drug therapy including significant reaction to amiodarone.
Progress Note - Uniforms Sales Representative
Subjective
Date of Service: August 10, 2024
with worsening SOB this AM. no CP
Objective
Labs:
08/06/24 03:27
08/09/24 04:38
Labs
Hgb 8.6 g/dL (12.0-16.0) L 08/06/24 03:27
Hct 26.8 % (37.0-47.0) L 08/06/24 03:27
Plt Count 439 10^3/uL (130-400) H 08/06/24 03:27
PT 18.9 Sec (11.4-14.6) H 08/10/24 04:18
INR 1.53 08/10/24 04:18
Sodium 138 mmol/L (135-145) 08/09/24 04:38
Potassium 4.3 mmol/L (3.5-5.1) 08/09/24 04:38
BUN 20 mg/dl (7-17) H 08/09/24 04:38
Creatinine 0.7 mg/dL (0.6-1.0) 08/09/24 04:38
Glucose 89 mg/dl (70-99) 08/09/24 04:38
Vital Signs and I&O:
Vital Signs
Temp Pulse Resp BP Pulse Ox
98.5 F 65 16 106/51 97
08/10/24 07:25 08/10/24 04:00 08/10/24 07:25 08/09/24 22:28 08/10/24 07:25
Vital Signs
Temp Pulse Resp BP Pulse Ox
98.5 F 65 16 106/51 97
08/10/24 07:25 08/10/24 04:00 08/10/24 07:25 08/09/24 22:28 08/10/24 07:25
Intake & Output
08/08/24 08/09/24 08/10/24 08/11/24
07:59 07:59 07:59 07:59
Intake Total 1090 / 1090
Output Total 1100 / 1100 2125 / 2125 975 / 975
Balance -1100 / -1100 -2125 / -2125 115 / 115
Physical Exam
Physical Exam
GEN: No distress, awake, alert, oriented x3. sitting in chair
HEENT: supple, anicteric, mmm, eomi
LUNGS: Decreased RLB, no wheezes
CV: Reg, S1/S2, 2/6 murmur
ABD: soft, BS+, NT/ND
EXT: No cyanosis, clubbing. trace edema of B/L LE
NEURO: Gross non-focal
SKIN: Warm, pink, dry. No rash. Sternotomy incision healing
[2024-08-10] MEDS: LASIX 20 MG IV (10:17)
--- NOTE | 2024-08-10 11:07 | CM ---
CM following for DC planning needs.
Met w/ patient at bedside and spoke w/ Attending MD + Cardiology PA. Pt. is not medically stable for transfer today to [facility].
Spoke w/ margarita Null @ [facility]/ [phone]. Preference for admission to [facility] on Tuesday.
This was discussed with patient and she is agreeable.
Will follow up with [facility] on Tuesday, if stable.
Will cont. to follow.
[2024-08-10 12:50] LABS: NT-proBNP 1980 pg/ml
--- NOTE | 2024-08-10 14:55 | W.PN.HOSP.TC ---
Today's Communication/Plan
-
IV Lasix
Warfarin additional dose
Chest x-ray
Assessment / Plan
Assessment / Plan
A/P: Patient is a 78y F with PMH significant for ASCVD, A-Fib and s/p recent revision aortic valve replacement who presents to ED complaining of worsening SOB x 11 days.
Acute on Chronic HFpEF
Aortic Insufficiency s/p Revision AVR (07/24/24)
s/p Tricuspid Valve Repair
- LE edema, bilateral pleural effusions, increased BNP, etc c/w volume overload.
- Has been on IV Lasix through 08/07 then held due to hypotension. s/p one time dose IV Lasix on 08/08. Monitor hemodynamics.
- Cardiology evaluation appreciated.
08/06 Echo reviewed
on RA
Discussed with cardiology given that her shortness of breath returned we will continue to diurese with IV Lasix one-time dose
- transition to oral lasix when medically ready
BNP was repeated and was still elevated at 1979, check repeat chest x-ray
- Follow I/Os, daily weights, etc.
- Continue Jardiance.
On nadolol but refused at night (low BP) - changed to once daily per cards
compression hose
Complete Heart Block
s/p PPM Placement
- Developed heart block post-op ultimately requiring permanent pacemaker placement.
- EKG shows paced rhythm.
- Daughter reports pulse (on pulse oximeter) registered in the 50s at home.
- Monitor on telemetry for any bradyarrhythmia / PPM issues.
Blood Loss Anemia
- Improving per patient / daughter.
- Received PRBC infusion during hospitalization at [place].
- Discharge Hgb was 8.1g / dL. Now 9.3-->8.7
- Mild leukocytosis and thrombocytosis likely represent demargination / marrow response.
- Follow for continued increase / improvement.
Constipation
bowel regimen
ASCVD
- Chest discomfort likely expected s/p recent sternotomy / surgery.
- Initial troponin mildly elevated - also likely expected.
- Follow for any significant increase in symptoms, troponin, etc.
- Continue usual CV med regimen including ASA, Zetia, etc.
- Continue post-op pain control with tramadol.
Paroxysmal Atrial Fibrillation / Flutter
- s/p multiple prior ablation procedures.
- Continue Coumadin for stroke risk reduction.
- Follow daily INR and adjust as needed, gave extra 2 mg 08/05 (total 7mg) and 08/08.
INR 1.53, additional dose of warfarin given, continue to monitor, goal 2-3
DVT Prophylaxis
History of PE
- On Coumadin.
Code Status: Full
Anticipated Discharge: 24 - 48 hours
Subjective/Interval History
-
Date of Service: August 10, 2024
Patient woke up with shortness of breath but at the time of my exam felt better
Objective Data
-
Labs:
Laboratory Results
08/10/24
04:18
PT 18.9 H
INR 1.53
Vital Signs:
Vital Signs
Temp Pulse Resp BP Pulse Ox
97.7 F 72 16 115/58 99
08/10/24 11:25 08/10/24 14:00 08/10/24 11:25 08/10/24 11:15 08/10/24 11:25
I&O
08/09/24 08/10/24 08/11/24
06:59 06:59 06:59
Intake Total 1090 / 1090
Output Total 2124 975 / 975 1150 / 1150
Balance -2124 -2124 115 / 115 -1150 / -1150
Review of Systems
-
History Source: Patient
All other systems: Reviewed and negative
Physical Exam
-
General: Well Developed, No Apparent Distress and Comfortable
HEENT: Moist Mucous Membranes, Anicteric and PERRLA
Respiratory: Rales and Non Labored Respirations; Negative Wheezes or Rhonchi
Cardiac: Regular Rhythm, S1/S2 and Murmur
GI: Soft, Nontender, Nondistended and Normal Bowel Sounds
Musculoskeletal: No Clubbing, No Cyanosis, Edema, Right Lower Extrem and Edema, Left Lower Extrem
Skin: Warm and Dry; Negative Rash, Ulcers or Lesions
Neuro: Awake and AO x 3
Hematologic / Lymphatic: No Lymphadenopathy
Psych: Calm
Data Reviewed
-
Labs: Labs Reviewed by me
[2024-08-10] MEDS: COUMADIN 5 MG PO (17:46)
[2024-08-10] MEDS: COUMADIN 2.5 MG PO (17:47)
[2024-08-10] MEDS: ZETIA 10 MG PO (21:13)
[2024-08-10] MEDS: SENOKOT 17.2 MG PO (21:13)
[2024-08-11] VITALS (8 sets, daily range): BP systolic 98–119; BP diastolic 47–66; PULSE 65; O2SAT 94; BMI 24.8
[2024-08-11] MEDS: TYLENOL 650 MG PO ×2 (05:07→20:22)
[2024-08-11 05:27] LABS: Hematocrit 27.1 % (37.0-47.0); Hemoglobin 8.9 g/dL (12.0-16.0); Mean Corp Hgb Conc. 32.8 g/dL (33.0-37.0); Mean Corpuscular Hgb 31.6 pg (27.0-31.0); Mean Corpuscular Volume 96.1 fL (81.0-99.0); Mean Platelet Volume 10.3 fL (7.4-10.4); Platelet Count 383 10^3/uL (130-400); Red Blood Cell Count 2.82 10^6/uL (4.20-5.40); Red Cell Dist. Width 13.4 % (11.5-14.5); White Blood Cell Count 6.9 10^3/uL (4.8-10.8)
[2024-08-11 05:33] LABS: INR 1.53; PT 18.7 Sec (11.4-14.6)
[2024-08-11 05:48] LABS: Blood Urea Nitrogen 20 mg/dl (7-17); Calcium 9.5 mg/dl (8.4-10.2); Carbon Dioxide 27 mmol/L (22-30); Chloride 106 mmol/L (98-107); Estimated Creatinine Clearance 56 ml/min; Glucose 90 mg/dl (70-99); Potassium 4.3 mmol/L (3.5-5.1); Sodium 139 mmol/L (135-145); eGFR > 60.00
--- NOTE | 2024-08-11 06:28 | PTCARENOTE ---
Pt AV paced on monitor. In am c/o mild surgical site chest pain. Tylenol PRn given and effective. Pt independent in the room. safety measures in place
--- NOTE | 2024-08-11 08:27 | W.PN.CARDCBS ---
Addendum entered and electronically signed by Taiwo Lee MD 08/11/24 10:53:
I saw and examined the patient.
The Cosmetology Educator's note was reviewed and I agree with the note.
Comment:
GEN: No distress, awake, Ox3
HEENT: supple, anicteric, mmm
LUNGS: CTA, no wheezes/rales
CV: Reg, S1/S2, 1/6 syst LSB, no gallop
ABD: soft, BS+, NT/ND
EXT: No edema
NEURO: Gross non-focal
SKIN: sternotomy
Plan:
Clinically much improved. Ambulating and feels well. Stable for transfer to rehab.
No further dizziness or lightheadedness.
Weight is down. Continue Lasix 40 mg daily.
Continue nadolol.
Continue Coumadin. Would give extra 2.5 mg tonight for goal INR of 2-3
Original Note:
Today's Communication / Plan
-
Encouraged PT/OT and ambulating around unit
Give 7.5 mg Coumadin this evening as INR remains subtherapeutic
Continue nadolol and oral Lasix 40 mg
Impression / Plan
-
PCP: Dr. Arndt
Card: Dr. Abril Maxwell
CT surgeon: Dr. Mai at [place]
Impression:
Admitted with SOB and acute HF 08/04/24
Acute on chronic HFpEF, proBNP 5520, improved to 1980 on 08/10/2024
s/p redo AVR and TV ring repair with small to moderate pleural effusions.
Possible atrial tachycardia on presentation
Recent heart block postop s/p [place] Aveir dual-chamber leadless pacemaker 07/27/2024
h/o bicuspid aortic valve AVR 2007 [facility]
recent bioprosthetic aortic valve degeneration, s/p bioprosthetic redo aortic valve ([place]) tricuspid valve ring 07/24/2024
s/p CABG with SVG to RCA 2007
Intraoperative complication requiring temporary RVAD assistance at time of AVR 2007
Chronic HFpEF
Paroxysmal atrial fibrillation
s/p PVI at [facility]
Paroxysmal atrial flutter
s/p atrial flutter ablation 04/23/2017
h/o long QT syndrome seen on exercise only during previous stress test, intolerant to AAD in particular amiodarone, diagnosed elsewhere in the past
History of long QT especially with exercise and with amiodarone.
h/o PE
Pulmonary nodule
History of Lyme disease
History of Guillain-Valenzuela�
IBS
Nausea and usual postop pain
Echo 04/10/2024: EF 72%, stage II diastolic dysfunction, mild MR, #23 bovine bioprosthetic AVR peak/mean 50/31 mmHg, moderate aortic regurgitation pressure half-time 455 ms, mild to moderate TR with PAP 51 mmHg, no pericardial effusion
Echo 05/15/2024: Limited follow-up study, EF 55%, #23 bioprosthetic AVR with mean gradient 24 mmHg, there is moderate to moderate to severe aortic insufficiency and the pressure half-time across the valve 641 ms may underestimate the severity of
aortic insufficiency
GABRIEL 07/05/24: Well-seated bioprosthetic AVR with thickened leaflets and reduced excursion and evidence of moderate prosthetic stenosis, mild to moderate MR
Echo 08/06/2024: PM DH study, EF 55%, normal regional wall motion, moderate to severe MR with systolic flow reversal in the pulmonary veins with MR and peak/mean 10/3 mmHg, status post #23 bioprosthetic AVR with peak/mean 29/16 mmHg and no evidence of
aortic regurgitation, status was #32 tricuspid valve ring repair with PAP 35 to 40 mmHg
Cardiac catheterization 05/15/2024: Moderate aortic valve stenosis of bioprosthetic aortic valve. LVEDP 29. Stable coronary anatomy with patent SVG to mid/distal RCA. No coronary disease otherwise.
CT of the chest 08/04/2024: MODERATE-SIZED RIGHT and SMALL LEFT PLEURAL EFFUSIONS. Mild acute interstitial and alveolar cardiogenic pulmonary edema. MODERATE CARDIOMEGALY. Chronic granulomatous disease infection in the left upper lobe.
Plan:
-She has h/o complicated tissue AVR at [place] in 2007 and suffered intraoperative complication requiring temporary RVAD assistance and then CABG with an SVG to the RCA. Patient then had progressive tissue AVR dysfunction and had surgery at [facility] on
07/24/2024. Postop patient then had Samayoa DC leadless PPM on 07/27/2024. She presented with acute heart failure exacerbation.
-She was diuresed with improvement. Weight down 13 pounds since admission, current weight 144 pounds. Cr stable, 0.7. Patient did receive IV Lasix on 08/10/2024. Repeat proBNP improved to 1980 08/10 (was 5520 on admission). DC on po lasix 40mg
daily, was not discharged on lasix post op.
-Echo 08/06/2024 noted EF 55% with moderate to severe MR.
-Unable to obtain GABRIEL report from [facility] dated 07/05 that reportedly showed only mild-mod MR, but our team spoke w/ DUDE WRANGLER for CT surgery at [facility] and she reported that the patient was discharged prior to planned post-op TTE as she wanted to go home.
Will plan to repeat TTE as OP in the next month to reassess MR which may be improved in the setting of euvolemia.
-Check BMP in 1 week.
-Continue OP nadolol. Has been ordered 10mg BID, however has only been taking once daily. With orthostasis and starting PO lasix, will continue at 10mg daily for now.
-Jardiance changed to Farxiga due to formulary while hospitalized. Will restart Jardiance 10mg daily at discharge.
-No MK/ARB/ARNI/Aldosterone antagonist due to orthostasis.
-Known h/o paroxysmal atrial fibrillation/flutter. in av paced rhythm on tele
-Previously on Eliquis, however is now on warfarin post-op w/ goal INR 2-3. INR 6/7 1.53. was on 5mg coumadin prior to admission. will give 7.5mg tonight and follow INR.
-Cardiac follow up arranged.
-d/w nursing, CM
Patient is status post high risk redo bioprosthetic aortic valve replacement and tricuspid valve ring at [place]. Discharged 07/31/2024. She feels that she was volume overloaded on discharge and has had continued progressive shortness of breath.
Of note patient had heart block noted postop and underwent implant of dual-chamber leadless pacemaker system Samay[place] Avmaryanr Danisha. Patient with history of atrial arrhythmias as noted with sinus tachycardia/atrial tachycardia on admission. Acute on
chronic heart failure with elevated proBNP, pleural effusions and interstitial edema noted. Feeling better with diuresis. She however continues with postsurgical pain and nausea.
Of note patient has history of long QT noted with exercise previously and cannot take antiarrhythmic drug therapy including significant reaction to amiodarone.
Progress Note - Resource Director
Subjective
Date of Service: August 11, 2024
Patient seen and examined. Patient reports she feels less short of breath today but feels a little bit more unsteady. Slept well. Denies orthopnea or PND
Objective
Labs:
08/11/24 05:10
08/11/24 05:10
Labs
Hgb 8.9 g/dL (12.0-16.0) L 08/11/24 05:10
Hct 27.1 % (37.0-47.0) L 08/11/24 05:10
Plt Count 383 10^3/uL (130-400) 08/11/24 05:10
PT 18.7 Sec (11.4-14.6) H 08/11/24 05:10
INR 1.53 08/11/24 05:10
Sodium 139 mmol/L (135-145) 08/11/24 05:10
Potassium 4.3 mmol/L (3.5-5.1) 08/11/24 05:10
BUN 20 mg/dl (7-17) H 08/11/24 05:10
Creatinine 0.7 mg/dL (0.6-1.0) 08/11/24 05:10
Glucose 90 mg/dl (70-99) 08/11/24 05:10
Vital Signs and I&O:
Vital Signs
Temp Pulse Resp BP Pulse Ox
98.7 F 60 16 98/58 97
08/11/24 04:40 08/11/24 06:00 08/11/24 04:40 08/11/24 04:41 08/11/24 04:41
Vital Signs
Temp Pulse Resp BP Pulse Ox
98.7 F 60 16 98/58 97
08/11/24 04:40 08/11/24 06:00 08/11/24 04:40 08/11/24 04:41 08/11/24 04:41
Intake & Output
08/09/24 08/10/24 08/11/24 08/12/24
06:59 06:59 06:59 06:59
Intake Total 1090 / 1090 300 / 300
Output Total 2124 / 2124 975 / 975 1900 / 1900
Balance -5 / -5 115 / 115 -1600 / -1600
Physical Exam
Physical Exam
GEN: No distress, awake, alert, oriented x3. Lying in bed
HEENT: supple, anicteric, mmm,
LUNGS: Clear to auscultation bilaterally, no wheezes or crackles
CV: Reg, S1/S2, 2/6 murmur loudest at apex
ABD: soft, BS+, NT/ND
EXT: No cyanosis, clubbing or edema
NEURO: Gross non-focal
SKIN: Warm, pink, dry. No rash. Sternotomy incision healing
[2024-08-11] MEDS: COLACE 100 MG PO ×2 (08:44→19:25)
[2024-08-11] MEDS: FARXIGA 10 MG PO (08:44)
[2024-08-11] MEDS: ASPIR LOW (ENTERIC COATED) 81 MG PO (08:44)
[2024-08-11] MEDS: LASIX 40 MG PO (08:44)
[2024-08-11] MEDS: MIRALAX PO (08:45)
[2024-08-11] MEDS: PEPCID 20 MG PO (08:45)
[2024-08-11] MEDS: KLOR-CON 20 MEQ PO (08:45)
[2024-08-11] MEDS: CORGARD 10 MG PO (10:02)
--- NOTE | 2024-08-11 11:10 | W.PN.HOSP.TC ---
Today's Communication/Plan
-
Continue with Lasix
Chest x-ray pending
Increase dose of Coumadin
Monitor blood pressure
Assessment / Plan
Assessment / Plan
A/P: Patient is a 78y F with PMH significant for ASCVD, A-Fib and s/p recent revision aortic valve replacement who presents to ED complaining of worsening SOB x 11 days.
Acute on Chronic HFpEF
Aortic Insufficiency s/p Revision AVR (07/24/24)
s/p Tricuspid Valve Repair
- LE edema, bilateral pleural effusions, increased BNP, etc c/w volume overload.
- Has been on IV Lasix through 08/07 then held due to hypotension. s/p one time dose IV Lasix on 08/08. Monitor hemodynamics.
- Cardiology evaluation appreciated.
- transition to oral lasix when medically ready
BNP was repeated and was still elevated at 1979, check repeat chest x-ray
- Follow I/Os, daily weights, etc.
- Continue Jardiance.
On nadolol but refused at night (low BP) - changed to once daily per cards
compression hose
- Continue with new regimen of Lasix 40 mg daily
Complete Heart Block
s/p PPM Placement
- Developed heart block post-op ultimately requiring permanent pacemaker placement.
- EKG shows paced rhythm.
- Daughter reports pulse (on pulse oximeter) registered in the 50s at home.
- Monitor on telemetry for any bradyarrhythmia / PPM issues.
Blood Loss Anemia
- Improving per patient / daughter.
- Received PRBC infusion during hospitalization at [place].
- Discharge Hgb was 8.1g / dL. Now 9.3-->8.7
- Mild leukocytosis and thrombocytosis likely represent demargination / marrow response.
- Follow for continued increase / improvement.
Constipation
bowel regimen
ASCVD
- Chest discomfort likely expected s/p recent sternotomy / surgery.
- Initial troponin mildly elevated - also likely expected.
- Follow for any significant increase in symptoms, troponin, etc.
- Continue usual CV med regimen including ASA, Zetia, etc.
- Continue post-op pain control with tramadol.
Paroxysmal Atrial Fibrillation / Flutter
Subtherapeutic INR
- s/p multiple prior ablation procedures.
- Continue Coumadin for stroke risk reduction.
- Follow daily INR and adjust as needed, gave extra 2 mg 6/ (total 7mg) and 6/4.
INR 1.53, increase Coumadin dose to 7.5 mg
continue to monitor, goal 2-3
DVT Prophylaxis
History of PE
- On Coumadin.
Full code
PT/OT SNF. Placement on Tuesday as no availability over the weekend.
Anticipated Discharge: > 48 hours
Subjective/Interval History
-
Date of Service: August 11, 2024
States feeling significantly better today
Intermittent cough
Remains with chest pain due to surgery
Objective Data
-
Labs:
Laboratory Results
08/11/24
05:10
WBC 6.9
Hgb 8.9 L
Hct 27.1 L
Plt Count 383
PT 18.7 H
INR 1.53
Sodium 139
Potassium 4.3
Chloride 106
Carbon Dioxide 27
BUN 20 H
Creatinine 0.7
Glucose 90
Calcium 9.5
Vital Signs:
Vital Signs
Temp Pulse Resp BP Pulse Ox
98.7 F 67 18 100/63 97
08/11/24 10:59 08/11/24 10:59 08/11/24 10:59 08/11/24 10:03 08/11/24 10:59
I&O
08/10/24 08/11/24 08/12/24
06:59 06:59 06:59
Intake Total 1090 / 1090 300 / 300 120 / 120
Output Total 975 / 975 1900 / 1900
Balance 115 / 115 -1600 / -1600 120 / 120
Physical Exam
-
General: Well Developed, No Apparent Distress and Comfortable
HEENT: Moist Mucous Membranes, Anicteric and PERRLA
Respiratory: Rales and Non Labored Respirations; Negative Wheezes or Rhonchi
Cardiac: Regular Rhythm, S1/S2 and Murmur
GI: Soft, Nontender, Nondistended and Normal Bowel Sounds
Musculoskeletal: No Clubbing, No Cyanosis, Edema, Right Lower Extrem and Edema, Left Lower Extrem
Skin: Warm and Dry; Negative Rash, Ulcers or Lesions
Neuro: Awake and AO x 3
Hematologic / Lymphatic: No Lymphadenopathy
Psych: Calm
[2024-08-11] MEDS: COUMADIN 7.5 MG PO (17:53)
--- NOTE | 2024-08-11 21:21 | PTCARENOTE ---
Received patient at change of shift, pt ambulating independently in the hallway. V paced on the monitor, HR in the 70s. Colace given and Senna held as per pt request. Pt complains of 3/10 headache, PRN Tylenol administered, see MAR. Call trinh within
reach.
[2024-08-11] MEDS: SENOKOT PO (22:20)
[2024-08-11] MEDS: ZETIA 10 MG PO (22:25)
[2024-08-12] VITALS (7 sets, daily range): BP systolic 102–147; BP diastolic 51–120; BMI 24.6
[2024-08-12 03:45] LABS: % Basophils 1.5 % (0-2); % Eosinophils 3.8 % (0-6); % Immature Granulocytes 0.3 % (0-0.5); % Lymphocytes 17.8 % (20.5-51.1); % Monocytes 10.8 % (1.7-9.3); % Neutrophils 65.8 % (42.2-75.2); Absolute Basophils 0.1 10^3/uL (0-0.2); Absolute Eosinophils 0.3 10^3/uL (0-0.7); Absolute Lymphocytes 1.3 10^3/uL (1.2-3.4); Absolute Monocytes 0.8 10^3/uL (0.1-0.6); Absolute Neutrophils 4.9 10^3/uL (1.4-6.5); Hematocrit 29.6 % (37.0-47.0); Hemoglobin 9.8 g/dL (12.0-16.0); Mean Corp Hgb Conc. 33.1 g/dL (33.0-37.0); Mean Corpuscular Hgb 31.2 pg (27.0-31.0); Mean Corpuscular Volume 94.3 fL (81.0-99.0); Mean Platelet Volume 10.4 fL (7.4-10.4); Nucleated Red Blood Cells % 0 %; Platelet Count 397 10^3/uL (130-400); Red Blood Cell Count 3.14 10^6/uL (4.20-5.40); Red Cell Dist. Width 13.2 % (11.5-14.5); White Blood Cell Count 7.4 10^3/uL (4.8-10.8)
[2024-08-12 03:53] LABS: INR 1.52; PT 18.6 Sec (11.4-14.6)
[2024-08-12 04:08] LABS: Blood Urea Nitrogen 19 mg/dl (7-17); Calcium 9.6 mg/dl (8.4-10.2); Carbon Dioxide 25 mmol/L (22-30); Chloride 107 mmol/L (98-107); Estimated Creatinine Clearance 56 ml/min; Glucose 98 mg/dl (70-99); Potassium 4.2 mmol/L (3.5-5.1); Sodium 141 mmol/L (135-145); eGFR > 60.00
[2024-08-12] MEDS: CORGARD 10 MG PO (09:00)
[2024-08-12] MEDS: COLACE 100 MG PO ×2 (09:01→20:00)
[2024-08-12] MEDS: ASPIR LOW (ENTERIC COATED) 81 MG PO (09:01)
[2024-08-12] MEDS: MIRALAX PO ×2 (09:02→17:00)
[2024-08-12] MEDS: KLOR-CON 20 MEQ PO (09:02)
[2024-08-12] MEDS: PEPCID 20 MG PO (09:02)
[2024-08-12] MEDS: FARXIGA 10 MG PO (09:02)
[2024-08-12] MEDS: LASIX 40 MG PO (09:03)
--- NOTE | 2024-08-12 10:40 | W.PN.HOSP.TC ---
Today's Communication/Plan
-
Increase dose of Coumadin
Continue with Lasix 40 mg
Monitor creatinine
Trend INR daily
Assessment / Plan
Assessment / Plan
A/P: Patient is a 78y F with PMH significant for ASCVD, A-Fib and s/p recent revision aortic valve replacement who presents to ED complaining of worsening SOB x 11 days.
Acute on Chronic HFpEF
Aortic Insufficiency s/p Revision AVR (07/24/24)
s/p Tricuspid Valve Repair
- LE edema, bilateral pleural effusions, increased BNP, etc c/w volume overload.
- Has been on IV Lasix through 08/07 then held due to hypotension. s/p one time dose IV Lasix on 08/08. Monitor hemodynamics.
- Cardiology evaluation appreciated.
- transition to oral lasix when medically ready
BNP was repeated and was still elevated at 1979, repeat chest x-ray with improvement in tiny pleural effusions. 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 Mild cardiomegaly stable.
- Follow I/Os, daily weights, etc.
- Continue Jardiance.
On nadolol but refused at night (low BP) - changed to once daily per cards
compression hose
- Continue with new regimen of Lasix 40 mg daily
Complete Heart Block
s/p PPM Placement
- Developed heart block post-op ultimately requiring permanent pacemaker placement.
- EKG shows paced rhythm.
- Daughter reports pulse (on pulse oximeter) registered in the 50s at home.
- Monitor on telemetry for any bradyarrhythmia / PPM issues.
Blood Loss Anemia
- Improving per patient / daughter.
- Received PRBC infusion during hospitalization at [place].
- Discharge Hgb was 8.1g / dL. Now 9.3-->8.7
- Mild leukocytosis and thrombocytosis likely represent demargination / marrow response.
- Follow for continued increase / improvement.
Constipation
bowel regimen
ASCVD
- Chest discomfort likely expected s/p recent sternotomy / surgery.
- Initial troponin mildly elevated - also likely expected.
- Follow for any significant increase in symptoms, troponin, etc.
- Continue usual CV med regimen including ASA, Zetia, etc.
- Continue post-op pain control with tramadol.
Paroxysmal Atrial Fibrillation / Flutter
Subtherapeutic INR
- s/p multiple prior ablation procedures.
- Continue Coumadin for stroke risk reduction.
- Follow daily INR and adjust as needed,
- INR 1.53, increase Coumadin dose to 8 mg. continue to monitor, goal 2-3
DVT Prophylaxis
History of PE
- On Coumadin.
Full code
PT/OT SNF. Placement on Tuesday as no availability over the weekend.
Anticipated Discharge: Within 24 hours
Subjective/Interval History
-
Date of Service: August 12, 2024
Denies any shortness of breath or cough.
Objective Data
-
Labs:
Laboratory Results
08/12/24
03:17
WBC 7.4
Hgb 9.8 L
Hct 29.6 L
Plt Count 397
PT 18.6 H
INR 1.52
Sodium 141
Potassium 4.2
Chloride 107
Carbon Dioxide 25
BUN 19 H
Creatinine 0.7
Glucose 98
Calcium 9.6
Vital Signs:
Vital Signs
Temp Pulse Resp BP Pulse Ox
98 F 73 20 106/61 97
08/12/24 07:15 08/12/24 09:02 08/12/24 07:15 08/12/24 09:02 08/12/24 07:18
I&O
08/11/24 08/12/24 08/13/24
06:59 06:59 06:59
Intake Total 300 / 300 120 / 120
Output Total 1900 / 1900 1400 / 1400
Balance -1600 / -1600 -1280 / -1280
Physical Exam
-
General: Well Developed, No Apparent Distress and Comfortable
HEENT: Moist Mucous Membranes, Anicteric and PERRLA
Respiratory: Non Labored Respirations; Negative Wheezes, Rhonchi or Accessory Resp Muscle Use
Cardiac: Regular Rhythm, S1/S2 and Murmur
GI: Soft, Nontender, Nondistended and Normal Bowel Sounds
Musculoskeletal: No Clubbing, No Cyanosis, Edema, Right Lower Extrem and Edema, Left Lower Extrem
Skin: Warm and Dry; Negative Rash, Ulcers or Lesions
Neuro: Awake and AO x 3
Hematologic / Lymphatic: No Lymphadenopathy
Psych: Calm
--- NOTE | 2024-08-12 11:19 | W.PN.CARDCBS ---
Today's Communication / Plan
-
Doing much better. Continue Lasix 40 mg daily. Weight much improved at 143
Creatinine normal at 0.7.
Okay for transfer to rehab.
Has follow-up in 1 to 2 weeks with [facility].
Will need repeat echo as outpatient to reevaluate mitral valve.
Continue nadolol and Farxiga.
Continue Coumadin
Impression / Plan
-
PCP: Dr. Arndt
Card: Dr. Abril Maxwell
CT surgeon: Dr. Mai at [place]
Impression:
Admitted with SOB and acute HF 08/04/24
Acute on chronic HFpEF, proBNP 5520, improved to 1980 on 08/10/2024
s/p redo AVR and TV ring repair with small to moderate pleural effusions.
Possible atrial tachycardia on presentation
Recent heart block postop s/p [place] Aveir dual-chamber leadless pacemaker 07/27/2024
h/o bicuspid aortic valve AVR 2007 [facility]
recent bioprosthetic aortic valve degeneration, s/p bioprosthetic redo aortic valve ([place]) tricuspid valve ring 07/24/2024
s/p CABG with SVG to RCA 2007
Intraoperative complication requiring temporary RVAD assistance at time of AVR 2007
Chronic HFpEF
Paroxysmal atrial fibrillation
s/p PVI at [facility]
Paroxysmal atrial flutter
s/p atrial flutter ablation 04/23/2017
h/o long QT syndrome seen on exercise only during previous stress test, intolerant to AAD in particular amiodarone, diagnosed elsewhere in the past
History of long QT especially with exercise and with amiodarone.
h/o PE
Pulmonary nodule
History of Lyme disease
History of Guillain-Valenzuela�
IBS
Nausea and usual postop pain
Echo 04/10/2024: EF 72%, stage II diastolic dysfunction, mild MR, #23 bovine bioprosthetic AVR peak/mean 50/31 mmHg, moderate aortic regurgitation pressure half-time 455 ms, mild to moderate TR with PAP 51 mmHg, no pericardial effusion
Echo 05/15/2024: Limited follow-up study, EF 55%, #23 bioprosthetic AVR with mean gradient 24 mmHg, there is moderate to moderate to severe aortic insufficiency and the pressure half-time across the valve 641 ms may underestimate the severity of
aortic insufficiency
GABRIEL 07/05/24: Well-seated bioprosthetic AVR with thickened leaflets and reduced excursion and evidence of moderate prosthetic stenosis, mild to moderate MR
Echo 08/06/2024: PM DH study, EF 55%, normal regional wall motion, moderate to severe MR with systolic flow reversal in the pulmonary veins with MR and peak/mean 10/3 mmHg, status post #23 bioprosthetic AVR with peak/mean 29/16 mmHg and no evidence of
aortic regurgitation, status was #32 tricuspid valve ring repair with PAP 35 to 40 mmHg
Cardiac catheterization 05/15/2024: Moderate aortic valve stenosis of bioprosthetic aortic valve. LVEDP 29. Stable coronary anatomy with patent SVG to mid/distal RCA. No coronary disease otherwise.
CT of the chest 08/04/2024: MODERATE-SIZED RIGHT and SMALL LEFT PLEURAL EFFUSIONS. Mild acute interstitial and alveolar cardiogenic pulmonary edema. MODERATE CARDIOMEGALY. Chronic granulomatous disease infection in the left upper lobe.
Plan:
-She has h/o complicated tissue AVR at [place] in 2007 and suffered intraoperative complication requiring temporary RVAD assistance and then CABG with an SVG to the RCA. Patient then had progressive tissue AVR dysfunction and had surgery at [facility] on
07/24/2024. Postop patient then had [place]ay[place] DC leadless PPM on 07/27/2024. She presented with acute heart failure exacerbation.
-She was diuresed with improvement. Weight down 14 pounds since admission, current weight 143 pounds. Cr stable, 0.7. Patient did receive IV Lasix on 08/10/2024. Repeat proBNP improved to 1980 08/10 (was 5520 on admission). DC on po lasix 40mg
daily, was not discharged on lasix post op.
-Echo 08/06/2024 noted EF 55% with moderate to severe MR.
-Unable to obtain GABRIEL report from [facility] dated 07/05 that reportedly showed only mild-mod MR, but our team spoke w/ PROCESSES CHEMICAL DESIGN ENGINEER for CT surgery at [facility] and she reported that the patient was discharged prior to planned post-op TTE as she wanted to go home.
Will plan to repeat TTE as OP in the next month to reassess MR which may be improved in the setting of euvolemia.
-Check BMP in 1 week.
-Continue OP nadolol. Has been ordered 10mg BID, however has only been taking once daily. With orthostasis and starting PO lasix, will continue at 10mg daily for now.
-Jardiance changed to Farxiga due to formulary while hospitalized. Will restart Jardiance 10mg daily at discharge.
-No MK/ARB/ARNI/Aldosterone antagonist due to orthostasis.
-Known h/o paroxysmal atrial fibrillation/flutter. in av paced rhythm on tele
-Previously on Eliquis, however is now on warfarin post-op w/ goal INR 2-3. INR 6/7 1.5. was on 5mg coumadin prior to admission. would give 7.5mg tonight and follow INR.
-Cardiac follow up arranged.
-d/w nursing, CM
Patient is status post high risk redo bioprosthetic aortic valve replacement and tricuspid valve ring at [place]. Discharged 07/31/2024. She feels that she was volume overloaded on discharge and has had continued progressive shortness of breath.
Of note patient had heart block noted postop and underwent implant of dual-chamber leadless pacemaker system Sam[place] Aveir D. Patient with history of atrial arrhythmias as noted with sinus tachycardia/atrial tachycardia on admission. Acute on
chronic heart failure with elevated proBNP, pleural effusions and interstitial edema noted. Feeling better with diuresis. She however continues with postsurgical pain and nausea.
Of note patient has history of long QT noted with exercise previously and cannot take antiarrhythmic drug therapy including significant reaction to amiodarone.
Progress Note - Rug Shampooer
Subjective
Date of Service: August 12, 2024
Feels well. No dizziness or shortness of breath
Objective
Labs:
08/12/24 03:17
08/12/24 03:17
Labs
Hgb 9.8 g/dL (12.0-16.0) L 08/12/24 03:17
Hct 29.6 % (37.0-47.0) L 08/12/24 03:17
Plt Count 397 10^3/uL (130-400) 08/12/24 03:17
PT 18.6 Sec (11.4-14.6) H 08/12/24 03:17
INR 1.52 08/12/24 03:17
Sodium 141 mmol/L (135-145) 08/12/24 03:17
Potassium 4.2 mmol/L (3.5-5.1) 08/12/24 03:17
BUN 19 mg/dl (7-17) H 08/12/24 03:17
Creatinine 0.7 mg/dL (0.6-1.0) 08/12/24 03:17
Glucose 98 mg/dl (70-99) 08/12/24 03:17
Vital Signs and I&O:
Vital Signs
Temp Pulse Resp BP Pulse Ox
98 F 73 20 106/61 97
08/12/24 07:15 08/12/24 09:02 08/12/24 07:15 08/12/24 09:02 08/12/24 07:18
Vital Signs
Temp Pulse Resp BP Pulse Ox
98 F 73 20 106/61 97
08/12/24 07:15 08/12/24 09:02 08/12/24 07:15 08/12/24 09:02 08/12/24 07:18
Intake & Output
08/10/24 08/11/24 08/12/24 08/13/24
06:59 06:59 06:59 06:59
Intake Total 1090 / 1090 300 / 300 120 / 120
Output Total 975 / 975 1900 / 1900 1400 / 1400
Balance 115 / 115 -1600 / -1600 -1280 / -1280
Physical Exam
Physical Exam
GEN: No distress, awake, Ox3
HEENT: supple, anicteric, mmm
LUNGS: CTA, no wheezes/rales
CV: Reg, S1/S2, 1/6 syst LSB, no gallop
ABD: soft, BS+, NT/ND
EXT: No edema
NEURO: Gross non-focal
SKIN: No rash
--- NOTE | 2024-08-12 16:11 | PTCARENOTE ---
08/12/24 Received patient from previous shift in bed resting comfortably. Patient with no complaints of chest pain, shortness of breath. Pt on monitor tech AV paced at times, VSS. Patient took a shower per Md order. Pt walked in room and hallway.
Pt informed RN that son will not be able to take her to [facility] tomorrow. RN reached out to Care Management and they responded they will take care of transportation Tuesday AM. Patient made aware of same.
[2024-08-12] MEDS: COUMADIN 8 MG PO (17:00)
[2024-08-12] MEDS: SENOKOT PO (21:59)
[2024-08-12] MEDS: ZETIA 10 MG PO (22:15)
--- NOTE | 2024-08-12 22:38 | PTCARENOTE ---
Received patient at change of shift. V paced on the monitor, HR in the 60s. Sternal incision INSTRUCTIONAL FACILITATOR, intact. Senna held as per pt request. No complaints from pt at this time, call trinh within reach.
[2024-08-13 03:45] VITALS: BP 105/57
[2024-08-13] MEDS: ULTRAM 25 MG PO (03:49)
[2024-08-13 04:04] VITALS: BMI 24.5
--- NOTE | 2024-08-13 04:05 | PTCARENOTE ---
Patient complains of 6/10 sternal incision pain. PRN pain medication administered as per order, see MAR. Vital signs WNL.
[2024-08-13 04:21] LABS: % Basophils 1.7 % (0-2); % Eosinophils 5.4 % (0-6); % Immature Granulocytes 0.1 % (0-0.5); % Lymphocytes 20.6 % (20.5-51.1); % Monocytes 12.4 % (1.7-9.3); % Neutrophils 59.8 % (42.2-75.2); Absolute Basophils 0.1 10^3/uL (0-0.2); Absolute Eosinophils 0.4 10^3/uL (0-0.7); Absolute Lymphocytes 1.6 10^3/uL (1.2-3.4); Absolute Neutrophils 4.6 10^3/uL (1.4-6.5); Hematocrit 30.4 % (37.0-47.0); Mean Corp Hgb Conc. 32.9 g/dL (33.0-37.0); Mean Corpuscular Hgb 31.3 pg (27.0-31.0); Mean Corpuscular Volume 95.3 fL (81.0-99.0); Mean Platelet Volume 10.5 fL (7.4-10.4); Nucleated Red Blood Cells % 0 %; Platelet Count 392 10^3/uL (130-400); Red Blood Cell Count 3.19 10^6/uL (4.20-5.40); Red Cell Dist. Width 13.2 % (11.5-14.5); White Blood Cell Count 7.7 10^3/uL (4.8-10.8)
[2024-08-13 04:24] LABS: INR 1.68
[2024-08-13 04:38] LABS: Blood Urea Nitrogen 22 mg/dl (7-17); Carbon Dioxide 29 mmol/L (22-30); Chloride 106 mmol/L (98-107); Estimated Creatinine Clearance 49 ml/min; Glucose 95 mg/dl (70-99); Potassium 4.3 mmol/L (3.5-5.1); Sodium 141 mmol/L (135-145); eGFR > 60.00
[2024-08-13 08:10] VITALS: BP 104/62
[2024-08-13] MEDS: COLACE 100 MG PO (08:52)
[2024-08-13] MEDS: CORGARD 10 MG PO (08:52)
[2024-08-13] MEDS: KLOR-CON 20 MEQ PO (08:52)
[2024-08-13] MEDS: PEPCID 20 MG PO (08:52)
[2024-08-13] MEDS: FARXIGA 10 MG PO (08:52)
[2024-08-13] MEDS: LASIX 40 MG PO (08:53)
[2024-08-13] MEDS: ASPIR LOW (ENTERIC COATED) 81 MG PO (08:53)
[2024-08-13] MEDS: MIRALAX PO (08:56)
--- NOTE | 2024-08-13 09:44 | CM ---
Addendum entered by Ayanna Osborne 08/13/24 12:42:
She will be going to room 208. The telephone number for report is ([phone]) and the fax number is ([phone]).
Original Note:
Reviewed chart. Received telephone call from [facility] liaison who states they can offer a bed today. Met with Mrs. Sena to review discharge plan. She is agreeable to going to [facility] today. Reviewed wheelchair van and
out of pocket cost. She is agreeable to the wheelchair van. Medical work-up in progress. The discharge plan is to go to [facility] when medically stable.
--- NOTE | 2024-08-13 10:13 | PTCARENOTE ---
Assumed care this morning at 0700. Patient AO x3. Bull shortness of breath at rest, lungs CTA. AV paced on telemetry, BP 104/62, sternal incision healing and approximated, HUC OB. Call trinh in reach
--- NOTE | 2024-08-13 10:43 | W.DS.TRANS ---
DC Summary - Practical Nurse
-
Discharge Instructions:
Sleep Apnea Risk Low
Discharge Diagnosis/Procedures Acute on chronic diastolic heart failure
exacerbation
Diet 2 Gram Sodium,Restrict fluids to 48 oz
Activity As tolerated
Blood Work BMP in 1 week, INR daily
Specialty Instructions Weigh Daily
Instructions: *[facility] Heart Failure Instructions
Stand-Alone Forms:
Changes to Home Medications: Yes
Discharge Medications:
DC Medications w/original date entered in [employer]
empagliflozin 10 mg tablet (Jardiance) 10 mg PO DAILY Diabetes 02/27/24
ezetimibe 10 mg tablet 10 mg PO HS High Cholesterol 02/27/24
nadolol 20 mg tablet 10 mg PO DAILY Blood Pressure 02/27/24
Senna Lax 8.6 mg PO DAILY Constipation 08/04/24
acetaminophen 325 mg tablet (Tylenol) 650 mg PO Q6H Pain 08/04/24
aspirin 81 mg capsule 81 mg PO DAILY Blood Clot Prevention/Tx 08/04/24
famotidine 20 mg tablet 20 mg PO DAILY Gastrointestinal Issue 08/04/24
polyethylene glycol 3350 17 gram oral powder packet (Miralax) 17 g PO DAILY Constipation 08/04/24
tramadol 25 mg tablet 25 mg PO Q6H PRN pain 08/04/24
furosemide 40 mg tablet 40 mg PO DAILY #30 tabs 08/13/24
warfarin 4 mg tablet (Jantoven) 8 mg (2 x 4 mg) PO QPM #10 tabs 08/13/24
Home Medication Changes
Lasix increased.
Coumadin dose had been titrated with goal for INR 2�3
Pending Results: No
--- NOTE | 2024-08-13 11:23 | W.HF.CON ---
Heart Failure
- LV Function
Left ventricular function study result: LV Ejection fraction >/= 50%
Ejection Fraction Percentage: 55
- ARNI
Patient already on ARNI: No
Heart Failure ARNI Not Indicated: LV Ejection Fraction >/= 40%
- ACEI/ARB
Patient already on ACEI/ARB: No
Heart Failure ACEI/ARB Not Indicated: LV Ejection Fraction > 40%
- Beta Nilsa
Patient already on Evidence Based Beta Nilsa: No
Heart Failure Evidence Based Beta Nilsa Not Indicated: LV Ejection Fraction > 40%
- Mineralocorticord Receptor Antagonist
Patient already on MRA: No
Heart Failure MRA Not Indicated: LV Ejection Fraction > 40%
- SGLT-2 Inhibitor
Patient already on SGLT-2 Inhibitor: Yes
- Afib Anticoagulation
Patient already on Anticoagulation for Afib: Yes
- NYHA CHF Classification
NYHA CHF Classification Level: Class III - Symptoms w/ min exertion, interferes w/ nml daily activity
- ACC/AHA Stage
ACC/AHA Stage: Stage C: Symptomatic Heart Failure
[2024-08-13 12:18] VITALS: BP 103/56
--- NOTE | 2024-08-13 12:28 | PTCARENOTE ---
[facility] [phone]
[2024-08-13 14:47] VITALS: BP 95/48
--- NOTE | 2024-08-13 15:45 | PTCARENOTE ---
Patient discharged to [facility] in a wheelchair van. All paperwork and belongs sent with patient. IV and telemetry removed.
== END 2024-08-13 15:59 | DRG 292 ==
LOC: IVU 01:34
PROVIDERS: Hospitalist; Internal Medicine; Physician Assistant Medical; ADMITTING PHYSICIAN Hospitalist; ATTENDING PHYSICIAN Internal Medicine; CONSULT PHYSICIAN Internal Medicine Cardiovascular Disease; EMERGENCY PHYSICIAN Emergency Medicine; FAMILY PHYSICIAN Internal Medicine
PROC: 4B02XSZ Measurement of Cardiac Pacemaker, External Approach (ICD-10-PCS; 2024-08-06)
DX: I50.33 Acute on chronic diastolic (congestive) heart failure (principal); G61.0 Guillain-Barre syndrome; I44.2 Atrioventricular block, complete; I47.19 Other supraventricular tachycardia; I48.20 Chronic atrial fibrillation, unspecified; I48.0 Paroxysmal atrial fibrillation; E78.00 Pure hypercholesterolemia, unspecified; I25.10 Atherosclerotic heart disease of native coronary artery without angina pectoris; Z95.0 Presence of cardiac pacemaker; D50.0 Iron deficiency anemia secondary to blood loss (chronic); Z86.711 Personal history of pulmonary embolism; D72.829 Elevated white blood cell count, unspecified; D75.839 Thrombocytosis, unspecified; Z95.3 Presence of xenogenic heart valve; Z95.1 Presence of aortocoronary bypass graft; Z87.891 Personal history of nicotine dependence; Z79.82 Long term (current) use of aspirin; E11.9 Type 2 diabetes mellitus without complications; Z79.01 Long term (current) use of anticoagulants; D71 Functional disorders of polymorphonuclear neutrophils; Z80.3 Family history of malignant neoplasm of breast; J98.4 Other disorders of lung; Z86.19 Personal history of other infectious and parasitic diseases; K58.9 Irritable bowel syndrome, unspecified; Z79.84 Long term (current) use of oral hypoglycemic drugs; Z79.899 Other long term (current) drug therapy
CPT/HCPCS: 93308; 71045; 71046; 71275; 80048; 80053; 81003; 81015; 82248; 83735; 83880; 84484; 85025; 85027; 85610; 87086; 93005; 93321; 93325; 96374; 96375; 97110; 97116; 97162; 97166; 97530; 97535; 99291; Q9967

== ENCOUNTER → 2024-10-23 09:10 | Outpatient (REF) | payer MEDICARE, SELFPAY | LOC: RCS 09:10 | PROVIDERS: ATTENDING PHYSICIAN Internal Medicine Cardiovascular Disease; FAMILY PHYSICIAN Internal Medicine | DX: I35.0 Nonrheumatic aortic (valve) stenosis (principal); Z95.3 Presence of xenogenic heart valve | CPT/HCPCS: 93306 ==

== ENCOUNTER 2024-11-02 13:19 | Emergency (ER) | payer MEDICARE, SELFPAY ==
[2024-11-02 13:23] VITALS: BP 146/77
--- NOTE | 2024-11-02 16:46 | ED.GENMED ---
History of Present Illness
General
Chief Complaint: Fall
Source: patient
Exam Limitations: none
Time Seen by Provider: 11/02/24 13:51
Nursing documentation reviewed up to this point in time: agreed with
History of Present Illness
History of Present Illness:
Patient is an 79-year-old female with history of atrial fibrillation on Eliquis, CHF, CAD, hypertension who presents to the emergency department for evaluation of head injury following mechanical trip and fall earlier today. Patient states that she
was walking in the hospital parking lot when she tripped adn feel striking the left side of her face on the pavement. This fall was witnessed and she denies any LOC. She complains of headache.
She also has some pain in her left hand and believes this may have occurred while attempting to break her fall.
She denies any visual changes, vomiting, neck pain, back pain, abdominal pain, or pain in lower extremities. No other concerns.
Patient is currently anticoagulated on eliquis.
Past History
Past History
ED Past Medical History: Arrthythmia (Atrial flutter with ablation), CAD, Hypercholesterolemia, CA, Valvular disease and Other (Herniated disc, Diverticulitis, PE)
ED Past Surgical History: Cardiac (Aortic valve replaced,) and Cholecystectomy
Social History
Tobacco: Former smoker
Alcohol: Occasional
Drug: None
Personal: ( in Assisted living due to intracranial bleed after fall)
Living: other
Employment: Employed
Family History
Family History: Other (Noncontributory)
Review of Systems
Review of Systems
Allergies reviewed?: Yes
All Other Systems: ROS reviewed and negative except as documented in HPI and ROS
Phy Exam
Physical Exam
Physical Exam:
GENERAL: No acute distress
HEENT: Mild tenderness in left temporal region without any obvious ecchymosis, swelling, or erythema , extraocular muscles intact, no signs of entrapment, dentition intact, no other obvious trauma
NECK: no midline tenderness, normal range of motion, no other obvious trauma
BACK: no midline tenderness, no other obvious trauma
CHEST: no tenderness, no flail segment, no subcutaneous emphysema, no other obvious trauma
LUNGS: clear to auscultation bilaterally
CARDIOVASCULAR: regular rate and rhythm
ABDOMEN: soft, non-tender, no masses, no other obvious trauma
PELVIS: stable, no obvious injury
EXTREMITIES: bruising and tenderness at base of left 3rd and 4th phalanxes on palmar aspect, Full ROM in left hand / fingers, normal capillary refill, distal pulses intact, no tenderness at left wrist; bilateral lower extremities and RUE atraumatic
and nontender wtih full ROM
NEUROLOGIC: awake, alert x 3, no focal deficits
Course
Orders/Labs/Results
Orders:
Orders
11/02/24 13:[address] [CT Head W/o Iv Contrast] Urgent
Comment: on Eliquis
Reason For Exam: fall with head injury
11/02/24 14:20
Hand, Left 3 View [CR Hand - Left Min 3 Views] Urgent
Comment:
Reason For Exam: fall
11/02/24 16:03
Splints/Slings/Crut- Treatment ONCE
Location: Left
Type of Splint: Ulnar Gutter
Vital Signs
Initial and Last Documented VS:
Initial Vital Signs
Temp Pulse Resp BP Pulse Ox
97.9 F 65 18 146/77 98
11/02/24 13:23 11/02/24 13:23 11/02/24 13:23 11/02/24 13:23 11/02/24 13:23
Last Documented Vital Signs
Temp Pulse Resp BP Pulse Ox
97.9 F 65 18 146/77 98
11/02/24 13:23 11/02/24 13:23 11/02/24 13:23 11/02/24 13:23 11/02/24 16:46
Procedures
Splint Check
Splint checked by provider?: Yes
Circulation/Movement/Sensation post splint application: brisk cap refill
MDM/Problems Addressed
Differential Diagnosis Includes:
Not limited to: contusion, concussion, intracerebral hemorrhage, hand fracture, etc
MDM/Problems Addressed:
79-year-old female on Saniya presenting after mechanical trip and fall with head strike. This fall was witnessed and there was no loss of consciousness. She reports headache and some pain in her left hand. No vomiting visual changes, dizziness,
neck/back pain or focal weakness/numbness in lower extremities. Vitals and physical exam as above. No obvious traumatic injuries to head or neck. She is neurologically intact with normal cerebellar exam. No midline spinal tenderness abdominal
pain. There is swelling and ecchymoses of the left hand at the base of the 3rd/4th phalanx. LUE neurovascularly intact.
Differential as above. Fall very much described as mechanical in nature and do not suspect syncopal event, etc. ED plan: CT head, x-ray left hand. Will reassess after above.
Update: Head CT without acute traumatic injuries. X-ray of left hand does reveal fractures to the bases of the proximal left 3rd and 4th digits. Patient placed in ulnar gutter splint by RN. She tolerated procedure well. She remains
neurologically intact. Feel stable for discharge with orthopedic follow-up. Advised rest, ice, Tylenol for pain. Strict return precautions discussed. Patient comfortablew/ plan
Chronic conditions affecting care:
Atrial fibrillation on lyubovis
Acute Exacerbation and/or Progression of Chronic Illness:
N/A
*Radiology
Radiology exam reviewed: radiology read reviewed
*Pulse Oximetry
SaO2: 98
Oxygen Mode of Delivery: Room air
Patient hypoxic: no
*EKG
Interpreted by ED Provider?: NA
*Casual Shoe Inspector Interpretation
Rate: Casual Shoe Inspector- N/A
*Critical Care Note
Total Time (30-74mins, 75-104mins- exclusive of procedures): Not Applicable
ED Attending Note
-
Portions of this chart may have been created with voice recognition software.� Occasional wrong word or��sound alike� substitutions may have occurred due to the inherent limitations of voice recognition software.
Discharge Plan
Departure
Patient Disposition: Home (Routine Discharge)
Date of Disposition: 11/02/24
Time of Disposition: 16:25
Patient with high blood pressure during this ER visit?: Yes
Condition: Good
Discharge Problem:
Fall, Fracture of proximal phalanx of digit of left hand, Head injury
Instructions: Head Injury in Adults (DC), Finger Fracture ED, BLOOD PRESSURE
Prescriptions:
No Action
nadolol 20 mg Tablet
10 mg PO DAILY
ezetimibe 10 mg Tablet
10 mg PO HS
Jardiance 10 mg Tablet
10 mg PO DAILY
acetaminophen [Tylenol] 325 mg Tablet
650 mg PO Q6H
polyethylene glycol 3350 [Miralax] 17 gram Powder In Packet
17 g PO DAILY
famotidine 20 mg Tablet
20 mg PO DAILY
aspirin 81 mg Capsule
81 mg PO DAILY
tramadol 25 mg Tablet
25 mg PO Q6H PRN (Reason: pain)
Rx Instructions:
No record of being filled in past year.
Senna Lax
8.6 mg PO DAILY
furosemide 40 mg Tablet
40 mg PO DAILY Qty: 30 0RF
warfarin [Jantoven] 4 mg Tablet
8 mg PO QPM Qty: 10 0RF
Referrals:
Saba Arndt MD [Family Provider, Internal Medicine]
Donnie Zapata MD [Active, Orthopedics] - Follow up in 1 week
Activity Restrictions/Additional Instructions:
RETURN TO THE EMERGENCY DEPARTMENT WITH ANY SEVERE HEADACHE OR NECK PAIN, VOMITING, VISUAL CHANGES, CHANGES IN MENTAL STATUS, DIZZINESS, NUMBNESS/TINGLING OR SIGNIFICANT PAIN IN LEFT HAND, WORSENING IN CURRENT SYMPTOMS, OR ANY OTHER CONCERN
- As discussed�your head CT showed no evidence of acute intracranial traumatic injuries.
- The x-ray of your left hand did show fractures at the base of both your left 3rd and 4th fingers. You were placed in a splint in the emergency department. Keep splint in place until seen by orthopedics. Splint should not get wet. Continue to
ice, elevate left hand take Tylenol as needed for pain.
- Continue to take all other medications as prescribed.
- Follow-up with your primary care provider and orthopedics for further evaluation/management to ensure that your symptoms are improving
Monitor your symptoms closely and return to the emergency department with any acute worsening/new symptoms or any other concerns
Interventions
Interventions:
*Risk Screen - Suicide Last Done: 11/02/24 13:23
*General Assessment Last Done: 11/02/24 13:23
*Neglect/Abuse Screening Last Done: 11/02/24 16:57
*ED- Fall Risk Assessment Last Done: 11/02/24 16:57
*ED COVID-19 Vaccine History Last Done: 11/02/24 16:57
*Nursing Disposition Last Done: 11/02/24 16:57
ED-Musculoskeletal Assessment Last Done: 11/02/24 16:56
ED- Neurological Assessment Last Done: 11/02/24 16:56
ED-Skin Assessment Last Done: 11/02/24 16:56
Discharge Date and Time
Discharge Date/Time: 11/02/24 16:57
Print Language: GUYANESE
== END 2024-11-02 16:57 | disposition home or self-care (01) ==
LOC: EMR 13:19
PROVIDERS: EMERGENCY PHYSICIAN Emergency Medicine; FAMILY PHYSICIAN Internal Medicine
DX: S09.90XA Unspecified injury of head, initial encounter (principal); S62.613A Displaced fracture of proximal phalanx of left middle finger, initial encounter for closed fracture; S62.615A Displaced fracture of proximal phalanx of left ring finger, initial encounter for closed fracture; W01.0XXA Fall on same level from slipping, tripping and stumbling without subsequent striking against object, initial encounter; E78.00 Pure hypercholesterolemia, unspecified; I11.0 Hypertensive heart disease with heart failure; I50.9 Heart failure, unspecified; I25.10 Atherosclerotic heart disease of native coronary artery without angina pectoris; I48.91 Unspecified atrial fibrillation; Z79.01 Long term (current) use of anticoagulants; Z87.891 Personal history of nicotine dependence; Z95.2 Presence of prosthetic heart valve
CPT/HCPCS: 29125; 99284; 70450; 73130

== ENCOUNTER 2024-12-03 08:39 | Outpatient (RCR) | payer MEDICARE, SELFPAY | END 2024-12-03 23:59 | disposition home or self-care (01) | LOC: ROT 08:39 | PROVIDERS: ATTENDING PHYSICIAN Student in an Organized Health Care Education/Training Program; FAMILY PHYSICIAN Internal Medicine | DX: S62.613D Displaced fracture of proximal phalanx of left middle finger, subsequent encounter for fracture with routine healing (principal); S62.615D Displaced fracture of proximal phalanx of left ring finger, subsequent encounter for fracture with routine healing; Z73.6 Limitation of activities due to disability; W10.1XXD Fall (on)(from) sidewalk curb, subsequent encounter | CPT/HCPCS: 97018; 97166; 97535 ==

== ENCOUNTER 2024-12-03 14:04 | Outpatient (RCR) | payer MEDICARE, SELFPAY | END 2024-12-03 23:59 | disposition home or self-care (01) | LOC: CRHB 14:04 | PROVIDERS: ATTENDING PHYSICIAN Internal Medicine Cardiovascular Disease | DX: Z95.2 Presence of prosthetic heart valve (principal) | CPT/HCPCS: G0422; G0423 ==

== ENCOUNTER 2025-01-04 08:28 | Outpatient (RCR) | payer MEDICARE, SELFPAY | END 2025-01-04 23:59 | disposition home or self-care (01) | LOC: ROT 08:28 | PROVIDERS: ATTENDING PHYSICIAN Student in an Organized Health Care Education/Training Program; FAMILY PHYSICIAN Internal Medicine | DX: S62.613D Displaced fracture of proximal phalanx of left middle finger, subsequent encounter for fracture with routine healing (principal); Z73.6 Limitation of activities due to disability; W10.1XXD Fall (on)(from) sidewalk curb, subsequent encounter; S62.615D Displaced fracture of proximal phalanx of left ring finger, subsequent encounter for fracture with routine healing | CPT/HCPCS: 97010; 97018; 97022; 97110; 97140 ==

== ENCOUNTER 2025-01-04 16:02 | Outpatient (RCR) | payer MEDICARE, SELFPAY | END 2025-01-04 23:59 | disposition home or self-care (01) | LOC: CRHB 16:02 | PROVIDERS: ATTENDING PHYSICIAN Internal Medicine Cardiovascular Disease; FAMILY PHYSICIAN Internal Medicine | DX: Z95.2 Presence of prosthetic heart valve (principal) | CPT/HCPCS: G0422; G0423 ==

== ENCOUNTER 2025-01-11 15:51 | Emergency (ER) | payer MEDICARE, SELFPAY ==
[2025-01-11 15:53] VITALS: BP 123/75
[2025-01-11 16:42] LABS: ALT (SGPT) 20 U/L (0-35); AST (SGOT) 29 U/L (14-36); Albumin 4.8 g/dl (3.5-5.0); Alkaline Phosphatase 67 U/L (38-126); Blood Urea Nitrogen 27 mg/dl (7-17); Calcium 10.1 mg/dl (8.4-10.2); Carbon Dioxide 31 mmol/L (22-30); Chloride 100 mmol/L (98-107); Glucose 91 mg/dl (70-99); Lipase 78 U/L (23-300); Potassium 4.3 mmol/L (3.5-5.1); Sodium 138 mmol/L (135-145); Total Protein 7.7 g/dl (6.3-8.2); eGFR > 60.00
[2025-01-11 16:50] LABS: Hematocrit 37.7 % (37.0-47.0); Hemoglobin 12.2 g/dL (12.0-16.0); Mean Corp Hgb Conc. 32.4 g/dL (33.0-37.0); Mean Corpuscular Volume 89.5 fL (81.0-99.0); Nucleated Red Blood Cells % 0 %; Platelet Count 288 10^3/uL (130-400); Red Cell Dist. Width 14.6 % (11.5-14.5)
[2025-01-11 16:51] LABS: Urine Character Clear (Clear)
[2025-01-11 19:02] LABS: Urine Red Blood Cell 0-2 /HPF (0-2)
--- NOTE | 2025-01-11 20:18 | ED.GENMED ---
History of Present Illness
<Galilea Soler PA-C - Last Filed: 01/12/25 12:09>
General
Chief Complaint: Abdominal Symptoms
Source: patient
Exam Limitations: none
Time Seen by Provider: 01/11/25 20:05
History of Present Illness
History of Present Illness:
79yoF with a history of aortic valve replacement, atrial fibrillation on Eliquis, coronary artery disease, CHF, hypertension, hyperlipidemia, and diverticulosis presenting for evaluation of abdominal pain. Symptoms began yesterday morning. She
initially had pain in the upper abdomen but pain has now migrated throughout the lower abdomen. Pain feels similar to her prior bout of diverticulitis. She is otherwise asymptomatic and denies any fevers, chills, nausea, vomiting, constipation,
diarrhea, hematochezia, dysuria. She was seen by her PCP today who ordered an outpatient CT scan but this was unable to be scheduled until Tuesday so she was sent to the ED for evaluation. Prior abdominal surgeries include a cholecystectomy.
Past History
<Galilea Soler PA-C - Last Filed: 01/12/25 12:09>
Past History
ED Past Medical History: Arrthythmia (Atrial flutter with ablation), CAD, Hypercholesterolemia, MD, Valvular disease and Other (Herniated disc, Diverticulitis, PE)
ED Past Surgical History: Cardiac (Aortic valve replaced,) and Cholecystectomy
Social History
Tobacco: Former smoker
Alcohol: Occasional
Drug: None
Personal: ( in Assisted living due to intracranial bleed after fall)
Living: other
Employment: Employed
Family History
Family History: Other (Noncontributory)
Phy Exam
<Galilea Soler PA-C - Last Filed: 01/12/25 12:09>
General Physical Exam
General Presentation: well appearing and no apparent distress
General Skin: warm and dry
General Habitus: normal and elderly
General Mental: alert
ENT Exam
ENT Exam: normocephalic
Pulmonary Exam
Pulmonary Exam: no respiratory distress
Gastrointestinal Exam
Gastrointestinal Exam: soft, non distended and other (+Generalized abdominal tenderness. Abdomen soft, non-distended. No rebound or guarding.)
Neurological Exam
Neurological Exam: alert
Enmanuel Coma Scale
Eye Opening: Spontaneous
Verbal Response: Oriented
Motor Response: Obeys Commands
GCS Total Score: 15
Skin Exam
Skin Exam: normal color and warm/dry
Psychiatric Exam
Psychiatric Exam: normal mood/affect
<Jackie Kelley MASONRY TEACHER - Last Filed: 01/12/25 01:54>
Enmanuel Coma Scale
GCS Total Score: 15
Course
<Galilea Soler PA-C - Last Filed: 01/12/25 12:09>
Orders/Labs/Results
Orders:
Orders
01/11/25 16:07
Complete Blood Count/With Diff Urgent
Comprehensive Metabolic Panel Urgent
Lipase Urgent
Urinalysis Reflex To Culture Urgent
Date Specimen was Collected: 01/11/25
Time Specimen was Collected: 15:59
Urine Microscopic Reflex Cult Urgent
01/11/25 20:12
CT Abd/pel W Iv And Oral Contr Urgent
Comment:
Reason For Exam: lower abd pain
Iohexol [Omnipaque] See Protocol PO NOW STA
01/11/25 20:23
Acetaminophen [Tylenol] 1,000 mg PO NOW STA
01/11/25 22:29
Diphenhydramine [Benadryl] 25 mg PO NOW STA
01/11/25 22:30
Diphenhydramine [Benadryl] 25 mg .ROUTE .STK-MED ONE
01/11/25 22:32
Diphenhydramine [Benadryl] 25 mg IV NOW STA
Abnormal Lab Results
01/11/25
16:07
MCHC 32.4 L g/dL
(33.0-37.0)
RDW 14.6 H %
(11.5-14.5)
MPV 11.2 H fL
(7.4-10.4)
Absolute Monos (auto) 0.7 H 10^3/uL
(0.1-0.6)
Monocytes % 11.7 H %
(1.7-9.3)
Carbon Dioxide 31 H mmol/L
(22-30)
BUN 27 H mg/dl
(7-17)
Urine Ketones 1+ A
(Negative)
Urine Bacteria (Reflex) Few A
(Negative)
Urine Glucose 4+ A
(Negative)
Urine Albumin (Reflex) 1+ A
(Neg - Trace)
01/11/25 16:07
01/11/25 16:07
Vital Signs
Initial and Last Documented VS:
Initial Vital Signs
Temp Pulse Resp BP Pulse Ox
98.4 F 100 20 123/75 97
01/11/25 15:53 01/11/25 15:53 01/11/25 15:53 01/11/25 15:53 01/11/25 15:53
Last Documented Vital Signs
Temp Pulse Resp BP Pulse Ox
98.2 F 65 30 113/65 98
01/11/25 22:27 01/11/25 22:41 01/11/25 22:41 01/11/25 22:27 01/11/25 22:27
<Jackie Kelley, MASONRY TEACHER - Last Filed: 01/12/25 01:54>
Orders/Labs/Results
Orders:
Orders
01/11/25 16:07
Complete Blood Count/With Diff Urgent
Comprehensive Metabolic Panel Urgent
Lipase Urgent
Urinalysis Reflex To Culture Urgent
Date Specimen was Collected: 01/11/25
Time Specimen was Collected: 15:59
Urine Microscopic Reflex Cult Urgent
01/11/25 20:12
CT Abd/pel W Iv And Oral Contr Urgent
Comment:
Reason For Exam: lower abd pain
Iohexol [Omnipaque] See Protocol PO NOW STA
01/11/25 20:23
Acetaminophen [Tylenol] 1,000 mg PO NOW STA
01/11/25 22:29
Diphenhydramine [Benadryl] 25 mg PO NOW STA
01/11/25 22:30
Diphenhydramine [Benadryl] 25 mg .ROUTE .STK-MED ONE
01/11/25 22:32
Diphenhydramine [Benadryl] 25 mg IV NOW STA
Abnormal Lab Results
01/11/25
16:07
MCHC 32.4 L g/dL
(33.0-37.0)
RDW 14.6 H %
(11.5-14.5)
MPV 11.2 H fL
(7.4-10.4)
Absolute Monos (auto) 0.7 H 10^3/uL
(0.1-0.6)
Monocytes % 11.7 H %
(1.7-9.3)
Carbon Dioxide 31 H mmol/L
(22-30)
BUN 27 H mg/dl
(7-17)
Urine Ketones 1+ A
(Negative)
Urine Bacteria (Reflex) Few A
(Negative)
Urine Glucose 4+ A
(Negative)
Urine Albumin (Reflex) 1+ A
(Neg - Trace)
01/11/25 16:07
01/11/25 16:07
Vital Signs
Initial and Last Documented VS:
Initial Vital Signs
Temp Pulse Resp BP Pulse Ox
98.4 F 100 20 123/75 97
01/11/25 15:53 01/11/25 15:53 01/11/25 15:53 01/11/25 15:53 01/11/25 15:53
Last Documented Vital Signs
Temp Pulse Resp BP Pulse Ox
98.2 F 65 30 113/65 98
01/11/25 22:27 01/11/25 22:41 01/11/25 22:41 01/11/25 22:27 01/11/25 22:27
<Galilea Soler PA-C - Last Filed: 01/12/25 12:09>
MDM/Problems Addressed
Differential Diagnosis Includes:
79yoF here with abd pain x 1 day. Feels like prior episodes of diverticulosis. VSS. Patient well appearing in no distress. No signs of peritonitis on abdominal exam. Differential diagnosis includes but is not limited to: diverticulitis, colitis,
constipation, nonspecific abdominal pain
Initial ED plan: Workup initiated in triage. Labs unremarkable including normal white count, renal function, LFTs, lipase. No overt signs of infection on urinalysis. Will check CT abdomen. Tylenol for pain.
<Jackie Kelley NP - Last Filed: 01/12/25 01:54>
MDM/Problems Addressed
Differential Diagnosis Includes:
79yoF here with abd pain x 1 day. Feels like prior episodes of diverticulosis. VSS. Patient well appearing in no distress. No signs of peritonitis on abdominal exam. Differential diagnosis includes but is not limited to: diverticulitis, colitis,
constipation, nonspecific abdominal pain
Initial ED plan: Workup initiated in triage. Labs unremarkable including normal white count, renal function, LFTs, lipase. No overt signs of infection on urinalysis. Will check CT abdomen. Tylenol for pain.
11:[address] abd/pelvis w IV and oral contrast radiology report read: IMPRESSION:
Diverticulosis. No evidence of acute diverticulitis. Mild to moderate colonic fecal burden. No evidence of bowel obstruction.
No obstructive uropathy.
Stable chronic findings including hepatic cysts and probable small focal transient hepatic enhancement anomaly. Stable prominence of the common bile duct with mild intrahepatic prominence, likely reflecting changes associated with patient age and
prior cholecystectomy. Correlation may be made with liver function tests.
Small pancreatic cystic structure has remained stable in size. There are 2 tiny calcific foci now demonstrated which are nonspecific. This could be a sign of underlying chronic pancreatitis or pseudocyst. Calcification related to mural nodules
cannot be entirely excluded. Continued imaging surveillance recommended in one year.
CT reviewed with Dr. Nye
Reviewed entire CAT scan report with patient and all questions answered. She was provided a copy
Pt stable for discharge.
<Galilea Soler PA-C - Last Filed: 01/12/25 12:09>
*Pulse Oximetry
SaO2: 97
Oxygen Mode of Delivery: Room air
<Jackie Kelley MASONRY TEACHER - Last Filed: 01/12/25 01:54>
*Pulse Oximetry
Patient hypoxic: not evaluated
*Critical Care Note
Total Time (30-74mins, 75-104mins- exclusive of procedures): Not Applicable
ED Attending Note
<Galilea Soler PA-C - Last Filed: 01/12/25 12:09>
-
Portions of this chart may have been created with voice recognition software.� Occasional wrong word or��sound alike� substitutions may have occurred due to the inherent limitations of voice recognition software.
Discharge Plan
Departure
Patient Disposition: Home (Routine Discharge)
Date of Disposition: 01/11/25
Time of Disposition: 23:44
Patient with high blood pressure during this ER visit?: No
Condition: Good
Discharge Problem:
Abdominal pain
Instructions: Abdominal Pain
Prescriptions:
No Action
nadolol 20 mg Tablet
10 mg PO DAILY
ezetimibe 10 mg Tablet
10 mg PO HS
Jardiance 10 mg Tablet
10 mg PO DAILY
acetaminophen [Tylenol] 325 mg Tablet
650 mg PO Q6H
polyethylene glycol 3350 [Miralax] 17 gram Powder In Packet
17 g PO DAILY
famotidine 20 mg Tablet
20 mg PO DAILY
aspirin 81 mg Capsule
81 mg PO DAILY
tramadol 25 mg Tablet
25 mg PO Q6H PRN (Reason: pain)
Rx Instructions:
No record of being filled in past year.
Senna Lax
8.6 mg PO DAILY
furosemide 40 mg Tablet
40 mg PO DAILY Qty: 30 0RF
warfarin [Jantoven] 4 mg Tablet
8 mg PO QPM Qty: 10 0RF
Referrals:
Saba Arndt MD [Family Provider, Internal Medicine] - As needed
Activity Restrictions/Additional Instructions:
As we discussed, nothing worrisome in your workup here today.
See Dr. Arndt if your symptoms persist.
Interventions
Interventions:
*Risk Screen - Suicide Last Done: 01/11/25 15:53
*General Assessment Last Done: 01/11/25 15:53
*Neglect/Abuse Screening Last Done: 01/11/25 15:53
*ED- Fall Risk Assessment Last Done: 01/11/25 21:12
*ED COVID-19 Vaccine History Last Done: 01/11/25 21:12
*ED Influenza Vaccine History Last Done: 01/11/25 21:12
*Nursing Disposition Last Done: 01/12/25 00:10
TN-Zdjfxu-Awiisklfyv Assessment Last Done: 01/11/25 23:10
Discharge Date and Time
Discharge Date/Time: 01/12/25 00:10
Print Language: SYRIAN
[2025-01-11] MEDS: OMNIPAQUE 50 ML PO (20:42)
[2025-01-11] MEDS: TYLENOL 1000 MG PO (20:43)
[2025-01-11 21:45] VITALS: BMI 22.5
[2025-01-11 22:27] VITALS: BP 113/65
[2025-01-11] MEDS: BENADRYL 25 MG IV (22:35)
== END 2025-01-12 00:10 | disposition home or self-care (01) ==
LOC: EMR 15:51
PROVIDERS: Student in an Organized Health Care Education/Training Program; EMERGENCY PHYSICIAN Emergency Medicine; FAMILY PHYSICIAN Internal Medicine
DX: R10.10 Upper abdominal pain, unspecified (principal); I48.91 Unspecified atrial fibrillation; I11.0 Hypertensive heart disease with heart failure; I50.9 Heart failure, unspecified; I25.10 Atherosclerotic heart disease of native coronary artery without angina pectoris; E78.00 Pure hypercholesterolemia, unspecified; Z79.01 Long term (current) use of anticoagulants; Z87.891 Personal history of nicotine dependence; Z90.49 Acquired absence of other specified parts of digestive tract; Z95.2 Presence of prosthetic heart valve
CPT/HCPCS: 99284; 96374; 74177; 80053; 81003; 81015; 83690; 85025; Q9967

== ENCOUNTER 2025-02-01 07:01 | Outpatient (RCR) | payer MEDICARE, SELFPAY | END 2025-02-01 23:59 | disposition home or self-care (01) | LOC: ROT 07:01 | PROVIDERS: ATTENDING PHYSICIAN Student in an Organized Health Care Education/Training Program; FAMILY PHYSICIAN Internal Medicine | DX: S62.613D Displaced fracture of proximal phalanx of left middle finger, subsequent encounter for fracture with routine healing (principal); S62.615D Displaced fracture of proximal phalanx of left ring finger, subsequent encounter for fracture with routine healing; Z73.6 Limitation of activities due to disability; W10.1XXD Fall (on)(from) sidewalk curb, subsequent encounter | CPT/HCPCS: 97010; 97018; 97110; 97140; 97760 ==

== ENCOUNTER 2025-02-01 13:20 | Outpatient (RCR) | payer MEDICARE, SELFPAY | END 2025-02-01 23:59 | disposition home or self-care (01) | LOC: CRHB 13:20 | PROVIDERS: ATTENDING PHYSICIAN Internal Medicine Cardiovascular Disease; FAMILY PHYSICIAN Internal Medicine | DX: Z95.2 Presence of prosthetic heart valve (principal); I50.32 Chronic diastolic (congestive) heart failure | CPT/HCPCS: G0422; G0423 ==

== ENCOUNTER 2025-02-20 14:15 | Outpatient (RCR) | payer MEDICARE, SELFPAY | END 2025-02-20 23:59 | disposition home or self-care (01) | LOC: CRHB 14:15 | PROVIDERS: ATTENDING PHYSICIAN Internal Medicine Cardiovascular Disease; FAMILY PHYSICIAN Internal Medicine | DX: Z95.2 Presence of prosthetic heart valve (principal); I50.32 Chronic diastolic (congestive) heart failure | CPT/HCPCS: G0422; G0423 ==

== ENCOUNTER 2025-02-21 14:39 | Outpatient (RCR) | payer MEDICARE, SELFPAY | END 2025-02-21 23:59 | disposition home or self-care (01) | LOC: ROT 14:39 | PROVIDERS: ATTENDING PHYSICIAN Student in an Organized Health Care Education/Training Program; FAMILY PHYSICIAN Internal Medicine | DX: S62.613D Displaced fracture of proximal phalanx of left middle finger, subsequent encounter for fracture with routine healing (principal); S62.615D Displaced fracture of proximal phalanx of left ring finger, subsequent encounter for fracture with routine healing; Z73.6 Limitation of activities due to disability; W10.1XXD Fall (on)(from) sidewalk curb, subsequent encounter | CPT/HCPCS: 97018; 97110; 97140; 97535 ==